=== PATIENT | female | born 1980 | race Caucasian/White ===

== ENCOUNTER 2018-05-09 20:02 | Emergency (ER) | payer SELFPAY ==
[2018-05-09 20:04] VITALS: BP 144/99; PULSE 83; RESP 12; TEMP 36.4; O2SAT 98; BMI 20.2
[2018-05-09 20:32] VITALS: BP 126/67; PULSE 73; RESP 15; O2SAT 99
[2018-05-09 20:38] VITALS: O2SAT 99
--- NOTE | 2018-05-09 20:40 | ED.RN ---
NO OLD EKG
--- NOTE | 2018-05-09 20:45 | RAD_ITS ---
STUDY: X-RAY CHEST REASON FOR EXAM: Female, 37 years old. Chest pain. TECHNIQUE: 2 frontal images of the chest were obtained. COMPARISON: April 11, 2015 FINDINGS: There is no new focal consolidation. There is no demonstrated pleural abnormality. Normal size heart. Normal mediastinum and madhu. Normal visualized pulmonary arteries. Normal visualized aortic arch and descending thoracic aorta. Normal visualized thoracic spine. Normal visualized ribs, clavicles, and shoulders. There is no demonstrated abnormality of the visualized soft tissue structures of the upper abdomen. RAD/Chest 1 View (Portable) IMPRESSION: No acute cardiopulmonary process. Electronically Signed: Alice Mcginnis MD at 21:39 EST Tel , Service support ,
[2018-05-09 21:24] LABS: Absolute Lymphocyte Count 0.44 X10^3/ul (0.83-4.51); Absolute Neutrophil Count 4.7 X10^3/uL (2.0-7.7); Basophil# 0.01 X10^3/uL; Basophil% 0.2 % (0-1); Eosinophil# 0.03 X10^3/uL; Eosinophils% 0.6 % (0-5); Hematocrit 36.5 % (37-47); Hemoglobin 12.6 g/dl (12.0-15.0); Lymphocyte # 0.44 X10^3/ul (4.0); Lymphocyte % 8.2 % (19-41); Mean Corp Hgb Conc 34.5 g/gl (32-36); Mean Corpuscular Hgb 31.3 pg (27.0-32.0); Mean Corpuscular Volume 90.6 fL (81-99); Mean Platelet Vol. 10.4 fl (6.2-12.0); Monocyte# 0.17 X10^3/uL; Monocyte% 3.2 % (0-10); Neutrophil # 4.72 X10^3/uL (2.7-7.7); Neutrophil % 87.8 % (47-70); Platelet Count 182 K/mm3 (150-450); RBC Distribution Width CV 12.1 % (11.6-14.6); RBC Distribution Width SD 39.6 fl (35.1-43.9); Red Blood Count 4.03 M/mm3 (4.2-5.4); White Blood Count 5.4 K/mm3 (4.4-11.0)
[2018-05-09 21:25] LABS: Differential Indicated SCAN CRITERIA MET; POSITIVE COUNT NO; POSITIVE DIFFERENTIAL YES; POSITIVE MORPHOLOGY NO
[2018-05-09 21:40] LABS: Pregnancy, Serum, hCG Quali. NEGATIVE Negative (0-9 Nonpreg)
[2018-05-09 21:44] LABS: Anion Gap 7 (5-15); BUN 21 mg/dL (7-18); BUN/Creat Ratio 22.9 RATIO (10-20); Calcium,Total 9.2 mg/dL (8.5-10.1); Chloride 106 mmol/L (98-107); Creatinine, Serum 0.92 mg/dL (0.55-1.02); EST Glomerular Filtration Rate 73 mL/min (>60); Est Glom Filt Rate - Afr Amer 88 mL/min (>60); Estimated Creatinine Clearance 79.83 ml/min; Glucose 104 mg/dL (74-106); Sodium Level 141 mmol/L (136-145); Thyroid Stim Hormone (TSH) 1.02 uIU/mL (0.358-3.74)
[2018-05-09 21:50] LABS: Differential Comment SCANNED
--- NOTE | 2018-05-09 22:05 | ED.DCSUM_ITS ---
- ER Visit Summary Date of Service: 05/09/18 Chief Complaint: Palpitations History of Present Illness: The patient is a 37 F. Prior PE years ago history of hypertension after being ill. Normal exam patient states that today she had heart racing. Denies any chest pain. No hemoptysis. No shortness of breath. She has some nausea without vomiting. No melena. No recent travel, surgery, immobilization. No leg pain or swelling. Physical Examination: Well-appearing young female. Vital signs are stable and afebrile. Her current pulse is 73 her pulse ox is 90% on room air no signs of hypoxia. Blood pressure 126/67. She does not look septic or toxic. She is in no distress. Her is at bedside. HEENT exam unremarkable. Pupils round reactive light. Moist weeks membranes. No facial droop. Neck nontender. No lymphadenopathy. No thyromegaly. Lungs clear to auscultation bilaterally. Heart regular rate and rhythm rate about 70s no murmur. Abdomen is soft nontender. Nondistended. Normal bowel sounds no peritoneal signs. Patient moving all 4 extremities. Neurovascular intact. Calves nontender without edema or cords. Neurologically patient is awake alert with no focal motor or sensory deficits. Back exam nontender. Skin normal. No petechiae or purpura. No rashes. Test Results: EKG sinus rhythm a rate of 74 with incomplete right bundle branch block. Otherwise no acute abnormalities. CBC normal with a white count of 5. Hemoglobin of 12. Serum test negative. Chemistries are normal. Troponin is normal. TSH is normal at 1.0. Chest x-ray shows normal cardiac silhouette mediastinum. Normal size heart. Emergency Department Course and Treatment: Repeat exam patient is doing well at 2210. Exam remains normal. I went over all test results with her and her [facility] nd. She will be discharged home. She will follow-up with [facility] who she has been evaluated by in the past. We discussed the possibility of her having a environmental monitoring specialist placed as an outpatient. Treatment Plan: Discharge and follow-up as an outpatient. Possible cardiac monitoring. Disposition: Discharge Impression: Acute palpitations uncertain etiology This note was generated with [employer] software. It may contain incorrect words, spelling, and punctuation that were not noted in review of the chart prior to signing ED Disposition - Plan for ED Patient: Chief Complaint: Palpitations Referrals: Care Physician,No Primary [Primary Care Provider] -
--- NOTE | 2018-05-09 22:20 | ED.DEP ---
ED Disposition - Plan for ED Patient: Disposition: Home or Assisted Living Chief Complaint: Palpitations Instructions: ED Palpitations Referrals: Nicolasa Vasquez DO [STAFF PHYSICIAN] - As soon as possible Additional Instructions: Follow-up with Dr. Luciana Singh. You and her can discuss possible outpatient cardiac monitoring.
[2018-05-09 22:31] VITALS: BP 116/72; PULSE 75; RESP 16; O2SAT 96
== END 2018-05-09 22:31 | disposition home or self-care (01) ==
PROVIDERS: Emergency Provider Emergency Medicine
DX: R00.2 Palpitations (principal); I10 Essential (primary) hypertension; I45.10 Unspecified right bundle-branch block; R11.0 Nausea; Z86.711 Personal history of pulmonary embolism
CPT/HCPCS: 71045; 80048; 84443; 84484; 84703; 85025; 93005; 99285; A4216

== ENCOUNTER → 2018-05-19 11:45 | Outpatient (CLI) | payer SELFPAY ==
[2018-05-09 20:04] VITALS: BMI 20.2
[2018-05-19 13:04] LABS: Absolute Lymphocyte Count 0.67 X10^3/ul (0.83-4.51); Absolute Neutrophil Count 4.4 X10^3/uL (2.0-7.7); Eosinophil# 0.01 X10^3/uL; Eosinophils% 0.2 % (0-5); Hematocrit 39.5 % (37-47); Hemoglobin 13.5 g/dl (12.0-15.0); Lymphocyte # 0.67 X10^3/ul (4.0); Lymphocyte % 12.6 % (19-41); Mean Corp Hgb Conc 34.2 g/gl (32-36); Mean Corpuscular Hgb 30.5 pg (27.0-32.0); Mean Corpuscular Volume 89.2 fL (81-99); Mean Platelet Vol. 10.2 fl (6.2-12.0); Monocyte# 0.28 X10^3/uL; Monocyte% 5.3 % (0-10); Neutrophil # 4.36 X10^3/uL (2.7-7.7); Neutrophil % 81.7 % (47-70); POSITIVE COUNT NO; POSITIVE DIFFERENTIAL NO; POSITIVE MORPHOLOGY NO; Platelet Count 203 K/mm3 (150-450); RBC Distribution Width CV 12.3 % (11.6-14.6); RBC Distribution Width SD 39.7 fl (35.1-43.9); Red Blood Count 4.43 M/mm3 (4.2-5.4); White Blood Count 5.3 K/mm3 (4.4-11.0)
== END ==
PROVIDERS: Family Provider Internal Medicine; PCP Internal Medicine; Referring Provider Nurse Practitioner; Visit Provider Nurse Practitioner
DX: D72.810 Lymphocytopenia (principal)
CPT/HCPCS: 36415; 85025

== ENCOUNTER → 2018-05-21 13:52 | Outpatient (CLI) | payer SELFPAY ==
[2018-05-09 20:04] VITALS: BMI 20.2
== END ==
PROVIDERS: Family Provider Internal Medicine; PCP Internal Medicine; Referring Provider Nurse Practitioner; Visit Provider Nurse Practitioner
DX: R00.2 Palpitations (principal); D72.810 Lymphocytopenia
CPT/HCPCS: 93225; 93226

== ENCOUNTER → 2018-05-28 06:37 | Outpatient (CLI) | payer SELFPAY ==
[2018-05-09 20:04] VITALS: BMI 20.2
--- NOTE | 2018-05-28 06:39 | CT_ITS ---
STUDY: CT BRAIN WITHOUT CONTRAST REASON FOR EXAM: Female, 37 years old. Pressure, tingling sensation for 3 weeks RADIATION DOSAGE (If Supplied By Facility): CTDIvol = ( 44.99 ) mGy, DLP = ( 762.36 ) mGycm TECHNIQUE: Transaxial CT imaging of the brain was performed without administration of intravenous contrast material. Individualized dose optimization techniques were used for this CT. COMPARISON: None. FINDINGS: Normal soft tissue structures. Normal calvarium. Normal size ventricles and extra-axial spaces for the patient's age. Normal white matter tracts of the cerebral hemispheres. Normal basal ganglia and thalami. Normal brainstem. Normal cerebellum. There is no intracranial hemorrhage. There are no findings of an acute ischemic infarction. Normal visualized paranasal sinuses. CT/Brain/Head without Contrast IMPRESSION: Normal unenhanced CT scan of the brain. Electronically Signed: Pepe Whyte MD at 17:39 EST , Service support ,
--- NOTE | 2018-05-28 06:40 | US_ITS ---
STUDY: ABDOMINAL ULTRASOUND REASON FOR EXAM: Female, 37 years old. Lymphopenia, dizziness TECHNIQUE: Transabdominal ultrasound was performed with real-time and static lira scale imaging. TECHNICAL QUALITY: Adequate. COMPARISON: Renal ultrasound of 02/09/2014 FINDINGS: Liver: The liver measures 15.5 cm. There is normal echogenicity of the liver. The bile ducts are within normal limits. There is hepatic color flow. The direction of portal flow is hepatopetal. There is no demonstrated mass lesion. Gallbladder: Normal distended gallbladder. The gallbladder wall measures 2.8 mm. There is a negative sonographic Rincon's sign. There is no pericholecystic fluid. There are no gallstones. Common Bile Duct (C.B.D.): The common bile duct measures 3.0 mm. Pancreas: Normal size of the head, body and tail of the pancreas. There is normal echogenicity of the pancreas. There is no demonstrated pancreatic mass or cyst. Spleen: Normal size of the spleen. The spleen measures 3.9 x 3.8 x 11.3 cm. No hepatic masses. Right Kidney: Normal size of the right kidney. The right kidney measures 11.8 x 5.1 x 5.5 cm. Normal renal cortex. The right cortex measures 1.6 cm. There is no demonstrated renal mass or cyst. There is no right hydronephrosis. There are small punctate calcifications of the right kidney measuring 4 mm. Left Kidney: Normal size of the left kidney. The left kidney measures 10.6 x 4.1 x 4.9 cm. Normal renal cortex. The left cortex measures 1.3 cm. There is no demonstrated renal mass or cyst. There is no left hydronephrosis. There are small punctate calcifications of the left kidney measuring up to 4 mm. Aorta: Normal caliber without evidence of aneurysm. Mild degree of atherosclerosis. I.V.C.: The IVC is patent. There is no ascites. US/Abdomen Complete IMPRESSION: 1. No hepatic or splenic masses. Normal size of the liver and spleen. 2. Nonobstructing bilateral nephrolithiasis. No hydronephrosis. 3. Mild abdominal aortic atherosclerosis. Electronically Signed: Pepe Whyte MD at 17:42 EST , Service support ,
== END ==
PROVIDERS: Family Provider Internal Medicine; PCP Internal Medicine; Referring Provider Nurse Practitioner; Visit Provider Nurse Practitioner
DX: R51 Headache (principal); D72.810 Lymphocytopenia
CPT/HCPCS: 70450; 76700

== ENCOUNTER → 2018-06-04 13:57 | Outpatient (CLI) | payer SELFPAY ==
[2018-05-09 20:04] VITALS: BMI 20.2
--- NOTE | 2018-06-04 14:06 | US_ITS ---
STUDY: ULTRASOUND TRANSVAGINAL CLINICAL: Female, 37 years old. Lymphopenia. TECHNIQUE: Transvaginal COMPARISON: None. FINDINGS: Normal uterine size measuring 8.9 cm in maximal craniocaudal dimension. There are no myometrial masses. Normal endometrial thickness measuring 7.4 mm. There are no endometrial masses, and there is no fluid in the endometrial cavity. Normal uterine cervix. The patient status post right oophorectomy. Normal left ovary, measuring 3.5 x 3.2 x 2.6 cm. There is a 2.0 x 2.2 x 1.4 cm simple cyst. There is no free fluid in the pelvis. Polycystic ovary disease: No. US/Pelvic (Non ) IMPRESSION: 2.0 x 2.2 x 1.4 cm simple left ovarian cyst. Electronically Signed: Alice Mcginnis MD at 16:07 EST Tel , Service support ,
--- NOTE | 2018-06-04 14:07 | US_ITS ---
STUDY: ULTRASOUND TRANSVAGINAL CLINICAL: Female, 37 years old. Lymphopenia. TECHNIQUE: Transvaginal COMPARISON: None. FINDINGS: Normal uterine size measuring 8.9 cm in maximal craniocaudal dimension. There are no myometrial masses. Normal endometrial thickness measuring 7.4 mm. There are no endometrial masses, and there is no fluid in the endometrial cavity. Normal uterine cervix. The patient status post right oophorectomy. Normal left ovary, measuring 3.5 x 3.2 x 2.6 cm. There is a 2.0 x 2.2 x 1.4 cm simple cyst. There is no free fluid in the pelvis. Polycystic ovary disease: No. US/Transvaginal Non- IMPRESSION: 2.0 x 2.2 x 1.4 cm simple left ovarian cyst. Electronically Signed: Alice Mcginnis MD at 16:07 EST Tel , Service support ,
--- OUTSIDE RECORDS SUMMARY | 2018-08-09 03:53 | XMS RPT_ITS | Continuity of Care Document ---
:1980 Author Organization [facility] Address [facility] [address] [address] Phone Care Team Providers Name Role Phone Nicolasa Vasquez DO Unavailable Physical Therapy, [facility] Unavailable GravElly richardson Unavailable Unavailable Unavailable Unavailable Problems Name Dates Details Abdominal aortic atherosclerosis (I70.0, 440.0) Status: Active Abnormal blood finding (R79.9, 790.99) Status: Active Abortions/Miscarriages Comments: Spontaneous , 1, 1st trimester Status: Active Anxiety (F41.9, 300.00) Status: Active Bilateral nephrolithiasis (N20.0, 592.0) Comments: asx Status: Active Body mass index (BMI) of 19.0-19.9 in adult (Z68.1, V85.1) Status: Active Current nonsmoker (Renamed from Current non-smoker) (Z78.9, V49.89) Status: Active Deliveries (Parity) Comments: Term, 5 Status: Active Dizzy spells (R42, 780.4) Comments: i think related to adrenal fatigue -- hormone imbalance -- that saliva testing is pending Status: Active Elevated liver enzymes (R74.8, 790.5) Comments: better nowr/t tylenol, had been using pretty consistently with fever, cough and pneumonia Status: Active Insomnia (G47.00, 780.52) Comments: sleeping better now on adrenal support Status: Active 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 will do hypercoag labs after off xarelto for 2 weeks.right middle lobe pulmonary arterial branches 03-31-15. she was sick and with pneumonia at time had PE. no estrogen. was nursing at time. 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 Xray to rule out fracture.Doppler US of legs(Recent PE, recently stopped xarelto, recent travel) ,no symptoms of PEPhysical therapy for enrike ceps strengthening exercises.Stretching exercisesAvoid high impact activityNaproxen BID prn for pain and before PT.Rest, Icing, Compression, Elevation.If symptoms dont improve in the next 2-3 weeks, usman gonzalez an appointment for follow up.pain in rt knee for 2 years now worse for 2 weeks.Worse with bending, driving, sitting, walking up and down stairs, running, squatting.Radiates up and down thigh and le g laterally.Doesnt hurt on standing or putting weight on knee.Denies falls injuries.Worse last nightBlod clot Mar 2015, no travel at that time, xarelto 6 months , end of august stopped xarelto. At that time had PNA, pleuritic CP, fever for 12 days.HAs protein S deficiency and seeing anjana next week.Doppler 3 weeks ago negative.[place] car ride 10 hours, 1week ago and took breaks, pain is worse after th atNo Chest pain or shortness of breath., no fever or pleuritic chest pain now.No pain medications, tried ice not helps with pain. No redness/swelling Status: Active Unspecified Diagnosis Status: Active Medications Name Dates Details af betafood Active 6 daily cataplex d Active 6 daily cataplez d Active cortisol balance Active 2 daily Emergen-C Immune Oral Packet Active 1 daily Multivitamin Women Oral Tablet Active 1 daily pineal code drops Active 2 drops daily theanine serene with relora Active 4 daily ANUSOL-HC, 25MG (Rectal Suppository) 1 1/2 (one and a half) Suppository qhs / HS for 0 days Quantity: 30 {Suppository} Refills: 2 Ordered:06-May-2010 ADRIANA Hammonds Start : 15-Mar-2008 End : 06-May-2010 Inactive AUGMENTIN, 875-125MG (Oral Tablet) 1 (one) Tablet Tablet bid for 0 days Quantity: 20 {Tablet} Refills: 0 Ordered:16-Apr-2015 ADRIANA Hammonds Start : 16-Mar-2015 End : 16-Apr-2015 Inactive LEVOFLOXACIN, 500MG (Oral Tablet) 1 (one) Tablet qd for 0 days Quantity: 14 {Tablet} Refills: 0 Ordered:16-Apr-2015 ADRIANA Hammonds Start : 21-Mar-2015 End : 16-Apr-2015 Inactive MEDROL (BRIANNA), 4MG (Oral Tablet) 1 (one) Tablet uad follow directions on box for 30 days Quantity: 1 {Package} Refills: 0 Ordered:08-Nov-2015 Chong Pal MD Start : 08-Nov-2015 End : 08-Dec-2015 Inactive NAPROXEN SODIUM, 220MG (Oral Tablet) 1 (one) Tablet two times daily, as needed for 7 days Quantity: 14 {Tablet} Refills: 0 Ordered:15-Nov-2015 Chong Pal MD Start : 07-Nov-2015 End : 14-Nov-2015 Inactive Comments:Medication taken as needed. No Known Historical Medications XARELTO, 20MG (Oral Tablet) 1 (one) Tablet qd for 0 days Quantity: 30 {Tablet} Refills: 0 Ordered:24-Sep-2015 ADRIANA Hammonds Start : 16-Apr-2015 End : 24-Sep-2015 Inactive LEONCIO 28, 3-0.03MG (Oral Tablet) 1 QD for 0 days Refills: 0 Ordered:17-Sep-2006 ADRIANA Hammonds End : 17-Sep-2006 Inactive IBUPROFEN, 100MG (Oral Tablet) 3 (three) Tablet tid/prn for 0 days Refills: 0 Ordered:14-Apr-2006 Emi Matthews Start : 14-Apr-2006 End : 15-Mar-2008 Discontinued Comments:home supply pre betsey vitamin End : 15-Mar-2008 Discontinued PRENATE ELITE, [id number]-MCG-MCG (PO Tab) 1 qd for 0 days Refills: 0 Ordered:16-Mar-2015 ADRIANA Hammonds End : 16-Mar-2015 Discontinued Comments:This order discontinued per [facility]. Allergies and Adverse Reactions Name Dates Details No Known Drug Allergies (Allergy) Status: Active Past Medical History Name Dates Details Chest pain (R07.9, 786.50) Status: Inactive as of 16-Apr-2015 Cough (R05, 786.2) Comments: maybe viral uri vs bacterial Status: Inactive as of 16-Apr-2015 Elevated d-dimer (R79.89, 790.92) Status: Inactive as of 16-Apr-2015 Fever (R50.9, 780.60) Status: Inactive as of 16-Apr-2015 Foot pain (M79.673, 729.5) Comments: Hinds's neuroma. handout given nsaids rest no high heels. pads for metatarsal heads. if not better inject. Status: Inactive as of 16-Mar-2015 Pain of hand, unspecified laterality (M79.643, 729.5) Status: Inactive as of 16-Mar-2015 Pressure in head (R51, 784.0) Status: Resolved as of 07-Jun-2018 Rectal bleeding (K62.5, 569.3) Comments: suspect internal hemorrhoid Status: Resolved as of 28-Nov-2008 Tendonitis of other site (M77.8, 727.09) Comments: de Quervain Tenosynovitis.Right- Wear brace if it helps. Continue anti-inflam. Status: Resolved as of 28-Nov-2008 Procedures Procedure Dates Details Oophorectomy; Unilateral Completed Comments: 1996 Date Value Details 04-Jun-2018 Pelvic (Non ) Result: Comments: See Note; NOTES: [facility] Imaging Services [address] [place] [address] Pelvic (Non ) MR#: [id number] Acct: [id number] Name: BEAN IGLESIAS Rep #: [id number] : 1980 F 37 From: Alice Mcginnis MD PCP: Nicolasa Vasquez DO Status: REG CLI Study: Pelvic (Non ) Date of Exam: 06/04/18 Exam# [id number] Ordering Dr: Tahira Arriaga SENIOR QUALITY ASSURANCE ANALYSTKelsy STUDY: ULTRASOUN D TRANSVAGINAL CLINICAL: Female, 37 years old. Lymphopenia. TECHNIQUE: Transvaginal COMPARISON: None. FINDINGS: Normal uterine size measuring 8.9 cm in maximal c raniocaudal dimension. There are no myometrial masses. Normal endometrial thickness measuring 7.4 mm. There are no endometrial masses, and there is no fluid in the endometrial cavity. Normal uterine c ervix. The patient status post right oophorectomy. Normal left ovary, measuring 3.5 x 3.2 x 2.6 cm. There is a 2.0 x 2.2 x 1.4 cm simple cyst. There is no free fluid in the pelvis. Polycystic ovary disease: No. US/Pelvic (Non ) IMPRESSION: 2.0 x 2.2 x 1.4 cm simple left ovarian cyst. Electronically Signed: Alice Mcginnis MD at 16:07 EST Tel , Service support , CC: Tahira Arriaga NP; Nicolasa Vasquez DO Vertical Boring Mill Operator: Signed 04-Jun-2018 Transvaginal Non- Result: Comments: See Note; NOTES: [facility] Imaging Services [address] [place] [address] Transvaginal Non- MR#: [id number] Acct: [id number] Name: CHUCKGARRY RoseANISH Ansari Rep #: [id number] : 1980 F 37 From: Alice Mcginnis MD PCP: Nicolasa Vasquez DO Status: REG CLI Study: Transvaginal Non- Date of Exam: 06/04/18 Exam# [id number] Ordering Dr: Tahira Arriaga SENIOR QUALITY ASSURANCE ANALYSTKelsy STUDY: U LTRASOUND TRANSVAGINAL CLINICAL: Female, 37 years old. Lymphopenia. TECHNIQUE: Transvaginal COMPARISON: None. FINDINGS: Normal uterine size measuring 8.9 cm in m aximal craniocaudal dimension. There are no myometrial masses. Normal endometrial thickness measuring 7.4 mm. There are no endometrial masses, and there is no fluid in the endometrial cavity. Normal u terine cervix. The patient status post right oophorectomy. Normal left ovary, measuring 3.5 x 3.2 x 2.6 cm. There is a 2.0 x 2.2 x 1.4 cm simple cyst. There is no free fluid in the pelvis. Polycysti c ovary disease: No. US/Transvaginal Non- IMPRESSION: 2.0 x 2.2 x 1.4 cm simple left ovarian cyst. Electronically Signed: Alice Mcginnis MD at 16:07 EST Tel , Service support , CC: Tahira Arriaga NP; Nicolasa Vasquez DO [employer] Boring Mill Operator: Signed 28-May-2018 Abdomen Complete Result: Comments: See Note; NOTES: [facility] Imaging Services [address] [place] [address] Abdomen Complete MR#: [id number] Acct: [id number] Name: BEAN IGLESIAS Rep #: [id number] : 1980 F 37 From: Pepe Whyte MD PCP: Nicolasa Vasquez DO Status: REG CLI Study: Abdomen Complete Date of Exam: 05/28/18 Exam# [id number] Ordering Dr: Tahira Arriaga STUDY: ABDOMINAL ULTRASOUN D REASON FOR EXAM: Female, 37 years old. Lymphopenia, dizziness TECHNIQUE: Transabdominal ultrasound was performed with real-time and static lira scale imaging. TECHNICAL QUALITY: Adequate. COMPARIS ON: Renal ultrasound of 02/09/2014 FINDINGS: Liver: The liver measures 15.5 cm. There is normal echogenicity of the liver. The bile ducts are within normal limits. T here is hepatic color flow. The direction of portal flow is hepatopetal. There is no demonstrated mass lesion. Gallbladder: Normal distended gallbladder. The gallbladder wall measures 2.8 mm. There is a negative sonographic Rincon's sign. There is no pericholecystic fluid. There are no gallstones. Common Bile Duct (C.B.D.): The common bile duct measures 3.0 mm. Pancreas: Normal size of the head, reddy dy and tail of the pancreas. There is normal echogenicity of the pancreas. There is no demonstrated pancreatic mass or cyst. Spleen: Normal size of the spleen. The spleen measures 3.9 x 3.8 x 11.3 cm. No hepatic masses. Right Kidney: Normal size of the right kidney. The right kidney measures 11.8 x 5.1 x 5.5 cm. Normal renal cortex. The right cortex measures 1.6 cm. There is no demonstrated renal ma ss or cyst. There is no right hydronephrosis. There are small punctate calcifications of the right kidney measuring 4 mm. Left Kidney: Normal size of the left kidney. The left kidney measures 10.6 x 4. 1 x 4.9 cm. Normal renal cortex. The left cortex measures 1.3 cm. There is no demonstrated renal mass or cyst. There is no left hydronephrosis. There are small punctate calcifications of the left kidney measuring up to 4 mm. Aorta: Normal caliber without evidence of aneurysm. Mild degree of atherosclerosis. I.V.C.: The IVC is patent. There is no ascites. US/Abdomen Complete IMPRESSION: 1. No hepatic or splenic masses. Normal size of the liver and spleen. 2. Nonobstructing bilateral nephrolithiasis. No hydronephrosis. 3. Mild abdominal aorti c atherosclerosis. Electronically Signed: Pepe Whyte MD at 17:42 EST , Service support , CC: Tahira Arriaga NP; Nicolasa Vasquez DO [employer] Boring Mill Operator: Signed 28-May-2018 Brain/Head without Contrast Result: Comments: See Note; NOTES: [facility] Imaging Services [address] [place] [address] Brain/Head without Contrast MR#: [id number] Acct: [id number] Name: BEAN IGLESIAS Rep #: [id number] : 1980 F 37 From: Pepe Whyte MD PCP: Nicolasa Vasquez DO Status: REG CLI Study: Brain/Head without Contrast Date of Exam: 05/28/18 Exam# [id number] Ordering Dr: Tahira Arriaga SENIOR QUALITY ASSURANCE ANALYST-Migel STUD Y: CT BRAIN WITHOUT CONTRAST REASON FOR EXAM: Female, 37 years old. Pressure, tingling sensation for 3 weeks RADIATION DOSAGE (If Supplied By Facility): CTDIvol = ( 44.99 ) mGy, DLP = ( 762.36 ) mGycm TECHNIQUE: Transaxial CT imaging of the brain was performed without administration of intravenous contrast material. Individualized dose optimization techniques were used for this CT. COMPARISON: No ne. FINDINGS: Normal soft tissue structures. Normal calvarium. Normal size ventricles and extra-axial spaces for the patient's age. Normal white matter tracts of th e cerebral hemispheres. Normal basal ganglia and thalami. Normal brainstem. Normal cerebellum. There is no intracranial hemorrhage. There are no findings of an acute ischemic infarction. Normal visual ized paranasal sinuses. CT/Brain/Head without Contrast IMPRESSION: Normal unenhanced CT scan of the brain. Electronically Signed: Pepe Whyte MD at 17:39 EST , Service support , CC: Tahira Arriaga SENIOR QUALITY ASSURANCE ANALYST; Nicolasa Vasquez DO [employer] Mill Operator: Signed 20-Feb-2016 PT D/C of Non Returning Pt (1) Result: Comments: See Note; NOTES: [facility] [address] [place], [place] [address] Fax REHABILITATION SERVICES DISCHA RGE SUMMARY MR#: [id number] Acct: [id number] Name: BEAN IGLESIAS Rep #: [id number] : 1980 35 From: Tonia Medina DPT Referring Dr.: Michelle Thacker DO Status: REG RCR Insurance: SELF PAY INSURANCE HP - Discharge Summary (1) - Patient Information BEAN IGLESIAS was seen in my office for initial evaluation on 11/20/15. The following Plan of Care was established for this patient: Initial Frequen cy: 1x/Week Initial Duration: 4 Weeks - Anticipated Interventions Patient/Client Instruction: Educate patient on: Plan of Care For the Purpose of:: To decrease pain, To improve muscle performance and m otor function, To improve gait and locomotor functions, To increase flexibility/ROM, To improve endurance Therapeutic Exercise to Include: Strength training, Endurance training, Body mechanics, Gait and locomotor training, Passive ROM, Active ROM For the Purpose of:: To decrease pain, To increase ROM, To improve muscle performance and motor function, To improve gait and locomotor functions, To increas e flexibility/ROM, To improve endurance This patient was last seen in our office . Pertinent comments regarding their Physical therapy will appear below: Patient has not attended physical therapy in ov er 4 weeks- PT feels at this time it is appropriate to d/c and pt to return to MD as needed. At this point I will be discontinuing this patient from physical therapy. I would be happy to see this kecia ent again in the future if found appropriate by the physician. Thank you! Tonia Medina <Electronically signed by Tonia Medina DPT> 02/20/16 1013 CC: Michelle Thacker DO; Chong Pal ELR Signed 20-Nov-2015 Inital Evaluation (1) - PT Result: Comments: See Note; NOTES: [facility] [address] [place] [address] Fax REHABILITATION SE [facility] INITIAL EVALUATION MR#: [id number] Acct: [id number] Name: BEAN IGLESIAS Rep #: [id number] : 1980 35 From: Yisel Sidhu Referring Dr.: Chong Pal Status: REG RCR Insurance: SELF PAY INSURANCE Patient's Visit Information BEAN IGLESIAS is a 35 year old F referred to Physical Therapy by Chong Pal with a diagnosis of Right Knee Pain. Date of Evaluation: 11/20/15 Physical Therapist: Yisel Sidhu - Visit Plan Frequency: 1x/Week Duration: 4 Weeks - Subjective Subjective: Pt denies any known injury to R knee. Pt reports R anterior and lateral knee pain with any a ctivity that requires her to bend her knee especially with knealing, bending, or jumping. R knee pain for about 2 weeks. Pt reports decreased pain with activity over the last week. - Pain R kne Pain Intensity (Out of 10): 3 Pain Intensity Range: 8 - Objective Palpation: Normal bony landmark palaption, no swelling noted. Sensation: Normal B LE sensation. Pt denies numbness or tingling. M MT: L LE 5/5 R LE 4/5 with increased anterior and lateral knee pain. - Goals Goal 1:: pt will have decreased pain to 0/10 with activity to allow her to return to PLOF. Goal Time Frame: 2-4 Weeks G oal 2:: Pt will increase R LE strength to 5/5 to return to PLOF. Goal Time Frame: 2-4 Weeks Goal 3:: Pt will be independent with HEP to help improve strength, endurance, and activity tolerance to dec rease pain. Goal Time Frame: 2-4 Weeks - Rehabilitation Potential Physical Therapy Diagnosis: Right knee weakness and pain Rehabilitation Potential: Excellent - Anticipated Interventions Patient /Client Instruction: Educate patient on: Plan of Care For the Purpose of:: To decrease pain, To improve muscle performance and motor function, To improve gait and locomotor functions, To increase flex ibility/ROM, To improve endurance Therapeutic Exercise to Include: Strength training, Endurance training, Body mechanics, Gait and locomotor training, Passive ROM, Active ROM For the Purpose of:: To decrease pain, To increase ROM, To improve muscle performance and motor function, To improve gait and locomotor functions, To increase flexibility/ROM, To improve endurance Thank you for the tamara rosado to evaluate your patient. For Medicare and Medicare HMO plans, please review the plan of care and approve it. It will need to be FAXED BACK to us at [phone] for Medicare purposes. Cynthia roldan let me know if there are questions or concerns regarding this plan of care. Physician Signature: Date: <Electronically signed by Yisel Sidhu > 11/20/15 1521 CC: Chong Pal Signed For Medicare only, by signing this I certify the plan of care. Physicians Signature Date 16-Nov-2015 Venous Duplex Lower Extremity Result: Comments: See Note; NOTES: [facility] Cardiovascular Services [address] [place] [address] Venous Duplex US, Unilateral 11/15/15 1311 MR#: [id number] Acct: [id number] Name: BEAN IGLESIAS Rep #: [id number] : 1980 35 From: Constantine Justin MD Attending Dr: Chong Pal Status: REG CLI Ordering Dr: Chong Pal Date: 11/15/15 Location: [facility] Sex: F C Admitted : Reason For Study: LEG PAIN RIGHT LEFT GSV is normal. CFV is compressible, spontaneous, phasic , CFV is compressible, spontaneous, phasic, competent, and demonstrates normal competent and d emonstrates normal augmentation. augmentation. FV is compressible, spontaneous, phasic, competent and demonstrates normal augmentation. POP V is compressible, spontaneous, phasic, competent and de monstrates normal augmentation. T/P Trunk is compressible. PTV is compressible. RT PerV is compressible. Procedure Exam performed in department. A preliminary report was called and/or faxed to Colin Pal. Interpretation Summary Deep veins of the right lower extremity are patent and compressible segmentally. There is no evidence of right lower extremity deep vein thrombosis. Valvular competen ce appears intact within the proximal deep venous system on the right . The right greater saphenous vein appears patent and compressible segmentally. Ordering Physician: Chong Pal Performed By: Lizzie Hernandez RVT [id number] Date Constantine Justin MD CC: Chong Pal Date Dictated: 11/15/15 1311 Date Transcribed: 11/16/15 0242 [employer] Operator: Signed 07-Nov-2015 Knee 4 or More Views Result: Comments: See Note; NOTES: [facility] Imaging Services [address] [place] [address] Verdana 4d Knee 4 or More Views MR#: [id number] Acct: [id number] Name: BEAN IGLESIAS Rep #: [id number] : 1980 F 35 From: David Clark MD PCP: Mary Rose MD Status: REG CLI Study: Knee 4 or More Views Date of Exam: 11/07/15 Exam# [id number] Ordering Dr: Chong Pal STUDY: X-RAY - RIGHT KNEE REASON FOR EXAM: Female, 35 years old. Knee pain after running TECHNIQUE: 4 view(s) of the knee. COMPARISON: None. FINDINGS: N ormal visualized distal femur. Normal visualized proximal tibia and fibula. Normal proximal tibiofibular articulation. Normal medial femorotibial compartment. Normal lateral femorotibial compartment . Normal patellofemoral articulation. There is a soft tissue prominence in the suprapatellar region suggesting a small volume joint effusion. The soft tissue structures are unremarkable. IMPRESSION: Small joint effusion. Otherwise normal x-ray examination of the knee. Electronically Signed: David Clark MD, FACR at 16:53 EDT Tel , Service support [phone], RAD/Knee 4 or More Views IMPRESSION: Small joint effusion. Otherwise normal x-ray examination of the knee. Electronically Signed: David Clark MD, FACR at 16:53 EDT , Service support [phone], CC: Mary Rose MD; Chong Pal [employer]oring [employer] Operator: Signed 19-Oct-2015 Venous Duplex Lower Extremity Result: Comments: See Note; NOTES: [facility] Cardiovascular Services [address] [place] [address] Venous Duplex US - Lorenzo Extrem 10/19/15 1316 MR#: [id number] Acct: [id number] Name: BEAN IGLESIAS Rep #: [id number] : 1980 35 From: Constantine Justin MD Attending Dr: Mary Rose MD Status: REG CLI Ordering Dr: Mary Rose MD Date: 10/19/15 Location: [facility] Sex: F C Admitted: Reason For Study: PULMONARY EMBOLISM RIGHT LEFT GSV is normal. GSV is normal. CFV is compressible, spontaneous, phasic, CFV is compressible, spontaneous, phasic , competent and de monstrates normal competent, and demonstrates normal augmentation. augmentation. FV is compressible, spontaneous, phasic, FV is compressible, spontaneous, phasic, competent and demonstrates normal co mpetent and demonstrates normal augmentation. augmentation. POP V is compressible, spontaneous, phasic, POP V is compressible, spontaneous, phasic, competent and demonstrates normal competent and de monstrates normal augmentation. augmentation. T/P Trunk is compressible. T/P Trunk is compressible. PTV is compressible. PTV is compressible. RT PerV is compressible. LT PerV is compressible. RT LS V has thick pruitt. Left LSV has thick pruitt. Rt LSV is compressible. Left LSV is competent. Procedure Exam performed in department. A preliminary report was called and/or faxed to DR ROSE. Int erpretation Summary Deep veins of the lower extremities are bilaterally patent and compressible segmentally. There is no evidence of deep vein thrombosis on either side. Valvular competence appears in tact within the proximal deep venous systems bilaterally. The greater saphenous veins appear bilaterally patent and compressible segmentally. Small saphenous veins are patent and compressible bilate rally, though demonstrate chronic vein wall thickening. Ordering Physician: Mary Rose Pe rformed By: Summer Judd RDCS 10/19/15 1355 Date Constantine Justin MD CC: Nael Rose MD Date Dictated: 10/19/15 1316 Date Transcribed: 10/19/15 1351 [employer] Operator: Signed 11-Apr-2015 Chest PA and Lateral Result: Comments: See Note; NOTES: [facility] Imaging Services [address] [place] [address] Verdana 4d Chest PA and Lateral MR#: [id number] Acct: [id number] Name: BEAN IGLESIAS Rep #: [id number] : 1980 F 34 From: Young Garibay PCP: Mary Rose MD Status: REG CLI Study: Chest PA and Lateral Date of Exam: 04/11/15 Exam# [id number] Ordering Dr: Hernandez Hansen MD STUDY: X-RAY CHEST REASON FOR EXAM: Female, 34 years old. Shortness of breath TECHNIQUE: Frontal and lateral views of the chest. COMPARISON: None. FINDIN GS: The lungs are clear and expanded. There is no demonstrated pleural abnormality. Normal size heart. Normal mediastinum and madhu. Normal visualized pulmonary arteries. Normal visualized aortic a rch and descending thoracic aorta. Normal visualized thoracic spine. Normal visualized ribs, clavicles, and shoulders. There is no demonstrated abnormality of the visualized soft tissue structure s of the upper abdomen. IMPRESSION: No acute cardiopulmonary disease. Electronically Signed: Young Garibay DO at 23:48 EST , Service support [phone], RAD/Chest PA and Lateral IMPRESSION: No acute cardiopulmonary disease. Electronically Signed: Young Garibay DO at 23:48 EST T el [phone], Service support [phone], CC: Mary Rose MD; Hernandez Hansen MD Vertical Boring Mill Operator: Signed 21-Mar-2015 CTA Chest W/WO Contrast Result: Comments: See Note; NOTES: [facility] Imaging Services [address] [place] [address] Verdana 4d CTA Chest W/WO Contrast MR#: [id number] Acct: [id number] Name: BEAN BOYER Rep #: [id number] : 1980 F 34 From: Mohan Bray MD PCP: Mary Rose MD Status: REG CLI Study: CTA Chest W/WO Contrast Date of Exam: 03/21/15 Exam# [id number] Ordering Dr: Mary Sepulveda MD STUDY: CTA CHEST REASON FOR EXAM: Female, 34 years old. 5 day history of right upper chest pain with fever and cough. Elevated d-dimer. RADIATION DOSAGE (If Supplied By Facility): CTDIvol = ( 14.15 ) mGy, DLP = ( 615.86 ) mGycm TECHNIQUE: The examination was performed with the intravenous administration of 75ml ml of Isovue 370 contrast material. Post-processing of the asha ographic images was performed, with multiplanar reformation and 3D reconstruction. COMPARISON: None. FINDINGS: Inhomogeneous appearance of the right the thyroi d. There is evidence of intraluminal filling defects in the right middle lobe pulmonary arterial branches in keeping with acute pulmonary emboli. Normal thoracic aorta and visualized great vessels. There is no demonstrated aortic dissection. Normal heart and pericardium. Normal mediastinum. Normal hilar regions. Normal visualized trachea and bronchi. The lungs are well expanded. Small r ight old fusion with consolidation in the right middle lobe. This is in keeping with a pneumonic infiltration. Normal chest wall structures. Normal osseous structures. Normal visualized upper abd omen. IMPRESSION: Dense consolidation in the right middle lobe with small right pleural effusion Pulmonary emboli seen in the right middle lobe pulmonary arteri al branches. 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 Status: Active Smoking Status Name Dates Details Never smoker Vital Signs Date Test Result Details [id number]-Dcl-[id number]:36 Temperature 97.8 f Comments: Method: Temporal Pulse 81 /min Comments: Pattern: Regular Respiration Rate 18 /min Comments: Pattern: Unlabored O2 SAT 99 % Comments: Room air BP Systolic 120 mm[Hg] Comments: Patient Position: Sitting; Cuff Location: Left Arm; Cuff Size: Standard BP Diastolic 78 mm[Hg] Comments: Patient Position: Sitting; Cuff Location: Left Arm; Cuff Size: Standard Weight 128.2 lb Height 68 in Body Mass Index Calculated 19.49 kg/m2 Body Surface Area Calculated 1.69 m2 24-May-20188:46 Temperature 98.1 f Comments: Method: Temporal Pulse 85 /min Comments: Pattern: Regular Respiration Rate 17 /min Comments: Pattern: Unlabored O2 SAT 99 % Comments: Room air BP Systolic 120 mm[Hg] Comments: Patient Position: Sitting; Cuff Location: Left Arm; Cuff Size: Standard BP Diastolic 76 mm[Hg] Comments: Patient Position: Sitting; Cuff Location: Left Arm; Cuff Size: Standard Weight 126.2 lb Height 68 in Body Mass Index Calculated 19.19 kg/m2 Body Surface Area Calculated 1.68 m2 33-Jpj-938397:03 Comments: orthos:sitting- bp 112/70 pulse 98standing- bp 104/70 pulse 94 Temperature 98 f Comments: Method: Temporal Pulse 95 /min Comments: Pattern: Regular O2 SAT 98 % Comments: Room air BP Systolic 110 mm[Hg] Comments: Patient Position: Sitting; Cuff Location: Left Arm; Cuff Size: Standard BP Diastolic 72 mm[Hg] Comments: Patient Position: Sitting; Cuff Location: Left Arm; Cuff Size: Standard Weight 126.2 lb Height 68 in Body Mass Index Calculated 19.19 kg/m2 Body Surface Area Calculated 1.68 m2 :26 Temperature 98.1 f Comments: Method: Temporal Pulse 86 /min Comments: Pattern: Regular Respiration Rate 16 /min Comments: Pattern: Unlabored O2 SAT 99 % Comments: Room air BP Systolic 122 mm[Hg] Comments: Patient Position: Sitting; Cuff Location: Left Arm; Cuff Size: Standard BP Diastolic 74 mm[Hg] Comments: Patient Position: Sitting; Cuff Location: Left Arm; Cuff Size: Standard Weight 133 lb Height 68 in Body Mass Index Calculated 20.22 kg/m2 Body Surface Area Calculated 1.72 m2 :12 Temperature 97.6 f Comments: Method: Temporal Pulse 60 /min Comments: Pattern: Regular Respiration Rate 20 /min Comments: Pattern: Unlabored O2 SAT 99 % Comments: Room air BP Systolic 90 mm[Hg] Comments: Patient Position: Sitting; Cuff Location: Left Arm; Cuff Size: Standard BP Diastolic 60 mm[Hg] Comments: Patient Position: Sitting; Cuff Location: Left Arm; Cuff Size: Standard Weight 133 lb Height 68 in Body Mass Index Calculated 20.22 kg/m2 Body Surface Area Calculated 1.72 m2 :32 Temperature 97.6 f Comments: Method: Temporal Pulse 74 /min Comments: Pattern: Regular Respiration Rate 18 /min Comments: Pattern: Unlabored O2 SAT 99 % Comments: Room air BP Systolic 110 mm[Hg] Comments: Patient Position: Sitting; Cuff Location: Left Arm; Cuff Size: Standard BP Diastolic 70 mm[Hg] Comments: Patient Position: Sitting; Cuff Location: Left Arm; Cuff Size: Standard Weight 124 lb Height 68 in Body Mass Index Calculated 18.85 kg/m2 Body Surface Area Calculated 1.67 m2 :29 Temperature 97.2 f Comments: Method: Temporal Pulse 78 /min Comments: Pattern: Regular Respiration Rate 18 /min Comments: Pattern: Unlabored O2 SAT 98 % Comments: Room air BP Systolic 110 mm[Hg] Comments: Patient Position: Sitting; Cuff Location: Left Arm; Cuff Size: Standard BP Diastolic 74 mm[Hg] Comments: Patient Position: Sitting; Cuff Location: Left Arm; Cuff Size: Standard Weight 124 lb Height 68 in Body Mass Index Calculated 18.85 kg/m2 Body Surface Area Calculated 1.67 m2 :13 Comments: last motrin 1:30am Temperature 99.9 f Comments: Method: Oral Pulse 90 /min Comments: Pattern: Regular Respiration Rate 18 /min Comments: Pattern: Unlabored O2 SAT 98 % Comments: Room air BP Systolic 114 mm[Hg] Comments: Patient Position: Sitting; Cuff Location: Left Arm; Cuff Size: Standard BP Diastolic 74 mm[Hg] Comments: Patient Position: Sitting; Cuff Location: Left Arm; Cuff Size: Standard Weight 124 lb Height 68 in Body Mass Index Calculated 18.85 kg/m2 Body Surface Area Calculated 1.67 m2 :37 Temperature 98.8 f Comments: Method: Temporal Pulse 86 /min Comments: Pattern: Regular Respiration Rate 16 /min Comments: Pattern: Unlabored O2 SAT 98 % Comments: Room air BP Systolic 116 mm[Hg] Comments: Patient Position: Sitting; Cuff Location: Left Arm; Cuff Size: Standard BP Diastolic 78 mm[Hg] Comments: Patient Position: Sitting; Cuff Location: Left Arm; Cuff Size: Standard Weight 124 lb Height 68 in Body Mass Index Calculated 18.85 kg/m2 Body Surface Area Calculated 1.67 m2 :58 Temperature 98.1 f Comments: Method: Oral Pulse 68 /min Comments: Pattern: Regular Respiration Rate 18 /min Comments: Pattern: Unlabored BP Systolic 102 mm[Hg] Comments: Patient Position: Sitting; Cuff Location: Left Arm; Cuff Size: Standard BP Diastolic 70 mm[Hg] Comments: Patient Position: Sitting; Cuff Location: Left Arm; Cuff Size: Standard Weight 120 lb Height 68 in Body Mass Index Calculated 18.25 kg/m2 Body Surface Area Calculated 1.65 m2 :46 Temperature 97.6 f Comments: Method: Oral Pulse 70 /min Comments: Pattern: Regular Respiration Rate 18 /min Comments: Pattern: Unlabored BP Systolic 100 mm[Hg] Comments: Patient Position: Sitting; Cuff Location: Left Arm; Cuff Size: Standard BP Diastolic 64 mm[Hg] Comments: Patient Position: Sitting; Cuff Location: Left Arm; Cuff Size: Standard Weight 120 lb :59 Temperature 98 f Comments: Method: Oral Pulse 68 /min Comments: Pattern: Regular Respiration Rate 18 /min Comments: Pattern: Unlabored BP Systolic 110 mm[Hg] Comments: Patient Position: Sitting; Cuff Location: Left Arm; Cuff Size: Standard BP Diastolic 64 mm[Hg] Comments: Patient Position: Sitting; Cuff Location: Left Arm; Cuff Size: Standard Weight 128 lb Height 0 in Head Circumference 0.00 cm :09 Temperature 97.7 f Comments: Method: Oral Pulse 78 /min Comments: Pattern: Regular Respiration Rate 20 /min Comments: Pattern: Unlabored BP Systolic 90 mm[Hg] Comments: Patient Position: Sitting; Cuff Location: Left Arm; Cuff Size: Standard BP Diastolic 60 mm[Hg] Comments: Patient Position: Sitting; Cuff Location: Left Arm; Cuff Size: Standard Weight 123 lb Height 0 in Head Circumference 0.00 cm :54 Temperature 98.5 f Comments: Method: Undefined Pulse 64 /min Comments: Pattern: Regular Respiration Rate 16 /min Comments: Pattern: Undefined BP Systolic 86 mm[Hg] Comments: Patient Position: Sitting; Cuff Location: Left Arm; Cuff Size: Standard BP Diastolic 58 mm[Hg] Comments: Patient Position: Sitting; Cuff Location: Left Arm; Cuff Size: Standard Weight 124 lb Height 0 in Head Circumference 0.00 cm :13 Temperature 99.1 f Comments: Method: Oral Pulse 58 /min Comments: Pattern: Regular Respiration Rate 14 /min Comments: Pattern: Unlabored BP Systolic 110 mm[Hg] Comments: Patient Position: Sitting; Cuff Location: Left Arm; Cuff Size: Standard BP Diastolic 60 mm[Hg] Comments: Patient Position: Sitting; Cuff Location: Left Arm; Cuff Size: Standard Weight 0 lb Height 0 in Head Circumference 0.00 cm Results Date Description Value Details 0-Syy-296972:21 Thyroid Peroxidase 13 {IU/mL} Comments: PATIENT NOT FASTINGPERFORMED BY: [employer] Esjabp8869 [facility] [id number] (TPO) Ab (Normal) Range: 0-34 0-Akp-331792:21 D-Dimer ([id number]) Comments: PATIENT NOT FASTINGPERFORMED BY: [employer] Qtlwvj1342 [facility] [id number] D-Dimer 0.34 {mg/L_FEU} (Normal) Range: 0.00-0.49 Comments: According to the assay combination technician's published package insert, anormal (<0.50 mg/L FEU) D-dimer result in conjunction with a non-highclinical probability assessment, excludes deep vein thrombosis (D VT)and pulmonary embolism (PE) with high sensitivity. .D-dimer values increase with age and this can make VTE exclusion ofan older pop ulation difficult. To address this, the [employer], based on best available evidence and recent guidelines,recommends that clinicians use age-adjusted D-dimer thresholds inpatients gr eater than 50 years of age with: a) a low probability ofPE who do not meet all Pulmonary Embolism Rule Out Criteria, orb) in those with intermediate probability of PE. The formula for anage-adjusted D-d yessenia cut-off is age/100. For example, a 60 year oldpatient would have an age-adjusted cut-off of 0.60 mg/L FEU and an80 year old 0.80 mg/L FEU. 0-Bez-274569:21 LDH (LD) (LACTATE DEHYDROGENASE) Comments: PATIENT NOT FASTINGPERFORMED BY: CashBetSt. Mary's HospitalFlkkgk6883 [facility] [id number] ([id number]) LDH 134 [iU]/L (Normal) Range: 119-226 8-Ycx-506637:21 CBC, Platelets & Auto Diff Comments: PATIENT NOT FASTINGPERFORMED BY: 1010dataCoSt. Mary's HospitalNrzwcr6092 [facility] [id number] ([id number]) Immature Grans (Abs) 0.0 {x10E3/uL} (Normal) Range: 0.0-0.1 Immature Granulocytes 0 % (Normal) Baso (Absolute) 0.0 {x10E3/uL} (Normal) Range: 0.0-0.2 Eos (Absolute) 0.0 {x10E3/uL} (Normal) Range: 0.0-0.4 Monocytes(Absolute) 0.3 {x10E3/uL} (Normal) Range: 0.1-0.9 Lymphs (Absolute) 0.6 {x10E3/uL} (Abnormal) Range: 0.7-3.1 Neutrophils (Absolute) 4.0 {x10E3/uL} (Normal) Range: 1.4-7.0 Basos 0 % (Normal) Eos 0 % (Normal) Monocytes 7 % (Normal) Lymphs 12 % (Normal) Neutrophils 81 % (Normal) Platelets 223 {x10E3/uL} (Normal) Range: 150-379 RDW 13.5 % (Normal) Range: 12.3-15.4 MCHC 34.4 g/dL (Normal) Range: 31.5-35.7 MCH 30.8 pg (Normal) Range: 26.6-33.0 MCV 90 fL (Normal) Range: 79-97 Hematocrit 38.7 % (Normal) Range: 34.0-46.6 Hemoglobin 13.3 g/dL (Normal) Range: 11.1-15.9 RBC 4.32 {x10E6/uL} (Normal) Range: 3.77-5.28 WBC 4.9 {x10E3/uL} (Normal) Range: 3.4-10.8 2-Hjb-432450:21 GONADOTROPIN-LH ([id number]) Comments: PATIENT NOT FASTINGPERFORMED BY: LabChristine Ville [id number] [facility] [id number] LH 2.9 m[iU]/mL (Normal) Comments: Adult Female: Follicular phase 2.4 - 12.6 Ovulation phase 14.0 - 95.6 Luteal phase 1.0 - 11.4 Postmenopausal 7.7 - 58.5 2-Utb-328229:21 GONADOTROPIN-FSH (22734) Comments: PATIENT NOT FASTINGPERFORMED BY: LabCoSt. Mary's HospitalDkrvzm8725 [facility] [id number] FSH 3.7 m[iU]/mL (Normal) Comments: Adult Female: Follicular phase 3.5 - 12.5 Ovulation phase 4.7 - 21.5 Luteal phase 1.7 - 7.7 Postmenopausal 25.8 - 134.8 5-Mst-062937:19 CBC W/Diff, Automated Comments: [facility] [address] [place], [address] Absolute Lymph 0.67 {X10_3/ul} (Abnormal) Range: 0.83-4.51 Absolute Neut 4.4 {X10_3/uL} (Normal) Range: 2.0-7.7 IM GRAN % 0.200 % (Normal) Range: 0.0-0.9 Comments: IG% - Immature Granulocytes (promyelocytes, myelocytes andmetamyelocytes) > 1% indicates that a LEFT SHIFT is Present. BASO% 0.0 % (Normal) Range: 0-1 EO% 0.2 % (Normal) Range: 0-5 MONO% 5.3 % (Normal) Range: 0-10 LY% 12.6 % (Abnormal) Range: 19-41 NEUT% 81.7 % (Abnormal) Range: 47-70 MPV 10.2 fL (Normal) Range: 6.2-12.0 PLT 203 K/mm3 (Normal) Range: 150-450 RDW SD 39.7 fL (Normal) Range: 35.1-43.9 RDW CV 12.3 % (Normal) Range: 11.6-14.6 MCHC 34.2 {g/gl} (Normal) Range: 32-36 MCH 30.5 pg (Normal) Range: 27.0-32.0 MCV 89.2 fL (Normal) Range: 81-99 HCT 39.5 % (Normal) Range: 37-47 HGB 13.5 g/dL (Normal) Range: 12.0-15.0 RBC 4.43 {M/mm3} (Normal) Range: 4.2-5.4 WBC 5.3 K/mm3 (Normal) Range: 4.4-11.0 77-Qyl-019273:58 CALCIFEDIOL (51838) Comments: PERFORMED BY: LabF[facility]6370 [facility] [id number] Vitamin D, 25-Hydroxy 27.5 ng/mL (Abnormal) Range: 30.0-100.0 Comments: Vitamin D deficiency has been defined by the [place] [employer] and an Endocrine Society practice guideline as alevel of serum 25-OH vitamin D less than 20 ng/mL (1,2).The Endocrine Society went on to further define vitamin Dinsufficiency as a level between 21 and 29 ng/mL (2).1. IOM ([place] of [employer]). 2010. Dietary reference intakes for calcium and D. [place]: The National Academies Press.2. Nitza BARBOSA, Shena RICHARDSON, Miguelito PATHAK, et al. Evaluation, treatment, and prevention of vitamin D deficiency: an Endocrine Society clinical practice guideline. JCEM. 2010; 96(7):1911-30. 86-Cwn-889862:58 VITAMIN B12 AND FOLATES Comments: PERFORMED BY: [facility]6370 [facility] [id number] (03332) Folate (Folic Acid), Serum 19.1 ng/mL (Normal) Comments: A serum folate concentration of less than 3.1 ng/mL isconsidered to represent clinical deficiency. Vitamin B12 680 pg/mL (Normal) Range: 232-1245 :58 T4, FREE (THYROXINE) (88970) Comments: PERFORMED BY: [facility]6370 [facility] [id number] T4,Free(Direct) 1.64 ng/dL (Normal) Range: 0.82-1.77 :58 T3, FREE (TRIDOTHYRONINE) (76802) Comments: PERFORMED BY: [facility]6370 [facility] [id number] Triiodothyronine (T3), Free 2.9 pg/mL (Normal) Range: 2.0-4.4 :58 TSH (THYROID STIMULATING Comments: PERFORMED BY: 1010dataFresenius [facility]6370 [facility] [id number] HORMONE) (30981) TSH 0.861 {uIU/mL} (Normal) Range: 0.450-4.500 77-Sqv-122440:46 Blood Glucose , Office (12073) Blood Glucose , Office 93 (Normal) 24-Ocw-371529:16 CBC W/Diff, Auto - EPLAB Comments: At [facility] Outpatient [facility], [place] [facility] Oncologypatients receive CBC w/auto Differential ONLY. Physicianwill place an order for a manual differential or Pathologistreview at his discretion. [facility] OUTPATIENT [facility]. [address] [place] [address] INSTRUCTOR CREELER: KARLA HENRY DO PH:[phone] Hospital [facility] [address] [place], [place], [id number] ; managed by Dr. Tito Pal Absolute Lymph 0.84 {X10_3/uL} (Normal) Range: 0.83-4.51 Absolute Neut 2.8 {X10_3/uL} (Normal) Range: 2.0-7.7 BASO% 0.5 % (Normal) Range: 0-1 EO% 1.0 % (Normal) Range: 0-5 MONO% 5.7 % (Normal) Range: 0-10 LY% 21.7 % (Normal) Range: 19-41 NEUT% 71.1 % (Abnormal) Range: 47-70 MPV 7.2 fL (Normal) Range: 6.2-12.0 PLT 165 K/mm3 (Normal) Range: 150-450 RDW 13.3 % (Normal) Range: 11.6-14.6 MCHC 32.7 g/dL (Normal) Range: 32-36 MCH 28.5 pg (Normal) Range: 27.0-32.0 MCV 87.2 fL (Normal) Range: 81-99 HCT 36.0 % (Abnormal) Range: 37-47 HGB 11.8 g/dL (Abnormal) Range: 12.0-15.0 RBC 4.13 {M/mm3} (Abnormal) Range: 4.2-5.4 WBC 3.9 K/mm3 (Abnormal) Range: 4.4-11.0 :53 D-Dimer (13687) Comments: copy to Dr. Pal; PATIENT NOT FASTINGPERFORMED BY: LabUberMediarp [address] [id number] BY: [facility] [address] [id number] D-Dimer 0.43 {mg/L_FEU} (Normal) Range: 0.00-0.49 Comments: According to the assay combination technician's published package insert, anormal (<0.50 mg/L FEU) D-dimer result in conjunction with a non-highclinical probability assessment, excludes deep vein thrombosis (D VT)and pulmonary embolism (PE) with high sensitivity. .D-dimer values increase with age and this can make VTE exclusion ofan older pop ulation difficult. To address this, the [employer], based on best available evidence and recent guidelines,recommends that clinicians use age-adjusted D-dimer thresholds inpatients gr eater than 50 years of age with: a) a low probability ofPE who do not meet all Pulmonary Embolism Rule Out Criteria, orb) in those with intermediate probability of PE. The formula for anage-adjusted D-d yessenia cut-off is age/100. For example, a 60 year oldpatient would have an age-adjusted cut-off of 0.60 mg/L FEU and an80 year old 0.80 mg/L FEU. :53 Protein S Profile Comments: copy to Dr. Pal; PATIENT NOT FASTINGPERFORMED BY: [employer] [id number] BY: sMedioAtrium Health [facility] City [id number] (60096) al Information: [id number], DRAW FEE [id number] Protein S-Functional 63 % (Normal) Range: 60-145 Protein S, Free 59 % (Normal) Range: 56-124 Protein S, Total 91 % (Normal) Range: 58-150 :53 LDH (LD) (LACTATE Comments: copy to Dr. Pal; PATIENT NOT FASTINGPERFORMED BY: [employer] [id number] BY: [employer] Gudftr5256 [address] [facility] [id number] DEHYDROGENASE) (40199) LDH 132 [iU]/L (Normal) Range: 119-226 :56 URIC ACID BLOOD (81122) Comments: copy to Dr. Pal; PATIENT NOT FASTINGPERFORMED BY: [employer]70 [facility] [id number] Uric Acid, Serum 4.0 mg/dL (Normal) Range: 2.5-7.1 Comments: Therapeutic target for gout patients: <6.0 :56 CBC WITH MANUAL DIFF Comments: copy to Dr. Pal; PATIENT NOT FASTINGPERFORMED BY: [employer] Fvjrit5594 [facility] [id number] Information: [id number] (01454) Immature Grans (Abs) 0.0 {x10E3/uL} (Normal) Range: 0.0-0.1 Immature Granulocytes 0 % (Normal) Baso (Absolute) 0.0 {x10E3/uL} (Normal) Range: 0.0-0.2 Eos (Absolute) 0.1 {x10E3/uL} (Normal) Range: 0.0-0.4 Monocytes(Absolute) 0.2 {x10E3/uL} (Normal) Range: 0.1-0.9 Lymphs (Absolute) 1.1 {x10E3/uL} (Normal) Range: 0.7-3.1 Neutrophils (Absolute) 2.9 {x10E3/uL} (Normal) Range: 1.4-7.0 Basos 0 % (Normal) Eos 1 % (Normal) Monocytes 6 % (Normal) Lymphs 26 % (Normal) Neutrophils 67 % (Normal) Platelets 214 {x10E3/uL} (Normal) Range: 150-379 RDW 15.7 % (Abnormal) Range: 12.3-15.4 MCHC 33.0 g/dL (Normal) Range: 31.5-35.7 MCH 27.8 pg (Normal) Range: 26.6-33.0 MCV 84 fL (Normal) Range: 79-97 Hematocrit 34.9 % (Normal) Range: 34.0-46.6 Hemoglobin 11.5 g/dL (Normal) Range: 11.1-15.9 RBC 4.14 {x10E6/uL} (Normal) Range: 3.77-5.28 WBC 4.3 {x10E3/uL} (Normal) Range: 3.4-10.8 68-Fxg-319258:56 Metabolic Panel, Comprehensive Comments: copy to Dr. Pal; PATIENT NOT FASTINGPERFORMED BY: [facility] [id number] ([id number]) ALT (SGPT) 24 [iU]/L (Normal) Range: 0-32 AST (SGOT) 21 [iU]/L (Normal) Range: 0-40 Alkaline Phosphatase, S 63 [iU]/L (Normal) Range: 39-117 Bilirubin, Total 1.3 mg/dL (Abnormal) Range: 0.0-1.2 A/G Ratio 1.9 (Normal) Range: 1.1-2.5 Globulin, Total 2.3 g/dL (Normal) Range: 1.5-4.5 Albumin, Serum 4.3 g/dL (Normal) Range: 3.5-5.5 Protein, Total, Serum 6.6 g/dL (Normal) Range: 6.0-8.5 Calcium, Serum 9.3 mg/dL (Normal) Range: 8.7-10.2 Carbon Dioxide, Total 26 mmol/L (Normal) Range: 18-29 Chloride, Serum 98 mmol/L (Normal) Range: 97-108 Potassium, Serum 4.2 mmol/L (Normal) Range: 3.5-5.2 Sodium, Serum 138 mmol/L (Normal) Range: 134-144 BUN/Creatinine Ratio 25 (Abnormal) Range: 8-20 eGFR If Africn Am 106 mL/min/1.73 (Normal) eGFR If NonAfricn Am 92 mL/min/1.73 (Normal) Creatinine, Serum 0.83 mg/dL (Normal) Range: 0.57-1.00 BUN 21 mg/dL (Abnormal) Range: 6-20 Glucose, Serum 96 mg/dL (Normal) Range: 65-99 96-Has-238345:21 Protein S Profile Comments: PATIENT NOT FASTINGPERFORMED BY: LabCo[address] [id number] Information: [id number] (27962) Protein S-Functional 54 % (Abnormal) Range: 60-145 Comments: A deficiency of protein S (PS), either congenital or acquired,increases the risk of thromboembolism. Congenital deficiencies of PSare very rare; acquired PS deficiency is much more common. Acquireddefic iency can occur as the result of decreased PS synthesis orincreased consumption. PS synthesis can be diminished in a number ofconditions including anti-vitamin K (warfarin) therapy, vitamin Kdeficiency, severe liver disease, and malnutrition. PS levelsdecrease with normal . Levels may be spuriouslydecreased in individuals with Factor V Leiden. Levels may bedecreased in nephrotic syndrome, wom en on oral contraceptive/hormonereplacement therapy and in patients receiving chemotherapy orL-asparaginse therapy. PS consumption can occur duringdisseminated intravascular coagulation (DIC) and acute thrombosis.It has been suggested that repeat blood sampling and testing afterruling out acquired causes of deficiency should be performed beforethe patient is diagnosed with congenital Protein S deficiency. Protein S, Free 54 % (Abnormal) Range: 56-124 Comments: A deficiency of protein S (PS), either congenital or acquired,increases the risk of thromboembolism. Congenital deficiencies of PSare very rare; acquired PS deficiency is much more common. Acquireddefic iency can occur as the result of decreased PS synthesis orincreased consumption. PS synthesis can be diminished in a number ofconditions including anti-vitamin K (warfarin) therapy, vitamin Kdeficiency, severe liver disease, and malnutrition. PS levelsdecrease with normal . Levels may be spuriouslydecreased in individuals with Factor V Leiden. Levels may bedecreased in nephrotic syndrome, wom en on oral contraceptive/hormonereplacement therapy and in patients receiving chemotherapy orL-asparaginse therapy. PS consumption can occur duringdisseminated intravascular coagulation (DIC) and acute thrombosis.It has been suggested that repeat blood sampling and testing afterruling out acquired causes of deficiency should be performed beforethe patient is diagnosed with congenital Protein S deficiency. Protein S, Total 91 % (Normal) Range: 58-150 6-Knt-808243:02 Anticardiolip Ab, IgA/G/M, Comments: PATIENT NOT FASTINGPERFORMED BY: BN [facility] [address] [id number] BY: CB [facility] Rdzsaf5688 [facility] [id number] BY: TG [facility] QKG7344 [facility] [id number] Anticardiolipin Ab,IgA,Qn <9 {APL_U/mL} (Normal) Range: 0-11 Comments: Negative: <12 Indeterminate: 12 - 20 Low-Med Positive: >20 - 80 High Positive: >80 Anticardiolipin Ab,IgM,Qn 10 {MPL_U/mL} (Normal) Range: 0-12 Comments: Negative: <13 Indeterminate: 13 - 20 Low-Med Positive: >20 - 80 High Positive: >80 Anticardiolipin Ab,IgG,Qn <9 {GPL_U/mL} (Normal) Range: 0-14 Comments: Negative: <15 Indeterminate: 15 - 20 Low-Med Positive: >20 - 80 High Positive: >80 :02 Antithrombin III, Comments: PATIENT NOT FASTINGPERFORMED BY: [facility] [address] [id number] BY: [facility] Aipjbg89[address] [place] [id number] BY: TG [facility] Func/Immunol [id number] [facility] [id number] Antithrombin Antigen 98 % (Normal) Range: 75-130 Antithrombin Activity 104 % (Normal) Range: 75-135 AST (SGOT) 27 [iU]/L (Normal) Comments: PATIENT NOT FASTINGPERFORMED BY: [facility] [address] [id number] BY: [facility] Hzvznr4815 [facility] [id number] BY: TG [facility] :02 [id number] [facility] [id number] Range: 0-40 Factor II, DNA Analysis FIING2 (Normal) Comments: PATIENT NOT FASTINGPERFORMED BY: [facility] [address] [id number] BY: [facility] Oweldl6245 [facility] [id number] BY: [facility] : [id number] Malachi [facility] [id number] Comments: NEGATIVENo mutation identified. .Comment:A point mutation ([id number]) in the factor II (prothrombin) gene is thesecond most common cause of inherited thrombophilia. The incidence ofthis mutation in the [place] population is about 2% and in theAfrican [place]mese population it is approximately 0.5%. This mutation israre in the and population. Being heterozygousfor a prothrombin mutation increases the risk for developing venousthrombosis about 2 to 3 times above the general population risk. Beinghomozygous for the prothrombin gene mutation increases the relativerisk for venous thrombosis further, although it is not yet known howmuch further the risk is increased. In women heterozygous for theprothrombin gene mutation, the use of estrogen containing oralcontraceptives increases the relative risk of venous thrombosis about16 times and the risk of developing cerebral thrombosis is alsosignificantly increased. In the prothrombin gene mutationincreases risk for venous thrombosis and may increase risk forstillbirth, placental abruption, pre-eclampsia and growthrestriction. If the patient possess es two or more congenital oracquired thrombophilic risk factors, the risk for thrombosis may riseto more than the sum of the risk ratios for the individual mutations.This assay detects only the prothrom bin V99785I mutation and doesnot measure genetic abnormalities elsewhere in the genome. Otherthrombotic risk factors may be pursued through systematic clinicallaboratory analysis. These factors include the R506Q (Leiden)mutation in the Factor V gene, plasma homocysteine levels, as wellas testing for deficiencies of antithrombin III, protein C andprotein S.Genetic Counselors are available for health [facility] providersto discuss results at [phone] ([phone]). .Methodology:DNA analysis of the Factor II gene was performed by PCRamplification follow ed by restriction analysis. Thediagnostic sensitivity is >99% for both. All the tests mustbe combined with clinical information for the most accurateinterpretation. Molecular-based testing is highly accurate,but as in any laboratory test, diagnostic errors may occur. .Poort SR, et al. Blood. 1996; 88:5869-4207.Luciana EA. Circulation. 2004; 110 :e15-e18.Cesar I, et al. Arterioscler Thromb Vasc Biol. 1999;19:700-703. .Tiara Blake, Zeferino Kamara, PhDLuzmaria Rogel, Gibson Leyva, PhDZayda Figueroa, PhD . 0-Chs-353154:02 Factor V Leiden Mutation Comments: PATIENT NOT FASTINGPERFORMED BY: BN [facility] Jonorxplay5976 [facility] [id number] BY: CB [facility] Zhdjmm8537 [facility] [id number] BY: TG [facility] VPU7400 [facility] [id number] Factor V Leiden FVNEG3 (Normal) Comments: Result: Negative (no mutation found) .Factor V Leiden is a specific mutation (R506Q) in the factorV gene that is associated with an increased r isk of venousthrombosis. Factor V Leiden is more resistant toinactivation by activated protein C. As a result, factor Vpersists in the circulation leading to a mild hyper-coagulable state. The Leiden mutation accounts for 90% -95% of APC resistance. Factor V Leiden has been reported inpatients with deep vein thrombosis, pulmonary embolus,central retinal vein occlusion, cerebral sinus thrombosisand hepatic vein thrombosis. Other risk factors to beconsidered in the workup for venous thrombosis include [id number] mutation in the factor II (prothrombin) gene,protein S and C deficiency, and antithromb in deficiencies.Anticardiolipin antibody and lupus anticoagulant analysismay be appropriate for certain patients, as well ashomocysteine levels. .Contact your local [facility] for information on how to orderadditional testing if desired. .Genetic counselors are available for health care p kimberly to discuss results at [phone] ([phone]). .Methodology:DNA analysis of the Factor V gene was performed by allele-specific PCR. The diagnostic sensitivity and specificity is >99% for both.Molecular- based testing is highly accurate, but as in any laboratorytest, diagnostic errors may occur. All test results must be combin edwith clinical information for the most accurate interpretation. .References:Gurjit Amaya (1996). Clin Lab Med 16:169-186. .Tiara Blake, PhDLatosha Kamara, PhDFelipe Ospina, Gibson Thomas, PhDZayda Figueroa, PhD . Homocyst(e)ine, 8.5 umol/L Comments: PATIENT NOT FASTINGPERFORMED BY: BN [facility] Oreosfxdqs8189 [facility] [id number] BY: CB [facility] Gzoywh1225 [facility] [id number] BY: TG [facility] 4:02 Plasma (Normal) SWC2058 [facility] [id number] Range: 0.0-15.0 3-Ypd-718280:02 MTHFR Comments: PATIENT NOT FASTINGPERFORMED BY: BN [facility] Qywdhorejz3138 [address] [place] [id number] BY: CB [facility] Uweyxc4839 [address] [place] [id number] BY: TG [facility] MIF73[address] [place] [id number] MTHFR, DNA Analysis KUB277 (Normal) Comments: Result: [id number]/[id number] Two copies of the same mutation (O7765F/M4324P) identified .Interpretation: .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 The MTHFR C677T variant was not identified. This MTHFR resultis not associated with an inc reased risk of hyperhomocysteinemia,venous thrombosis, coronary artery disease, or recurrent pregnancyloss. However, hyperhomocysteinemia may also occur due to mutations inenzymes other than MTHFR that are involved in homocysteine metabolism,or arise due to acquired factors. In the evaluation of vascular andobstetric risk, consider measuring fasting homocysteine. Other riskfactors may be detected thro [facility] systematic clinical laboratoryanalysis.Genetic counselors are available to discuss these results with healthcare providers at [phone]. .Methylenetetrahydrofolate reductase (MTHFR) is a blanc enzyme in thefolate pathway and is responsible for the metabolism of homocysteine.There are two common variants in the MTHFR gene, c.655 C>T(p.Xcg649Erq), referred to as C677T, and c.1286A>C (p.Itd730Xvu),referred to as I1431S. Individuals homozygous for C677T (two copiesof the variant), have decreased activity of the MTHFR enzyme and apredisposition to hyperhomocysteinemia, particularly when deficient infolate. Hyperhomocysteinemia is a risk factor for venous thrombosisand coronary artery disease and is associated with an increa sed riskof open neural tube defects. The C677T variant does notindependently increase risk of these conditions in the absence ofhyperhomocysteinemia. The C4909C variant is not associated witheleva magui homocysteine levels unless a C677T variant is also present;however, the clinical significance of heterozygosity for both F942Ugbr D2574X is controversial. Population data suggest that these twovaria nts are not present on the same chromosome, but rare exceptionshave been reported of triple variant MTHFR genotypes (ie. homozygousfor one variant and heterozygous for the other). Homozygosity truV094Y has an estimated frequency of 10% to 15% in Caucasians and 25%in Hispanics. .Additional information: .Dietary folic acid, B6 and B12 supplementation has been suggested tolower homocysteine levels in some people. Folic acid supplementationhas been shown to reduce the o ccurrence of neural tube defects.Methodology:DNA analysis of the MTHFR gene was performed by PCRamplification followed by restriction analysis. Thediagnostic sensitivity is >99% for both. Molecular- basedtesting is highly accurate, but as in any laboratory test,rare diagnostic errors may occur. All test results must becombined with clinical information for the most accurateinterpretation. .Leander LD, David Q. Am J Epidemiol 2000; 151(9):862-877.Sandra MM, Kati JA. Arch Pathol Lab Med 2007; 131(6):872-884.Frosst P et al. Nilsa Christine 1995; 10(1):111-113.Hickey SE et al. Christine Med 2013; 15(2):153-156.Laura C et al. Obstet Gynecol 2011; 118(3):730-740.Yo B et al. Eur J Epidemiol 2013; 28(8):621-647. .Tiara Blake, PhDLatosha Kamara, PhDFelipe Ospina MS, PhDJennie Woodruff, PhD 0-Uiq-419497:02 Protein C Deficiency Comments: PATIENT NOT FASTINGPERFORMED BY: BN [facility] Nsnawjzxue5158 [facility] [id number] BY: CB [facility] Yktwvj5142 [facility] [id number] BY: TG [facility] Profile [id number] [facility] [id number] Protein C-Functional 111 % (Normal) Range: 74-151 Protein C Antigen 82 % (Normal) Range: 70-140 5-Esl-987404:02 Protein S Panel Comments: PATIENT NOT FASTINGPERFORMED BY: PANKAJ 1010dataSaint [facility] Gcxapiyret[address] [place] [id number] BY: [place] NewslabsSt. Mary's HospitalMdbpxk2703 [facility] [id number] BY: KILEY Lab[facility] YAG[address] [place] [id number] Protein S-Functional 55 % (Abnormal) Range: 60-145 Comments: A deficiency of protein S (PS), either congenital or acquired,increases the risk of thromboembolism. Congenital deficiencies of PSare very rare; acquired PS deficiency is much more common. Acquireddefic iency can occur as the result of decreased PS synthesis orincreased consumption. PS synthesis can be diminished in a number ofconditions including anti-vitamin K (warfarin) therapy, vitamin Kdeficiency, severe liver disease, and malnutrition. PS levelsdecrease with normal . Levels may be spuriouslydecreased in individuals with Factor V Leiden. Levels may bedecreased in nephrotic syndrome, wom en on oral contraceptive/hormonereplacement therapy and in patients receiving chemotherapy orL-asparaginse therapy. PS consumption can occur duringdisseminated intravascular coagulation (DIC) and acute thrombosis.It has been suggested that repeat blood sampling and testing afterruling out acquired causes of deficiency should be performed beforethe patient is diagnosed with congenital Protein S deficiency. Protein S, Free 72 % (Normal) Range: 56-124 Protein S, Total 90 % (Normal) Range: 58-150 7-Hao-357289:29 PTT (Activated Partial Comments: PERFORMED BY: [place] NewslabsSt. Mary's HospitalIbgzkr6939 [facility] [id number] Thromboplastin Time) (58096) aPTT 34 {sec} (Abnormal) Range: 24-33 Comments: This test has not been validated for monitoring unfractionated heparintherapy. aPTT-based therapeutic ranges for unfractionated heparintherapy have not been established. For general guidelines onHeparin monitoring, refer to the 1010dataSaint [facility] Directory of Services. 1-Aqs-902519:29 PT (Prothrobim Time) (04009) Comments: PERFORMED BY: [place] NewslabsSt[facility] Mary's HospitalTrtdar6005 [facility] [id number] Prothrombin Time 11.2 {sec} (Normal) Range: 9.1-12.0 INR 1.1 (Normal) Range: 0.8-1.2 Comments: Reference interval is for non-anticoagulated patients. . Suggested INR therapeutic range for Vitamin K anta gonist therapy: Standard Dose (moderate intensity therapeutic range): 2.0 - 3.0 Higher intensity therapeutic range 2.5 - 3.5 5-Vyi-440314:29 METABOLIC PANEL, COMPREHENSIVE Comments: PERFORMED BY: [facility]ideAs[facility] [id number] (13475) ALT (SGPT) 36 [iU]/L (Abnormal) Range: 0-32 AST (SGOT) 28 [iU]/L (Normal) Range: 0-40 Alkaline Phosphatase, S 115 [iU]/L (Normal) Range: 39-117 Bilirubin, Total 0.8 mg/dL (Normal) Range: 0.0-1.2 A/G Ratio 1.5 (Normal) Range: 1.1-2.5 Globulin, Total 2.8 g/dL (Normal) Range: 1.5-4.5 Albumin, Serum 4.2 g/dL (Normal) Range: 3.5-5.5 Protein, Total, Serum 7.0 g/dL (Normal) Range: 6.0-8.5 Calcium, Serum 9.5 mg/dL (Normal) Range: 8.7-10.2 Carbon Dioxide, Total 25 mmol/L (Normal) Range: 18-29 Chloride, Serum 99 mmol/L (Normal) Range: 97-108 Potassium, Serum 4.9 mmol/L (Normal) Range: 3.5-5.2 Sodium, Serum 139 mmol/L (Normal) Range: 134-144 BUN/Creatinine Ratio 32 (Abnormal) Range: 8-20 eGFR If Africn Am 131 mL/min/1.73 (Normal) eGFR If NonAfricn Am 114 mL/min/1.73 (Normal) Creatinine, Serum 0.69 mg/dL (Normal) Range: 0.57-1.00 BUN 22 mg/dL (Abnormal) Range: 6-20 Glucose, Serum 97 mg/dL (Normal) Range: 65-99 1-Iuc-194330:29 CBC W/AUTO DIFF WBC (18970) Comments: PERFORMED BY: webtideblin [place] [id number] Immature Grans (Abs) 0.0 {x10E3/uL} (Normal) Range: 0.0-0.1 Immature Granulocytes 0 % (Normal) Baso (Absolute) 0.0 {x10E3/uL} (Normal) Range: 0.0-0.2 Eos (Absolute) 0.1 {x10E3/uL} (Normal) Range: 0.0-0.4 Monocytes(Absolute) 0.3 {x10E3/uL} (Normal) Range: 0.1-0.9 Lymphs (Absolute) 1.5 {x10E3/uL} (Normal) Range: 0.7-3.1 Neutrophils (Absolute) 5.3 {x10E3/uL} (Normal) Range: 1.4-7.0 Basos 0 % (Normal) Eos 1 % (Normal) Monocytes 4 % (Normal) Lymphs 21 % (Normal) Neutrophils 74 % (Normal) Platelets 397 {x10E3/uL} (Abnormal) Range: 150-379 RDW 13.0 % (Normal) Range: 12.3-15.4 MCHC 33.7 g/dL (Normal) Range: 31.5-35.7 MCH 30.3 pg (Normal) Range: 26.6-33.0 MCV 90 fL (Normal) Range: 79-97 Hematocrit 36.5 % (Normal) Range: 34.0-46.6 Hemoglobin 12.3 g/dL (Normal) Range: 11.1-15.9 RBC 4.06 {x10E6/uL} (Normal) Range: 3.77-5.28 WBC 7.2 {x10E3/uL} (Normal) Range: 3.4-10.8 :35 D-Dimer Quantitative (DVT/PE) Comments: CRITICAL VALUE REPEATED AND VERIFIED. CALLED TO QSHUELYI91/04/15 0947 Alicja Root.RESULTS READ BACK BY MILAGROS .[facility] Qpwhmaeyue[address] [place], [place], [id number] D-DIMER QUANT 0.88 {FEU/ug/m} (Abnormal) Range: 0.27-0.49 Comments: D-Dimer ELEVATED (>0.49): Additional studies and clinicalassessments are indicated to conclude diagnosis of:Deep Vein Thrombosis (DVT) or Pulmonary Embolism (PE) :50 CBC W/Diff, Automated Comments: [facility] Tcebzuwgip[address] [place], [place], [id number] Absolute Lymph 0.85 {X10_3/ul} (Normal) Range: 0.83-4.51 Absolute Neut 2.1 {X10_3/uL} (Normal) Range: 2.0-7.7 IM GRAN % 0.300 % (Normal) Range: 0.0-0.9 Comments: IG% - Immature Granulocytes (promyelocytes, myelocytes andmetamyelocytes) > 1% indicates that a LEFT SHIFT is Present. BASO% 0.3 % (Normal) Range: 0-1 EO% 1.0 % (Normal) Range: 0-5 MONO% 6.1 % (Normal) Range: 0-10 LY% 27.1 % (Normal) Range: 19-41 NEUT% 65.2 % (Normal) Range: 47-70 MPV 10.3 fL (Normal) Range: 6.2-12.0 PLT 168 K/mm3 (Normal) Range: 150-450 RDW SD 37.7 fL (Normal) Range: 35.1-43.9 RDW CV 11.8 % (Normal) Range: 11.6-14.6 MCHC 34.2 {g/gl} (Normal) Range: 32-36 MCH 30.7 pg (Normal) Range: 27.0-32.0 MCV 89.9 fL (Normal) Range: 81-99 HCT 34.8 % (Abnormal) Range: 37-47 HGB 11.9 g/dL (Abnormal) Range: 12.0-15.0 RBC 3.87 {M/mm3} (Abnormal) Range: 4.2-5.4 WBC 3.1 K/mm3 (Abnormal) Range: 4.4-11.0 :50 EBV Acute Prof IgG / IgM Comments: [facility] (refer to report for specific site)refer to report for address and phone number INTERPRETATION Comment (Normal) Comments: EBV Interpretation ChartInterpretation EBV-IgM EA(D)-IgG VCA-IgG EBNA-IgGEBV Seronegative - - - -Early Phase + - - -Acute Primary + +or- + -InfectionConvalescence/Past - +or- + +InfectionReactivated +or- + + +Infection + Antibody Present - Antibody Ab sentPerformed at: [address] [id number] Director: Desmond Cardoza PhD, Phone: [phone] EB-NAg [id number] < 18.0 U/mL (Normal) Range: 0.0-17.9 Comments: Negative <18.0 Equivocal 18.0 - 21.9 Positive >21.9 EB-VCA [id number] < 18.0 U/mL (Normal) Range: 0.0-17.9 Comments: Negative <18.0 Equivocal 18.0 - 21.9 Positive >21.9 EB-EA IgG 97467 <9.0 U/mL (Normal) Range: 0.0-8.9 Comments: Negative < 9.0 Equivocal 9.0 - 10.9 Positive >10.9 EB-VCA [id number] < 36.0 U/mL (Normal) Range: 0.0-35.9 Comments: Negative <36.0 Equivocal 36.0 - 43.9 Positive >43.9 Plan of Care Name Dates Details Instructions Lymphopenia : Reviewed Lab Indication: Lymphopenia Lymphopenia : Reviewed Diagnostic Tests Indication: Lymphopenia Pressure in head : Reviewed Diagnostic Tests Indication: Pressure in head Body mass index (BMI) of 19.0-19.9 in adult : Eprescribed prescriptions (G8553) Indication: Body mass index (BMI) of 19.0-19.9 in adult Body mass index (BMI) of 19.0-19.9 in adult : Follow up in 2 weeks Indication: Body mass index (BMI) of 19.0-19.9 in adult Current nonsmoker (Renamed from Current non-smoker) : Eprescribed prescriptions (G8553) Indication: Current nonsmoker (Renamed from Current non-smoker) Body mass index (BMI) of 19.0-19.9 in adult : Follow up in 2 weeks Indication: Body mass index (BMI) of 19.0-19.9 in adult Current nonsmoker (Renamed from Current non-smoker) : Eprescribed prescriptions (G8553) Indication: Current nonsmoker (Renamed from Current non-smoker) Right knee pain : Eprescribed prescriptions (G8553) Indication: Right knee pain Fever : Fever: fever Indication: Fever Fever : Eprescribed prescriptions (G8553) Indication: Fever Tendonitis of other site : dequervain tenosynovitis Indication: Tendonitis of other site Tendonitis of other site : Follow up Indication: Tendonitis of other site Tendonitis of other site : FOLLOW UP NEEDED Indication: Tendonitis of other site Tendonitis of other site : Musculoskeletal Injuries Indication: Tendonitis of other site Planned Observations LIPID PANEL (99906)Indication: Abdominal aortic atherosclerosis On: 24-Qgr-16296:16 Request Anti-TPO Antibody (76981)Indication: Panic On: :40 Request CBC, PLATELETS & AUT DIFF (21987)Indication: Lymphopenia On: 1-Zzi-936938:54 Request CBC, Platelets & Auto Diff (36064)Indication: Lymphopenia On: 56-Vhm-254156:31 Request Comments: PlEASE DO Peripheral smear send to pathology PT has had lymphopenia Factor 2 (Prothrombin) Gene Mutation (51884)Indication: Pulmonary embolism on right On: 38-Osr-784658:09 Request AST (SGOT) (ASPART AMINO TRANSFERASE) (25254)Indication: Elevated liver enzymes On: 23-Xad-471372:06 Request Protein S Profile (15662)Indication: Pulmonary embolism on right On: 29-Rzf-111651:04 Request Protein C Profile (85395)Indication: Pulmonary embolism on right On: 26-Eep-308064:04 Request Homocysteine, Plasma (88434)Indication: Pulmonary embolism on right On: 92-Zvn-997465:04 Request Antiphospholipid atb (38864)Indication: Pulmonary embolism on right On: 21-Epz-497802:04 Request ANTICOAG ANTTHROMB III & ASSAY (27321)Indication: Pulmonary embolism on right On: 29-Afo-993724:04 Request ANTITHROMBIN III ACTIVTY (66254)Indication: Pulmonary embolism on right On: 30-Sqc-581396:04 Request Factor V Leiden (58826)Indication: Pulmonary embolism on right On: 41-Jej-735736:04 Request MTHFR (18274)Indication: Pulmonary embolism on right On: 74-Jqs-233082:04 Request D-Dimer (09193)Indication: Chest pain On: 4-Nov-70546:34 Request CBC WITH MANUAL DIFF (84165)Indication: Fever On: 82-Wps-21065:49 Request Comments: stat EBV Panel (89544)Indication: Fever On: :49 Request Planned Procedures Ultrasound - Abdomen Complete & On: 24-May-2018 Intent PelvisBy: Tahira Arriaga CNP CT - Brain/Head (Without On: 24-May-2018 Intent Contrast)By: Tahira Arriaga CNP Holter Monitor 24 hrsBy: Bart HARRIS, On: 17-May-2018 Intent Tahira Gonzalez Venous Doppler - RightBy: Kae ESTRADA, On: 07-Nov-2015 Intent Chong Comments: history of pulmonary embolism 04/01, off xarelto since 08/31. Travel 1 week ago, now knee and leg and thigh pain.R/O DVT Radiology - Knee - RightBy: Kae On: 07-Nov-2015 Intent Chong ESTRADA VENOUS DOPPLER LOWER EXTREMITY On: 04-Oct-2015 Intent (41962)By: Mary Rose MD Comments: please do BILATERAL LOWER EXTREMITIES Doppler Ultrasound OtherBy: Fast On: 21-Mar-2015 Intent Michelle PORTILLO Comments: stat call results- legs COMPUTED TOMOGRAPHY ANGIOGRAPHY OF On: 21-Mar-2015 Intent CHEST WITH AND WITHOUT CONTRAST (42000)By: Mary Rose MD Radiology - Wrist - RightBy: On: 17-Sep-2006 Intent Mary Rose MD Instructions Name Dates Details Body mass index (BMI) of 19.0-19.9 in adult : How to access health information online Indication: Body mass index (BMI) of 19.0-19.9 in adult Body mass index (BMI) of 19.0-19.9 in adult : How to access health information online - Detail Indication: Body mass index (BMI) of 19.0-19.9 in adult Body mass index (BMI) of 19.0-19.9 in adult : Patient Instructions Indication: Body mass index (BMI) of 19.0-19.9 in adult Current nonsmoker (Renamed from Current non-smoker) : How to access health information online Indication: Current nonsmoker (Renamed from Current non-smoker) Current nonsmoker (Renamed from Current non-smoker) : How to access health information online - Detail Indication: Current nonsmoker (Renamed from Current non-smoker) Current nonsmoker (Renamed from Current non-smoker) : Patient Instructions Indication: Current nonsmoker (Renamed from Current non-smoker) Mitral valve prolapse : How to access health information online Indication: Mitral valve prolapse Current nonsmoker (Renamed from Current non-smoker) : How to access health information online - Detail Indication: Current nonsmoker (Renamed from Current non-smoker) Current nonsmoker (Renamed from Current non-smoker) : Patient Instructions Indication: Current nonsmoker (Renamed from Current non-smoker) Right knee pain : How to access health information online Indication: Right knee pain Right knee pain : How to access health information online - Detail Indication: Right knee pain Right knee pain : Patient Instructions Indication: Right knee pain Pulmonary embolism on right : How to access health information online Indication: Pulmonary embolism on right Pulmonary embolism on right : How to access health information online - Detail Indication: Pulmonary embolism on right Pulmonary embolism on right : Patient Instructions Indication: Pulmonary embolism on right Pulmonary embolism on right : How to access health information online Indication: Pulmonary embolism on right Pulmonary embolism on right : How to access health information online - Detail Indication: Pulmonary embolism on right Pulmonary embolism on right : Patient Instructions Indication: Pulmonary embolism on right Fever : How to access health information online Indication: Fever Fever : How to access health information online - Detail Indication: Fever Fever : Patient Instructions Indication: Fever Fever : How to access health information online Indication: Fever Fever : How to access health information online - Detail Indication: Fever Fever : Patient Instructions Indication: Fever Encounters Office Visit On: 07-Jun-2018 13:23 Encounter Reason: Follow up tests - Diagnostic tests include CT scan (brain 05/28/18), other (labs 05/24 & 05/31) and ultrasound (abdomen). Current symptoms include anxiety and other (i keep feeling a weird sensation in End: 07-Jun-2018 14:19 my breats its almost like theyre filling with milk its a tingling feeling or something and i get itchy in armpits).Encounter Diagnosis: Current nonsmoker (Renamed from Current non-smoker), Body mass index (BMI) of 19.0-19.9 in adult, Panic, Pressure in head, Insomnia, Lymphopenia, Anxiety, Bilateral nephrolithiasis, Dizzy spells [facility] Order On: 31-May-2018 9:15 Encounter Diagnosis: Abdominal aortic atherosclerosis End: 31-May-2018 9:20 [facility] Visit On: 24-May-2018 8:44 Encounter Reason: Follow up acute care visit - The patient feels the same. Note for Follow up acute care visit: Feeling of becker on top of head or tingling on top of head or pressure then feel an adrenaline becker like be End: 24-May-2018 9:42 ing nervous, then fatigued and foggy, cant concentrate. If lays down cant relax. No blurred vision but cant focus brain.No slurred speech, no change in gait, family notices she is not herself. This occu rs unpredicatable and happens in more last couple of weeks. No cough, no vomiting, no diarrhea. Is eating but loss of appetite. No pain only pressure on top of head.Encounter Diagnosis: Current nonsmoker (Renamed from Current non-smoker), Body mass index (BMI) of 19.0-19.9 in adult, Lymphopenia, Pressure in head, Anxiety, Panic [facility] Order On: 21-May-2018 10:50 Encounter Diagnosis: Lymphopenia End: 21-May-2018 10:54 [facility] Annotation/Addendum On: 17-May-2018 13:18 Encounter Diagnosis: Lymphopenia End: 17-May-2018 14:32 [facility] Office Visit On: 17-May-2018 10:01 Encounter Reason: Follow up ER - Reason for hospitalization note: (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 Note for Follow up ER: 2 weeks ago felt like going to faint and felt dizzi. Went to ER at [facility] had EKG and chest, nor End: 17-May-2018 11:18 mal labs, but went home and felt like adrenal becker and dizzi and nausea. Several week ago had bilateral low back pain, went to chiropracter, took xrays and lower disc inflammation, has been getting reha b and trying to realign spine. Feeling like bundle of nerves, foggy and anxiouss in head and adrenalin becker like cold sweat and worry. Unable to sleep cant shut mind off. Has lost weight not eating. Las t period 2 weeks ago. Takes Emergenc C, took tylenol pm to sleep.Was tested for UTI at urgent care but negative.Sometimes from sitting to standing gets fuzzy feeling in headEncounter Diagnosis: Current nonsmoker (Renamed from Current non-smoker), Body mass index (BMI) of 19.0-19.9 in adult, Mitral valve prolapse, Panic, Palpitations, Insomnia [facility] Order On: 15-Nov-2015 13:39 Encounter Diagnosis: Protein S deficiency End: 15-Nov-2015 13:47 [facility] Order On: 15-Nov-2015 13:25 Encounter Diagnosis: Protein S deficiency, Pulmonary embolism on right End: 15-Nov-2015 13:27 [facility] Phone Encounter On: 08-Nov-2015 15:56 Encounter Diagnosis: Unspecified Diagnosis End: 08-Nov-2015 16:03 [facility] Office Visit On: 07-Nov-2015 9:25 Encounter Reason: Knee Pain - The injury involved the right knee. This occurred 3 week(s) ago (off and on for a couple o years but worse over last 2/3 weeks). Symptoms include knee pain and stiffness (standing is better. End: 07-Nov-2015 16:28 ??Hurts more with sitting/bending. ??I have been running more. ??The location of the knee pain depends on my psoition but worse with sitting and like driving. ??It actually feels fine when I run, but t hen it hurts after. ??When sitting/driving, pain is front and abck and feels like it is stretching. ??More of an ache. ??Been treating at home with ice. ??No NSAIDS. ??No stretching. ??No heat. ??No wra ps/brace. ??Has used essential oils. ?? Has not seen any ortho specialists in the past.), while symptoms do not include swelling, warmth, redness, instability, difficulty bearing weight or audible pop a t the time of injury. The patient describes symptoms as severe.Encounter Diagnosis: Right knee pain [facility] Phone Encounter On: 12-Oct-2015 7:56 Encounter Diagnosis: Protein S deficiency End: 12-Oct-2015 8:14 [facility] Phone Encounter On: 04-Oct-2015 15:49 Encounter Diagnosis: Pulmonary embolism on right End: 04-Oct-2015 15:51 [facility] Phone Encounter On: 04-Oct-2015 10:08 Encounter Diagnosis: Abnormal blood finding End: 04-Oct-2015 10:12 [facility] Office Visit On: 24-Sep-2015 14:11 Encounter Reason: Follow up for chronic medical issues - The patient feels well with no complaints. Patient has been compliant with instructions. Patient sleeps 7 hours per night. Impact of disease: emotional impact-mild End: 24-Sep-2015 14:57 . Nutrition: balanced diet and supplemental vitamins. The medical issues the patient is following up for include other (PE).Encounter Diagnosis: Pulmonary embolism on right, Elevated liver enzymes [facility] Office Visit On: 16-Apr-2015 14:32 Encounter Reason: Follow up acute care visit - The patient feeling better since last seen and improving. Patient has been compliant with instructions. Current medication use: no side effects, compliant with dosing regime End: 16-Apr-2015 15:11 n and considered effective by patient. Patient sleeps 7 hours per night. Impact of disease: emotional impact-mild. Nutrition: balanced diet and supplemental vitamins. The medical issues the patient is following up for include other (pneumonia, PE ). Encounter Diagnosis: Pulmonary embolism on right, Current nonsmoker (Renamed from Current non-smoker), Elevated liver enzymes [facility] Visit On: 21-Mar-2015 12:28 Encounter Reason: Follow up acute care visit - The patient worsening. Patient has been compliant with instructions. Current medication use: no side effects and compliant with dosing regimen. Patient sleeps 7 hours per ni End: 25-Mar-2015 20:31 ght. Impact of disease: emotional impact-mild. Nutrition: balanced diet and supplemental vitamins. The medical issues the patient is following up for include other (cough and chest tightness, patient st arted with fever 14 days ago, and fever lasted 9 days, remained with ??dry hacky cough, chest tightness, sharp pain with inhalation and exhalation, started on Augmentin last Thursday and fever went away, but cough and chest pain continued. Had Ddimer and was positive, and ct chest showed PE right middle lobe pulmonary arterial branches, dense consolidation in the right middle lobe with small right pluer al effusion. ??). Note for Follow up acute care visit: - two days after I saw still had fever - saw Bonezzi started on augmentin and the next day fever gone- - saw bonezzi on thursday - then thursday deve loped pleuritic ??chest pain- delivered in may and has been - - called [facility] thursday with the chest sx - they ordered ddimer positive and now had ct of chest - with pulmonary ??embolism- ??she not having the daytime fever or chills but having drenching night sweats - not taking temp them- never had blood clot before -- did get sob this am ??with the chest pains if takes ibuprofen takes pain away then all goes away- dad had blood clot in lung after colosnocopy Encounter Diagnosis: Pulmonary embolism on right, Current nonsmoker (Renamed from Current non-smoker), Fever [facility] Phone Encounter On: 21-Mar-2015 9:54 Encounter Diagnosis: Elevated d-dimer End: 21-Mar-2015 9:59 [facility] Order On: 21-Mar-2015 7:34 Encounter Diagnosis: Chest pain End: 21-Mar-2015 7:37 [facility] Office Visit On: 16-Mar-2015 7:11 Encounter Reason: Follow up acute care visit - The patient has decreased energy level and worsening. Patient has been compliant with instructions. Patient sleeps 7 hours per night. Impact of disease: emotional impact-mil End: 16-Mar-2015 7:40 d. Nutrition: balanced diet and supplemental vitamins. The medical issues the patient is following up for include other (cough/fever ).Encounter Diagnosis: Fever [facility] Office Visit On: 14-Mar-2015 8:32 Encounter Reason: Cold Symptoms - Symptoms include dry cough, while symptoms do not include nasal congestion, runny nose, sore throat, facial pressure, facial pain or headache. Onset was sudden 1 week(s) ago. The symptom End: 14-Mar-2015 9:04 s occur constantly. The patient describes this as improving. Associated symptoms include fever and chills, while associated symptoms do not include ear pain, wheezing, shortness of breath, nausea, vomit ing or diarrhea. The patient is not currently being treated for this problem. Note for Cold symptoms: The fever has been persistant and highest of 102.3- cough and headaches alot of fatigue - headache s come and go and only 2 days of the week- no ear ear sx - couple days before had sore throat- no abd pain vomit diarrhea - no uti sx - yesterday 100 pretty consistently- without anything- sop trending down - getting sweats- works at [employer] Encounter Diagnosis: Fever, Cough [facility] Office Visit On: 26-Sep-2010 6:58 Encounter Diagnosis: Foot pain (729.5) End: 26-Sep-2010 7:14 [facility] Office Visit On: 06-May-2010 7:46 Encounter Diagnosis: Hand Pain (719.44) End: 06-May-2010 21:33 [facility] Office Visit On: 15-Mar-2008 11:55 Encounter Reason: Rectal bleeding - The onset of the rectal bleeding has been acute and has been occurring in an intermittent pattern for 2 weeks. The course has been recurrent. The rectal bleeding is characterized as bl End: 15-Mar-2008 13:26 oody toilet bowl water. The symptoms have been associated with family history of colon cancer (maternal uncle, colon cancer) and painful bowel movements (tissue around rectum is sore), while the symptom s have not been associated with abdominal pain ,change in bowel habits ,hard stools ,heartburn ,hematemesis or nausea. Encounter Diagnosis: Rectal Bleeding(569.3) [facility] Office Visit On: 17-Sep-2006 14:09 Encounter Reason: Wrist Pain - The onset of the wrist pain has been variable and has been occurring in a persistent pattern for 6 months. The course has been constant. The wrist pain is mild to moderate. The wrist pain i End: 17-Sep-2006 14:48 s characterized as a burning sensation. The wrist pain is described as being located in the radial aspect of wrist. Aggravating factors include any movement and work duties. Relieving factors include re st. Associated features include: painful ROM ,difficulty opening doors ,difficulty turning keys in the ignition and difficulty with fine motor skills. Encounter Diagnosis: Tendonitis, Unspecified Site (726.90) [facility] Historical Summary On: 17-Jul-2006 8:57 [facility] End: 17-Jul-2006 9:02 Office Visit On: 13-Jul-2006 15:54 Encounter Reason: Wrist Pain - The onset of the wrist pain has been gradual following no specific incident and has been occurring in a persistent pattern for 5 months. The course has been gradually worsening (Since being End: 13-Jul-2006 21:02 back to work). The wrist pain is mild to moderate. The wrist pain is characterized as a sharp stabbing (Right wrist radiating to thumb). The wrist pain is described as being located in the radial aspec t of wrist. Aggravating factors include physical activity. Relieving factors include rest and medication (ibuprofen). Associated features include: muscle stiffness (In am). Encounter Diagnosis: Tendonitis, Unspecified Site (726.90) [facility] Office Visit On: 14-Apr-2006 15:13 Encounter Reason: Wrist Pain - The onset of the wrist pain has been gradual and has been occurring in an intermittent pattern for 3 weeks. The course has been gradually worsening. The wrist pain is mild to moderate. The End: 14-Apr-2006 15:58 wrist pain is characterized as a dull aching (worse when wakes up). The wrist pain is described as being located in the radial aspect of wrist. Aggravating factors include any movement. There are no rel ieving factors. Associated features include: painful ROM and difficulty with lifting. Encounter Diagnosis: Tendonitis, Unspecified Site (726.90) [facility]
--- OUTSIDE RECORDS SUMMARY | 2018-08-09 03:53 | XMS RPT_ITS | Continuity of Care Document ---
:1980 Author Organization [facility] Address [facility] [address] Phone Care Team Providers Name Role Phone Nicolasa Vasquez DO Unavailable Physical Therapy, [facility] Unavailable Tasha Javed Unavailable Unavailable Tahira Arriaga CNP Unavailable Loki Hinojosa Unavailable Unavailable Unavailable Unavailable Problems Name Dates Details Abnormal blood finding (R79.9, 790.99) Status: Active Abortions/Miscarriages Comments: Spontaneous , 1, 1st trimester Status: Active Body mass index (BMI) of 19.0-19.9 in adult (Z68.1, V85.1) Status: Active Current nonsmoker (Renamed from Current non-smoker) (Z78.9, V49.89) Status: Active Deliveries (Parity) Comments: Term, 5 Status: Active Elevated liver enzymes (R74.8, 790.5) Comments: better nowr/t tylenol, had been using pretty consistently with fever, cough and pneumonia Status: Active Insomnia (G47.00, 780.52) Status: Active 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 will do hypercoag labs after off xarelto for 2 weeks.right middle lobe pulmonary arterial branches 15. she was sick and with pneumonia at [...] 12 days.HAs protein S deficiency and seeing [facility] next week.Doppler 3 weeks ago negative.[place] car ride 10 hours, 1week ago and took breaks, pain is worse after th atNo Chest pain or shortness of breath., no fever or pleuritic chest pain now.No pain medications, tried ice not helps with pain. No redness/swelling Status: Active Unspecified Diagnosis Status: Active Medications Name Dates Details ANUSOL-HC, 25MG (Rectal Suppository) 1 1/2 (one [...] End : 15-Mar-2008 Discontinued Comments:home supply pre vitamin End : 15-Mar-2008 Discontinued PRENATE ELITE, 36-594-386JJ-MCG-MCG (PO Tab) 1 qd for 0 days [...] (M79.643, 729.5) Status: Inactive as of 16-Mar-2015 Rectal bleeding (K62.5, 569.3) Comments: suspect internal hemorrhoid Status: Resolved as of 28-Nov-2008 Tendonitis of other site (M77.8, 727.09) Comments: de Quervain Tenosynovitis.Right- Wear brace if it helps. Continue anti-inflam. Status: Resolved as of 28-Nov-2008 Procedures Procedure Dates Details Oophorectomy; Unilateral Completed Comments: 1996 Date Value Details 20-Feb-2016 PT D/C of Non Returning Pt (1) Result: Comments: See Note; NOTES: [facility] Physical Therapy [facility] [address] [place] [address]. [address] [place] [address] Fax REHABILITATION SERVICES DISCHA RGE SUMMARY MR#: [id number] Acct: [id number] Name: ESPERANZA IGLESIAS Rep #: [id number] : 1980 35 From: Tonia Medina DPT Referring DrGricelda: Michelle Thacker DO Status: REG RCR Insurance: SELF PAY INSURANCE HP - Discharge Summary (1) - Patient Information ESPERANZA IGLESIAS was seen in my office for [...] - PT Result: Comments: See Note; NOTES: [facility] Physical Therapy [facility] [address] [place] [address] Rd. [address] [place] [address] Fax REHABILITATION SE RVICES INITIAL EVALUATION MR#: [id number] Acct: [id number] Name: ESPERANZA IGLESIAS Rep #: [id number] : 1980 35 From: Yisel Sidhu Referring Dr.: Chong Pal Status: REG RCR Insurance: SELF PAY INSURANCE Patient's Visit Information ESPERANZA IGLESIAS is a 35 year old F [...] to be FAXED BACK to us at [phone] for Medicare purposes. Plea se let me know if there are questions or concerns regarding this plan of care. Physician Signature: Date: <Electronically signed by Yisel Sidhu > 11/20/15 1521 CC: Chong Pal Signed For Medicare only, by signing this I certify the plan of care. Physicians Signature Date 16-Nov-2015 Venous Duplex Lower Extremity Result: Comments: See Note; NOTES: [facility] Cardiovascular Services [address] [place] [address] Venous Duplex US, Unilateral 11/15/15 1311 MR#: [id number] Acct: [id number] Name: ESPERANZA IGLESIAS Rep #: [id number] : 1980 35 From: Constantine Justin MD [...] Dictated: 11/15/15 1311 Date Transcribed: 11/16/15 0242 Toolmaker Helper: Signed 07-Nov-2015 Knee 4 or More Views Result: Comments: See Note; NOTES: [facility] Imaging Services [address] [place] [address] Verdana 4d Knee 4 or More Views MR#: [id number] Acct: [id number] Name: ESPERANZA IGLESIAS Rep #: [id number] : 1980 F 35 From: David Clark MD PCP: Mary Rose MD Status: REG CLI Study: Knee 4 or More Views Date of Exam: 11/07/15 Exam# [id number] Ordering Dr: Chong Pal STUDY: X-RAY - [...] examination of the knee. Electronically Signed: David Clakr MD, FACR at 16:53 EDT Tel , Service support [phone], RAD/Knee 4 or More Views IMPRESSION: Small joint effusion. Otherwise normal x-ray examination of the knee. Electronically Signed: David Clark MD, FACR at 16:53 EDT , Service support [phone], CC: Mary Rose MD; Chong Pal Toolmaker Helper: Signed 19-Oct-2015 Venous Duplex Lower Extremity Result: Comments: See Note; NOTES: [facility] Cardiovascular Services [address] [place] [address] Venous Duplex US - Lorenzo Extrem 10/19/15 1316 MR#: [id number] Acct: [id number] Name: ESPERANZA IGLESIAS Rep #: [id number] : 1980 35 From: Constantine Justin MD [...] Date Dictated: 10/19/15 1316 Date Transcribed: 10/19/15 1355 Toolmaker Helper: Signed 11-Apr-2015 Chest PA and Lateral Result: Comments: See Note; NOTES: [facility] Imaging Services [address] [place] [address] Verdana 4d Chest PA and Lateral MR#: [id number] Acct: [id number] Name: ESPERANZA IGLESIAS Rep #: [id number] : 1980 F 34 From: Young Garibay PCP: Mary Rose MD Status: REG CLI Study: Chest PA and Lateral Date of Exam: 04/11/15 Exam# [id number] Ordering Dr: Hernandez Hansen MD STUDY: X-RAY [...] DO at 23:48 EST , Service support [phone], RAD/Chest PA and Lateral IMPRESSION: No acute cardiopulmonary disease. Electronically Signed: Yuong Garibay DO at 23:48 EST T el [phone], Service support [phone], CC: Mary Rose MD; Hernandez Hansen MD Toolmaker Helper: Signed 21-Mar-2015 CTA Chest W/WO Contrast Result: Comments: See Note; NOTES: [facility] Imaging Services [address] [place] [address] Verdana 4d CTA Chest W/WO Contrast MR#: [id number] Acct: [id number] Name: ESPERANZA BOYER Rep #: [id number] : 1980 F 34 From: Mohan Bray MD PCP: Mary Rose MD Status: REG CLI Study: CTA Chest W/WO Contrast Date of Exam: 03/21/15 Exam# [id number] Ordering Dr: Mary Sepulveda MD STUDY: CTA [...] Mohan Bray MD at 11:52 EST Tel [phone], Service support [phone], CC: Mary Rose MD Toolmaker Helper: Signed Family History Unknown Family Member Name Dates Details Father Comments: blood clot in lung after leg surgery Status: Active First Degree Relatives Comments: Colon & liver cancer - Uncle Status: Active Social History Name Dates Details Current Work/Study Status Comments: 2 days a week @ [employer] Status: Active Exercise History Comments: [place] 1/2 hr QOD Status: Active Living Situation Comments: , Lives with spouse Status: Active 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 Status: Active Smoking Status Name Dates Details Never smoker Vital Signs Date Test Result Details 11-Ofr-978907:03 Comments: orthos:sitting- bp 112/70 pulse 98standing- bp [...] 0.00 cm Results Date Description Value Details 5-Dei-578025:19 CBC W/Diff, Automated Comments: [facility] [address] [place], [address] Absolute Lymph 0.67 {X10_3/ul} (Abnormal) [...] 4.2-5.4 WBC 5.3 K/mm3 (Normal) Range: 4.4-11.0 95-Akt-262949:58 CALCIFEDIOL (94971) Comments: PERFORMED BY: Exhibialin6370 [facility] [id number] Vitamin D, 25-Hydroxy 27.5 ng/mL (Abnormal) Range: 30.0-100.0 Comments: Vitamin D deficiency has been defined by the [place] ofMedicine and an Endocrine Society practice guideline as alevel of serum 25-OH vitamin D less than 20 ng/mL (1,2).The Endocrine Society went on to further define vitamin Dinsufficiency as a level between 21 and 29 ng/mL (2).1. IOM ([place] of Medicine). 2010. Dietary reference intakes for calcium and D. [place]: The National Academies Press.2. Nitza MF, Shena NC, Miguelito PATHAK, et al. Evaluation, treatment, and prevention of vitamin D deficiency: an Endocrine Society clinical practice guideline. JCEM. 2010; 96(7):1911-30. 35-Qrq-639943:58 VITAMIN B12 AND FOLATES Comments: PERFORMED BY: SweetSlapMeadowview Psychiatric HospitalXuucax6656 [facility] [id number] (78980) Folate (Folic Acid), Serum 19.1 ng/mL (Normal) Comments: A serum folate concentration of less than 3.1 ng/mL isconsidered to represent clinical deficiency. Vitamin B12 680 pg/mL (Normal) Range: 232-1245 22-Csd-469732:58 T4, FREE (THYROXINE) (66371) Comments: PERFORMED BY: [employer] Mmhfga9854 [facility] [id number] T4,Free(Direct) 1.64 ng/dL (Normal) Range: 0.82-1.77 25-Osj-232444:58 T3, FREE (TRIDOTHYRONINE) (92427) Comments: PERFORMED BY: [employer] Hkmqxl0510 [facility] [id number] Triiodothyronine (T3), Free 2.9 pg/mL (Normal) Range: 2.0-4.4 19-Spa-548914:58 TSH (THYROID STIMULATING Comments: PERFORMED BY: [facility] Wyxqws4438 [facility] [id number] HORMONE) (24173) TSH 0.861 {uIU/mL} (Normal) Range: 0.450-4.500 27-Soy-655533:46 Blood Glucose , Office (07999) Blood Glucose , Office 93 (Normal) 55-Gqx-870317:16 CBC W/Diff, Auto - EPLAB Comments: At [facility] Outpatient [facility] Kristen Medical Oncologypatients receive CBC w/auto Differential ONLY. Physicianwill place an order for a manual differential or Pathologistreview at his discretion. [facility] OUTPATIENT [facility]. [address] [place] [address] AMBULATORY CARE COORDINATOR: KARLA HENRY DO PH:[phone] [address] [place], [address] ; managed by Dr[address] Tito Pal Absolute [...] 4.2-5.4 WBC 3.9 K/mm3 (Abnormal) Range: 4.4-11.0 74-Rxm-109623:53 D-Dimer (09871) Comments: copy to Dr. Pal; PATIENT NOT FASTINGPERFORMED BY: [facility] [address] [id number] BY: [facility] [address] [id number] D-Dimer 0.43 {mg/L_FEU} (Normal) Range: 0.00-0.49 Comments: According to the assay improvement coordinator's published package insert, anormal (<0.50 mg/L FEU) D-dimer result in conjunction with a non-highclinical probability assessment, excludes deep vein thrombosis (D VT)and pulmonary embolism (PE) with high sensitivity. .D-dimer values increase with age and this can make VTE exclusion ofan older pop ulation difficult. To address this, the [place] [employer], based on best available evidence [...] to Dr. Pal; PATIENT NOT FASTINGPERFORMED BY: [employer] [id number] BY: [facility] Zvbltz2773 [facility] [id number] (39634) al Information: [id number], DRAW FEE 139270 Protein S-Functional 63 % (Normal) Range: 60-145 Protein S, Free 59 % (Normal) Range: 56-124 Protein S, Total 91 % (Normal) Range: 58-150 :53 LDH (LD) (LACTATE Comments: copy to Dr. Pal; PATIENT NOT FASTINGPERFORMED BY: [employer] [id number] BY: [employer] Dnldgv4388 [facility] [id number] DEHYDROGENASE) (55139) LDH 132 [iU]/L (Normal) Range: 119-226 :56 URIC ACID BLOOD (10324) Comments: copy to Dr. Pal; PATIENT NOT FASTINGPERFORMED BY: [employer] Vferxd5533 [facility] [id number] Uric Acid, Serum 4.0 mg/dL (Normal) Range: 2.5-7.1 Comments: Therapeutic target for gout patients: <6.0 :56 CBC WITH MANUAL DIFF Comments: copy to Dr. Pal; PATIENT NOT FASTINGPERFORMED BY: [employer] Lclwiv7176 [facility] [id number] Information: [id number] (10347) Immature Grans (Abs) 0.0 {x10E3/uL} (Normal) Range: [...] 3.77-5.28 WBC 4.3 {x10E3/uL} (Normal) Range: 3.4-10.8 :56 Metabolic Panel, Comprehensive Comments: copy to Dr. Pal; PATIENT NOT FASTINGPERFORMED BY: LabCoMeadowview Psychiatric HospitalRljinw5089 [facility] [id number] (76329) ALT (SGPT) 24 [iU]/L (Normal) Range: 0-32 [...] Glucose, Serum 96 mg/dL (Normal) Range: 65-99 54-Qyn-399114:21 Protein S Profile Comments: PATIENT NOT FASTINGPERFORMED BY: LabCo[address] [id number] Information: [id number],Z43722 (46546) Protein S-Functional 54 % (Abnormal) Range: 60-145 [...] S, Total 91 % (Normal) Range: 58-150 5-Lbd-685946:02 Anticardiolip Ab, IgA/G/M, Comments: PATIENT NOT FASTINGPERFORMED BY: Hara[address] [id number] BY: CB LabCatch.comMeadowview Psychiatric HospitalEcwzye3163 [facility] [id number] BY: [facility] n HBG3269 [facility] [id number] Anticardiolipin Ab,IgA,Qn <9 {APL_U/mL} (Normal) Range: 0-11 [...] Positive: >20 - 80 High Positive: >80 4-Wbc-469134:02 Antithrombin III, Comments: PATIENT NOT FASTINGPERFORMED BY: PetroFeed[address] [id number] BY: [facility] Dukirl[address]én[address] Roadbl[address] [place] [id number] BY: TG [facility] Func/Immunol MYT0917 Malachi AbrahamFAIRMOUNT BEHAV[facility] [id number] Antithrombin Antigen 98 % (Normal) Range: 75-130 Antithrombin Activity 104 % (Normal) Range: 75-135 AST (SGOT) 27 [iU]/L (Normal) Comments: PATIENT NOT FASTINGPERFORMED BY: [facility] [address]zpouko[address] [id number] BY: CB [facility] Jiantd7621 [facility] [id number] BY: TG [facility] : VDH5772 Malachi AbrahamFAIRMOUNT BEHAVIOR[facility] [id number] Range: 0-40 Factor II, DNA Analysis FIING2 (Normal) Comments: PATIENT NOT FASTINGPERFORMED BY: [facility] [address] [id number] BY: [facility] Lsulvl9946 [facility] [id number] BY: TG [facility] : HTU1430 Malachi AbrahamFAIRMOUNT BEHAVIOR[facility] [id number] Comments: NEGATIVENo mutation identified. .Comment:A point mutation (S91779R) in the factor II (prothrombin) gene is thesecond most common cause of inherited thrombophilia. The incidence ofthis mutation in the [place] population is about 2% and in theLexington Va Medical Centeran [place] population it is approximately 0.5%. This mutation [...] mutations.This assay detects only the prothrom bin L59008A mutation and doesnot measure genetic abnormalities elsewhere in the genome. Otherthrombotic risk factors may be pursued through systematic clinicallaboratory analysis. These factors include the R506Q (Leiden)mutation in the Factor V gene, plasma homocysteine levels, as wellas testing for deficiencies of antithrombin III, protein C andprotein S.Genetic Counselors are available for health [facility] care providersto discuss results at [phone]). .Methodology:DNA analysis of the Factor II gene was performed by PCRamplification follow ed by restriction analysis. Thediagnostic sensitivity is >99% for both. All the tests mustbe combined with clinical information for the most accurateinterpretation. Molecular-based testing is highly accurate,but as in any laboratory test, diagnostic errors may occur. .Poort SR, et al. Blood. 1996; 88:7506-6389.Luciana EA. Circulation. 2004; 110 :e15-e18.Cesar I, et al. Arterioscler Thromb Vasc Biol. 1999;19:700-703. .Tiara Blake, Nurys Meza, Gibson Leyva, PhDZayda Figueroa, PhD . 1-Xzu-739840:02 Factor V Leiden Mutation Comments: PATIENT NOT FASTINGPERFORMED BY: BN [facility] Qbgidlsmtx7718 [facility] [id number] BY: CB [facility] Pbclnd9711 [facility] [id number] BY: TG [facility] AWD2168 [facility] [id number] Factor V Leiden FVNEG3 (Normal) Comments: Result: [...] in the workup for venous thrombosis include qeyQ47363T mutation in the factor II (prothrombin) gene,protein S and C deficiency, and antithromb in deficiencies.Anticardiolipin antibody and lupus anticoagulant analysismay be appropriate for certain patients, as well ashomocysteine levels. .Contact your local [facility] for information on how to orderadditional testing if desired. .Genetic counselors are available for health care kimberly to discuss results at [phone] ([phone]). .Methodology:DNA analysis of the Factor V gene was performed by allele-specific PCR. The diagnostic sensitivity and specificity is >99% for both.Molecular- based testing is highly accurate, but as in any laboratorytest, diagnostic errors may occur. All test results must be combin edwith clinical information for the most accurate interpretation. .References:Gurjit Amaya (1996). Clin Lab Med 16:169-186. .Tiara Blake, PhDLatosha Kamara, PhDLuzmaria Rogel, PhDBritney Cordova, PhDMily Thomas, PhDZayda Figueroa, PhD . Homocyst(e)ine, 8.5 umol/L Comments: PATIENT NOT FASTINGPERFORMED BY: [facility] [address] [id number] BY: [employer] Fvtkgx5720 [facility] [id number] BY: [facility] 4:02 Plasma (Normal) WKI3697 TW [facility] [id number] Range: 0.0-15.0 7-Ayf-211625:02 MTHFR Comments: PATIENT NOT FASTINGPERFORMED BY: [employer] [address]iggpljazg[address] [id number] BY: [facility] Chance Medhat Estr[address] [place] [id number] BY: KILEY [facility] GMW8[address] DriveRTP [place] [id number] MTHFR, DNA Analysis WSD682 (Normal) Comments: Result: T1548B/N2933H Two copies of the same mutation (X2301U/F0957Q) identified .Interpretation: .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 The MTHFR C677T variant was [...] homocysteine. Other riskfactors may be detected thro [facility] systematic clinical laboratoryanalysis.Genetic counselors are available to discuss these results with healthcare providers at [phone]. .Methylenetetrahydrofolate reductase (MTHFR) is a blanc enzyme in thefolate pathway and is responsible for the metabolism of homocysteine.There are two common variants in the MTHFR gene, c.655 C>T(p.Oeq209Ocs), referred to as C677T, and c.1286A>C (p.Zfy137Tpb),referred to as P0367N. Individuals homozygous for C677T (two copiesof the variant), have decreased activity of the MTHFR enzyme and apredisposition to hyperhomocysteinemia, particularly when deficient infolate. Hyperhomocysteinemia is a risk factor for venous thrombosisand coronary artery disease and is associated with an increa sed riskof open neural tube defects. The C677T variant does notindependently increase risk of these conditions in the absence ofhyperhomocysteinemia. The I1585V variant is not associated witheleva magui homocysteine levels unless a C677T variant is also present;however, the clinical significance of heterozygosity for both Q028Nszy U9842F is controversial. Population data suggest that these twovaria nts are not present on the same chromosome, but rare exceptionshave been reported of triple variant MTHFR genotypes (ie. homozygousfor one variant and heterozygous for the other). Homozygosity qzuC404I has an estimated frequency of 10% to [...] Kati JA. Arch Pathol Lab Med 2007; 131(6):872-884.Ashwinsst P et al. Nilsa Christine 1995; 10(1):111-113.Hickey SE et al. Christine Med 2013; 15(2):153-156.Guille C et al. Obstet Gynecol 2011; 118(3):730-740.Yo B et al. Eur J Epidemiol 2013; 28(8):621-647. .Tiara Blake, PhDLatosha Kamara, PhDLuzmaria Rogel, PhDBritney Cordova, MS, PhDMily Thomas, PhDZayda Figueroa, PhD 9-Ecb-825706:02 Protein C Deficiency Comments: PATIENT NOT FASTINGPERFORMED BY: PetroFeedton1447 [facility] [id number] BY: [employer] Qtogfw0073 [place] F[facility]iumHarris [facility] Hospital [id number] BY: epicurio Profile CYL9932 [facility] [id number] Protein C-Functional 111 % (Normal) Range: 74-151 Protein C Antigen 82 % (Normal) Range: 70-140 2-Smn-586485:02 Protein S Panel Comments: PATIENT NOT FASTINGPERFORMED BY: [employer] Porscgkmpa1188 [facility] [id number] BY: [employer] Hriruj8745 [address] FandiumHarris Regional Hospital [id number] BY: KILEY [employer] [address]EL[address] AbrahamTP [place] [id number] Protein S-Functional 55 % (Abnormal) Range: 60-145 [...] S, Total 90 % (Normal) Range: 58-150 6-Dqq-828453:29 PTT (Activated Partial Comments: PERFORMED BY: [place] [facility] CorporationT[facility] City Regional [facility] Care CorporationAqtonm2269 [address] [facility] [id number] Thromboplastin Time) (54659) aPTT 34 {sec} (Abnormal) Range: 24-33 Comments: This test has not been validated for monitoring unfractionated heparintherapy. aPTT-based therapeutic ranges for unfractionated heparintherapy have not been established. For general guidelines onHeparin monitoring, refer to the [employer] Directory of Services. 0-Aad-892171:29 PT (Prothrobim Time) (36145) Comments: PERFORMED BY: [place] Geekatoo6370 Wan Shidao managementHarris Regional Hospital [id number] Prothrombin Time 11.2 {sec} (Normal) Range: 9.1-12.0 INR 1.1 (Normal) Range: 0.8-1.2 Comments: Reference interval is for non-anticoagulated patients. . Suggested INR therapeutic range for Vitamin K anta gonist therapy: Standard Dose (moderate intensity therapeutic range): 2.0 - 3.0 Higher intensity therapeutic range 2.5 - 3.5 2-Ywc-138809:29 METABOLIC PANEL, COMPREHENSIVE Comments: PERFORMED BY: [employer] [facility] [id number] (20393) ALT (SGPT) 36 [iU]/L (Abnormal) Range: 0-32 [...] Glucose, Serum 97 mg/dL (Normal) Range: 65-99 1-Zjd-908327:29 CBC W/AUTO DIFF WBC (86157) Comments: PERFORMED BY: Geekatoo6370 [facility] [id number] Immature Grans (Abs) 0.0 {x10E3/uL} (Normal) Range: [...] CRITICAL VALUE REPEATED AND VERIFIED. CALLED TO PTZVLTBJ32/04/15 09 Alicja Root.RESULTS READ BACK BY MILAGROS .[facility] [address] [place], [place], [id number] D-DIMER QUANT 0.88 {FEU/ug/m} (Abnormal) Range: 0.27-0.49 Comments: D-Dimer ELEVATED (>0.49): Additional studies and clinicalassessments are indicated to conclude diagnosis of:Deep Vein Thrombosis (DVT) or Pulmonary Embolism (PE) :50 CBC W/Diff, Automated Comments: [facility] [address] [place], [address] Absolute Lymph 0.85 {X10_3/ul} (Normal) Range: 0.83-4.51 [...] 4.2-5.4 WBC 3.1 K/mm3 (Abnormal) Range: 4.4-11.0 46-Ans-85664:50 EBV Acute Prof IgG / IgM Comments: [facility] (refer to report for specific site)refer to report for address and phone number INTERPRETATION Comment (Normal) Comments: EBV Interpretation ChartInterpretation EBV-IgM EA(D)-IgG VCA-IgG EBNA-IgGEBV Seronegative - - - -Early Phase + - - -Acute Primary + +or- + -InfectionConvalescence/Past - +or- + +InfectionReactivated +or- + + +Infection + Antibody Present - Antibody Ab sentPerformed at: - [facility] [address] [place], [place] [id number] Director: Demsond Cardoza PhD, Phone: [phone] EB-NAg [id number] < 18.0 U/mL (Normal) Range: 0.0-17.9 Comments: Negative <18.0 Equivocal 18.0 - 21.9 Positive >21.9 EB-VCA [id number] < 18.0 U/mL (Normal) Range: 0.0-17.9 Comments: Negative <18.0 Equivocal 18.0 - 21.9 Positive >21.9 EB-EA IgG [id number] <9.0 U/mL (Normal) Range: 0.0-8.9 Comments: Negative < 9.0 Equivocal 9.0 - 10.9 Positive >10.9 EB-VCA [id number] < 36.0 U/mL (Normal) Range: 0.0-35.9 Comments: Negative <36.0 Equivocal 36.0 - 43.9 Positive >43.9 Plan of Care Name Dates Details Instructions Body mass index (BMI) of 19.0-19.9 in [...] Indication: Tendonitis of other site Planned Observations CBC, PLATELETS & AUT DIFF ([id number])Indication: Lymphopenia On: 4-Yrw-115690:54 Request CBC, Platelets & Auto Diff ([id number])Indication: Lymphopenia On: 21-Cyw-536524:31 Request Comments: PlEASE DO Peripheral smear send to pathology PT has had lymphopenia Factor 2 (Prothrombin) Gene Mutation ([id number])Indication: Pulmonary embolism on right On: 96-Wdj-745501:09 Request AST (SGOT) (ASPART AMINO TRANSFERASE) ([id number])Indication: Elevated liver enzymes On: 20-Oyt-867223:06 Request Protein S Profile ([id number])Indication: Pulmonary embolism on right On: 33-Udd-863800:04 Request Protein C Profile ([id number])Indication: Pulmonary embolism on right On: 23-Uro-261241:04 Request Homocysteine, Plasma (29914)Indication: Pulmonary embolism on right On: :04 Request Antiphospholipid atb (97182)Indication: Pulmonary embolism on right On: 75-Bwg-024969:04 Request ANTICOAG ANTTHROMB III & ASSAY ([id number])Indication: Pulmonary embolism on right On: :04 Request ANTITHROMBIN III ACTIVTY ([id number])Indication: Pulmonary embolism on right On: 23-Huw-113521:04 Request Factor V Leiden (49496)Indication: Pulmonary embolism on right On: :04 Request MTHFR (76222)Indication: Pulmonary embolism on right On: 79-Ffv-783357:04 Request D-Dimer (84707)Indication: Chest pain On: 21-Mar-20157:34 Request CBC WITH MANUAL DIFF ([id number])Indication: Fever On: 80-Shh-92448:49 Request Comments: stat EBV Panel ([id number])Indication: Fever On: 86-Fnz-59660:49 Request Planned Encounters Medical; 2 Week FU - On: 31-May-2018 13:00 [facility] Tahira Arriaga CNP Planned Procedures Holter Monitor 24 hrsBy: Bart HARRIS, On: 17-May-2018 Intent Tahira Gonzalez Venous Doppler - RightBy: Kae ESTRADA, On: 07-Nov-2015 Intent Chong Comments: history of pulmonary embolism 04/01, off xarelto since 08/31. Travel 1 week ago, now knee and leg and thigh pain.R/O DVT Radiology - Knee - RightBy: Kae On: 07-Nov-2015 Intent Chong ESTRADA VENOUS DOPPLER LOWER EXTREMITY On: 04-Oct-2015 Intent ([id number])By: Mary Rose MD Comments: please do BILATERAL LOWER EXTREMITIES Doppler Ultrasound OtherBy: Fast On: 21-Mar-2015 Intent Michelle PORTILLO Comments: stat call results- legs COMPUTED TOMOGRAPHY ANGIOGRAPHY OF On: 21-Mar-2015 Intent CHEST WITH AND WITHOUT CONTRAST ([id number])By: Mary Rose MD Radiology - Wrist - RightBy: On: 17-Sep-2006 Intent Mayr Rose MD Instructions Name Dates Details Mitral valve prolapse : How to access [...] Fever : Patient Instructions Indication: Fever Encounters Lab Order On: 21-May-2018 10:50 Encounter Diagnosis: [...] and felt dizzi. Went to ER at [facility] had EKG and chest, nor End: [...] may and has been - - called [facility] thursday with the chest sx - they [...] trending down - getting sweats- works at [employer] Encounter Diagnosis: Fever, Cough [facility] [...]
--- OUTSIDE RECORDS SUMMARY | 2018-08-09 03:53 | XMS RPT_ITS | Continuity of Care Document ---
:1980 Author Organization [facility] Address [address] [place] [address] Phone Care Team Providers Name Role Phone Nicolasa Vasquez DO Unavailable Physical Therapy, [facility] Unavailable Tasha Javed Unavailable Unavailable Ciesa KIMBERLY Yanna Unavailable Unavailable Unavailable Problems Name Dates Details Abnormal blood finding (R79.9, 790.99) Status: Active Abortions/Miscarriages Comments: Spontaneous , 1, 1st trimester Status: Active Anxiety (F41.9, 300.00) Comments: like adrenalin becker Status: Active Body mass index (BMI) of 19.0-19.9 in adult (Z68.1, V85.1) Status: Active Current nonsmoker (Renamed from Current non-smoker) (Z78.9, V49.89) Status: Active Deliveries (Parity) Comments: Term, 5 Status: Active Elevated liver enzymes (R74.8, 790.5) Comments: better nowr/t tylenol, had been using pretty consistently with fever, cough and pneumonia Status: Active Insomnia (G47.00, 780.52) Status: Active 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 Status: Active Lymphopenia (D72.810, 288.51) Status: Active Mitral valve prolapse (I34.1, 424.0) Status: Active Palpitations (R00.2, 785.1) Comments: incomplet rt bundle branch block Status: Active Panic (F41.0, 300.01) Comments: feeling of panic and fatigue and general anxiety reviewed ER note old record, does not want antianxiety or manager intermediate anxiety med Status: Active Pregnancies () Comments: 6 Status: Active Pressure in head (R51, 784.0) Comments: with foggy thinking, neg neuro exam except photophobia Status: Active Protein S deficiency (D68.59, 289.81) Status: Active Pulmonary embolism on right (I26.99, 415.19) Comments: saw antione burch 09-19-15. will do hypercoag labs after off [...] 12 days.HAs protein S deficiency and seeing [facility] next week.Doppler 3 weeks ago negative.NC car [...] vitamin End : 15-Mar-2008 Discontinued PRENATE ELITE, 60-300-169MA-MCG-MCG (PO Tab) 1 qd for 0 days [...] Pt (1) Result: Comments: See Note; NOTES: [facility] [address] [place] [address]. [address] [place] [address] Fax REHABILITATION SERVICES DISCHA RGE SUMMARY MR#: [id number] Acct: [id number] Name: BEAN IGLESIAS Rep #: [id number] : 1980 35 From: Tonia PATTENT Referring DrGricelda: Michelle Thacker DO Status: REG [...] - PT Result: Comments: See Note; NOTES: [facility] [address] [place] [address]. [address] [place] [address] Fax REHABILITATION SE RVICES INITIAL EVALUATION MR#: [id number] Acct: [id number] Name: BEAN IGLESIAS Rep #: [id number] : 1980 35 From: Yisel Sidhu Referring [...] to be FAXED BACK to us at [phone] for Medicare purposes. Cynthia roldan let me know if there are questions or concerns regarding this plan of care. Physician Signature: Date: <Electronically signed by Yisel Sidhu > 11/20/15 1521 CC: Chong Pal Signed For Medicare only, by signing this I certify the plan of care. Physicians Signature Date 16-Nov-2015 Venous Duplex Lower Extremity Result: Comments: See Note; NOTES: [facility] Cardiovascular Services [address] [place] [address] Venous Duplex US, Unilateral 11/15/15 1311 MR#: [id number] Acct: [id number] Name: BEAN IGLESIAS Rep #: [id number] : 1980 35 From: Constantine Justin MD [...] Chong Pal Performed By: Lizzie Hernandez RVT 241 Date Constantine Justin MD CC: Chong Pal Date Dictated: 11/15/15 1311 Date Transcribed: 11/16/15241 Assistant Portfolio Manager: Signed 07-Nov-2015 Knee 4 or More Views Result: Comments: See Note; NOTES: [facility] Imaging Services [address] [place] [address] Verdana 4d Knee 4 or More Views MR#: [id number] Acct: [id number] Name: BEAN IGLESIAS Rep #: [id number] : 1980 F 35 From: David Clark MD PCP: Mary Rose MD Status: REG CLI Study: Knee 4 or More Views Date of Exam: 11/07/15 Exam# [id number] Ordering Dr: Chong Pal STUDY: X-RAY - [...] at 16:53 EDT Tel , Service support [phone], RAD/Knee 4 or More Views IMPRESSION: Small joint effusion. Otherwise normal x-ray examination of the knee. Electronically Signed: David Clark MD, FACR at 16:53 EDT , Service support [phone], CC: Mary Rose MD; Chong Pal Assistant Portfolio Manager: Signed 19-Oct-2015 Venous Duplex Lower Extremity Result: Comments: See Note; NOTES: [facility] Cardiovascular Services [address] [place] [address] Venous Duplex US - Lorenzo Extrem 10/19/15 1316 MR#: [id number] Acct: [id number] Name: BEAN IGLESIAS Rep #: [id number] : 1980 35 From: Constantine Justin MD [...] Dictated: 10/19/15 1316 Date Transcribed: 10/19/15 1355 Assistant Portfolio Manager: Signed 11-Apr-2015 Chest PA and Lateral Result: Comments: See Note; NOTES: [facility] Imaging Services [address] [place] [address] Verdana 4d Chest PA and Lateral MR#: [id number] Acct: [id number] Name: BEAN IGLESIAS Rep #: [id number] : 1980 F 34 From: Young Garibay PCP: Mary Rose MD Status: REG CLI Study: Chest PA and Lateral Date of Exam: 04/11/15 Exam# [id number] Ordering Dr: Hernandez Hansen MD STUDY: X-RAY [...] DO at 23:48 EST , Service support [phone], RAD/Chest PA and Lateral IMPRESSION: No acute cardiopulmonary disease. Electronically Signed: Young Garibay DO at 23:48 EST T el [phone], Service support [phone], CC: Mary Rose MD; Hernandez Hansen MD Assistant Portfolio Manager: Signed 21-Mar-2015 CTA Chest W/WO Contrast Result: Comments: See Note; NOTES: [facility] Imaging Services [address] [place] [address] Verda 4d CTA Chest W/WO Contrast MR#: [id number] Acct: [id number] Name: BEAN BOYER Rep #: [id number] : 1980 F 34 From: Mohan Bray MD PCP: Mary Rose MD Status: REG CLI Study: CTA Chest W/WO Contrast Date of Exam: 03/21/15 Exam# [id number] Ordering Dr: Mary Sepulveda MD STUDY: CTA [...] Mohan Bray MD at 11:52 EST Tel [phone], Service support [phone], CC: Mary Rose MD Assistant Portfolio Manager: Signed Family History Unknown Family Member Name Dates Details Father Comments: blood clot in lung after leg surgery Status: Active First Degree Relatives Comments: Colon & liver cancer - Uncle Status: Active Social History Name Dates Details Current Work/Study Status Comments: 2 days a week @ [employer] Status: Active Exercise History Comments: [place] 1/2 hr QOD Status: Active Living Situation Comments: , Lives with spouse Status: Active 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 Status: Active Smoking Status Name Dates Details Never smoker Vital Signs Date Test Result Details 24-May-20188:46 Temperature 98.1 f Comments: Method: Temporal [...] kg/m2 Body Surface Area Calculated 1.68 m2 :03 Comments: orthos:sitting- bp 112/70 pulse 98standing- bp [...] 0.00 cm Results Date Description Value Details 5-Uds-366310:19 CBC W/Diff, Automated Comments: [facility] [address] [place], [place], [id number] Absolute Lymph 0.67 {X10_3/ul} (Abnormal) Range: 0.83-4.51 [...] 4.2-5.4 WBC 5.3 K/mm3 (Normal) Range: 4.4-11.0 02-Vdm-783021:58 CALCIFEDIOL (33930) Comments: PERFORMED BY: [facility] CenterNrzbzv6062 [facility] [id number] Vitamin D, 25-Hydroxy 27.5 ng/mL (Abnormal) Range: 30.0-100.0 Comments: Vitamin D deficiency has been defined by the [place] ofMedicine and an Endocrine Society practice guideline as alevel of serum 25-OH vitamin D less than 20 ng/mL (1,2).The Endocrine Society went on to further define vitamin Dinsufficiency as a level between 21 and 29 ng/mL (2).1. IOM ([place] of Medicine). 2010. Dietary reference intakes for calcium and D. [place]: The National Academies Press.2. Nitza MF, Shena NC, Miguelito PATHAK, et al. Evaluation, treatment, and prevention of vitamin D deficiency: an Endocrine Society clinical practice guideline. JCEM. 2010; 96(7):1911-30. 97-Boi-895268:58 VITAMIN B12 AND FOLATES Comments: PERFORMED BY: [place] [id number] (13730) Folate (Folic Acid), Serum 19.1 ng/mL (Normal) Comments: A serum folate concentration of less than 3.1 ng/mL isconsidered to represent clinical deficiency. Vitamin B12 680 pg/mL (Normal) Range: 232-1245 07-Xsc-440350:58 T4, FREE (THYROXINE) (69526) Comments: PERFORMED BY: [address] [place] [id number] T4,Free(Direct) 1.64 ng/dL (Normal) Range: 0.82-1.77 :58 T3, FREE (TRIDOTHYRONINE) (88933) Comments: PERFORMED BY: [place] [id number] Triiodothyronine (T3), Free 2.9 pg/mL (Normal) Range: 2.0-4.4 83-Ucb-806936:58 TSH (THYROID STIMULATING Comments: PERFORMED BY: [place] [id number] HORMONE) (71001) TSH 0.861 {uIU/mL} (Normal) Range: 0.450-4.500 26-Qoc-071232:46 Blood Glucose , Office (39479) Blood Glucose , Office 93 (Normal) 52-Oyv-262195:16 CBC W/Diff, Auto - EPLAB Comments: At [facility] Medical Oncologypatients receive CBC w/auto Differential ONLY. Physicianwill place an order for a manual differential or Pathologistreview at his discretion. [facility]. [address] [place] [address] [address] FASHION PATTERNMAKER: KARLA HENRY DO PH:[phone] [address] [place], [place], [id number] ; managed by Dr. Tito Pal Absolute [...] 3.9 K/mm3 (Abnormal) Range: 4.4-11.0 :53 D-Dimer (93579) Comments: copy to Dr. Pal; PATIENT NOT FASTINGPERFORMED BY: [facility] [address] [id number] BY: CB [facility] Fnavqt3584 [facility] [id number] D-Dimer 0.43 {mg/L_FEU} (Normal) Range: 0.00-0.49 Comments: According to the assay bad credit collector's published package insert, anormal (<0.50 mg/L FEU) D-dimer result in conjunction with a non-highclinical probability assessment, excludes deep vein thrombosis (D VT)and pulmonary embolism (PE) with high sensitivity. .D-dimer values increase with age and this can make VTE exclusion ofan older pop ulation difficult. To address this, the [place] [employer], based on best available evidence [...] to Dr. Pal; PATIENT NOT FASTINGPERFORMED BY: [employer] [id number] BY: [facility] [id number] (43583) al Information: [id number], DRAW FEE 869690 Protein S-Functional 63 % (Normal) Range: 60-145 Protein S, Free 59 % (Normal) Range: 56-124 Protein S, Total 91 % (Normal) Range: 58-150 :53 LDH (LD) (LACTATE Comments: copy to Dr. Pal; PATIENT NOT FASTINGPERFORMED BY: [employer] [id number] BY: [employer]70 LockrNov[facility] Health [id number] DEHYDROGENASE) (29390) LDH 132 [iU]/L (Normal) Range: 119-226 :56 URIC ACID BLOOD (85458) Comments: copy to Dr. Pal; PATIENT NOT FASTINGPERFORMED BY: [facility] [id number] Uric Acid, Serum 4.0 mg/dL (Normal) Range: 2.5-7.1 Comments: Therapeutic target for gout patients: <6.0 :56 CBC WITH MANUAL DIFF Comments: copy to Dr. Pal; PATIENT NOT FASTINGPERFORMED BY: [address] [facility] [id number] Information: [id number] (52986) Immature Grans (Abs) 0.0 {x10E3/uL} (Normal) Range: [...] to Dr. Pal; PATIENT NOT FASTINGPERFORMED BY: [employer]70 [facility] [id number] (40974) ALT (SGPT) 24 [iU]/L (Normal) Range: 0-32 [...] Glucose, Serum 96 mg/dL (Normal) Range: 65-99 34-Xns-362121:21 Protein S Profile Comments: PATIENT NOT FASTINGPERFORMED BY: [facility] Jgfagxwsyt1911 [facility] [id number] Information: 137789,S27500 (67627) Protein S-Functional 54 % (Abnormal) Range: 60-145 [...] S, Total 91 % (Normal) Range: 58-150 0-Bcy-099745:02 Anticardiolip Ab, IgA/G/M, Comments: PATIENT NOT FASTINGPERFORMED BY: BN [facility] Fdawjfymrz7499 [facility] [id number] BY: CB [facility] Thyguf0645 [facility]dezS[facility] [id number] BY: TG [facility] Qn JTH0126 [facility] [id number] Anticardiolipin Ab,IgA,Qn <9 {APL_U/mL} (Normal) Range: 0-11 [...] Antithrombin III, Comments: PATIENT NOT FASTINGPERFORMED BY: [facility] [id number] BY: [employer] [facility] Dulfjo7911 Mel[address] [employer] Technologiesin [place] [id number] BY: [facility] Func/Immunol XZD8600 [facility] [id number] Antithrombin Antigen 98 % (Normal) Range: 75-130 Antithrombin Activity 104 % (Normal) Range: 75-135 AST (SGOT) 27 [iU]/L (Normal) Comments: PATIENT NOT FASTINGPERFORMED BY: [facility] [address] [id number] BY: [facility] Fvogmt6073 [facility] HospitalPhys[facility] Practice Revenue SolutionsNovant Health [id number] BY: [facility] : KSH7638 [facility] [id number] Range: 0-40 Factor II, DNA Analysis FIING2 (Normal) Comments: PATIENT NOT FASTINGPERFORMED BY: [facility] [id number] BY: [facility]CoHam[facility] CenterZjxlsb5974 Mel[address] [facility]usHarris [facility] [id number] BY: [facility] : CNW5639 [facility] [id number] Comments: NEGATIVENo mutation identified. .Comment:A point mutation (L96525I) in the factor II (prothrombin) gene is thesecond most common cause of inherited thrombophilia. The incidence ofthis mutation in the [place] population is about 2% and in theAfrican [place] population it is approximately 0.5%. This mutation [...] mutations.This assay detects only the prothrom bin M37393M mutation and doesnot measure genetic abnormalities elsewhere in the genome. Otherthrombotic risk factors may be pursued through systematic clinicallaboratory analysis. These factors include the R506Q (Leiden)mutation in the Factor V gene, plasma homocysteine levels, as wellas testing for deficiencies of antithrombin III, protein C andprotein S.Genetic Counselors are available for health [facility] providersto discuss results at [phone] ([phone]). .Methodology:DNA analysis of the Factor II gene was performed by PCRamplification follow ed by restriction analysis. Thediagnostic sensitivity is >99% for both. All the tests mustbe combined with clinical information for the most accurateinterpretation. Molecular-based testing is highly accurate,but as in any laboratory test, diagnostic errors may occur. .Poort SR, et al. Blood. 1996; 88:5713-5672.Luciana SHELBY. Circulation. 2004; 110 :e15-e18.Cesar I, et al. Arterioscler Thromb Vasc Biol. 1999;19:700-703. .Tiara Blake, Nurys Meza PhDAn wilfredo Tasha, Gibson Thomas, PhDZayda Figueroa, PhD . 5-Rbo-710574:02 Factor V Leiden Mutation Comments: PATIENT NOT FASTINGPERFORMED BY: BN [facility] Wspzswwfqc0024 [facility] [id number] BY: CB [facility] Vbaigg6071 [address] Estr[place] [place] [id number] BY: TG [facility] RNW1017 [facility] [id number] Factor V Leiden FVNEG3 (Normal) Comments: Result: [...] in the workup for venous thrombosis include wqmK71064I mutation in the factor II (prothrombin) gene,protein S and C deficiency, and antithromb in deficiencies.Anticardiolipin antibody and lupus anticoagulant analysismay be appropriate for certain patients, as well ashomocysteine levels. .Contact your local [facility] for information on how to orderadditional testing if desired. .Genetic counselors are available for health care p kimberly to discuss results at [phone] (6513). .Methodology:DNA analysis of the Factor V gene was performed by allele-specific PCR. The diagnostic sensitivity and specificity is >99% for both.Molecular- based testing is highly accurate, but as in any laboratorytest, diagnostic errors may occur. All test results must be combin edwith clinical information for the most accurate interpretation. .References:Gurjit Amaya (1996). Clin Lab Med 16:169-186. .Tiara Blake, Zeferino Kamara, PhDLuzmaria Rogel, Felipe Cordova, Gibson Thomas, Jennie Figueroa, PhD . Homocyst(e)ine, 8.5 umol/L Comments: PATIENT NOT FASTINGPERFORMED BY: BN [facility] Ewvxcygyaq3206 [facility] [id number] BY: CB [facility] Iialeb1479 [facility] [id number] BY: TG [facility] 4:02 Plasma (Normal) MYX0226 Malachi AbrahamDEPART[facility] OF [facility] [id number] Range: 0.0-15.0 6-Xuc-007757:02 MTHFR Comments: PATIENT NOT FASTINGPERFORMED BY: BN [facility] Fubcnlpydd7049 [facility] [id number] BY: CB [facility] Vvqpxk6460 [facility] [id number] BY: TG [facility] JCD6958 Malachi AbrahamDEPARTMENT OF [facility] [id number] MTHFR, DNA Analysis LYM340 (Normal) Comments: Result: N2746D/J1764O Two copies of the same mutation (M3385W/F2786D) identified .Interpretation: .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 The MTHFR C677T variant was [...] homocysteine. Other riskfactors may be detected thro [facility] systematic clinical laboratoryanalysis.Genetic counselors are available to discuss these results with healthcare providers at [phone]. .Methylenetetrahydrofolate reductase (MTHFR) is a blanc enzyme in thefolate pathway and is responsible for the metabolism of homocysteine.There are two common variants in the MTHFR gene, c.655 C>T(p.Lwx454Tls), referred to as C677T, and c.1286A>C (p.Fcg213Rit),referred to as Z5870M. Individuals homozygous for C677T (two copiesof the variant), have decreased activity of the MTHFR enzyme and apredisposition to hyperhomocysteinemia, particularly when deficient infolate. Hyperhomocysteinemia is a risk factor for venous thrombosisand coronary artery disease and is associated with an increa sed riskof open neural tube defects. The C677T variant does notindependently increase risk of these conditions in the absence ofhyperhomocysteinemia. The D1421Z variant is not associated witheleva magui homocysteine levels unless a C677T variant is also present;however, the clinical significance of heterozygosity for both U081Yeru V5469X is controversial. Population data suggest that these twovaria nts are not present on the same chromosome, but rare exceptionshave been reported of triple variant MTHFR genotypes (ie. homozygousfor one variant and heterozygous for the other). Homozygosity iqpA997Z has an estimated frequency of 10% to [...] 131(6):872-884.Frosst P et al. Nilsa Christine 1995; 10(1):111-113.Marisel SE et al. Christine Med 2013; 15(2):153-156.Guille C et al. Obstet Gynecol 2011; 118(3):730-740.Yo B et al. Eur J Epidemiol 2013; 28(8):621-647. .Tiara Blake, PhDLatosha Kamara, PhDLuzmaria Rogel, PhDBritney Cordova MS, PhDMily Thomas, PhDZayda Figueroa, PhD 6-Nel-238619:02 Protein C Deficiency Comments: PATIENT NOT FASTINGPERFORMED BY: BN [facility] Qeivegjife4634 [facility] [id number] BY: CB [facility] Fednst6400 [address] Ascent [employer] Technologiesblin [place] [id number] BY: [facility] CLT2257 ANETTE AbrahamDEPARTMENT OF V[facility] [id number] Protein C-Functional 111 % (Normal) Range: 74-151 Protein C Antigen 82 % (Normal) Range: 70-140 9-Jax-507007:02 Protein S Panel Comments: PATIENT NOT FASTINGPERFORMED BY: BN [facility] Cbqawjbemj0788 [facility] [id number] BY: CB [facility] Uabanr8886 Mel[address] [facility] Solar TechnologiesNovant Health [id number] BY: TG [facility] CEF5331 [address] [place] [id number] Protein S-Functional 55 % (Abnormal) Range: 60-145 [...] S, Total 90 % (Normal) Range: 58-150 6-Hbd-279149:29 PTT (Activated Partial Comments: PERFORMED BY: CB [facility] Frqkfo7888 [address] [employer] Technologiesbl[place] [id number] Thromboplastin Time) (73201) aPTT 34 {sec} (Abnormal) Range: 24-33 Comments: This test has not been validated for monitoring unfractionated heparintherapy. aPTT-based therapeutic ranges for unfractionated heparintherapy have not been established. For general guidelines onHeparin monitoring, refer to the [facility] Directory of Services. 5-Hvk-122496:29 PT (Prothrobim Time) (99603) Comments: PERFORMED BY: [facility]6370 [facility] [id number] Prothrombin Time 11.2 {sec} (Normal) Range: 9.1-12.0 INR 1.1 (Normal) Range: 0.8-1.2 Comments: Reference interval is for non-anticoagulated patients. . Suggested INR therapeutic range for Vitamin K anta gonist therapy: Standard Dose (moderate intensity therapeutic range): 2.0 - 3.0 Higher intensity therapeutic range 2.5 - 3.5 1-Phm-975942:29 METABOLIC PANEL, COMPREHENSIVE Comments: PERFORMED BY: [facility]6370 [facility] [id number] (82084) ALT (SGPT) 36 [iU]/L (Abnormal) Range: 0-32 [...] Glucose, Serum 97 mg/dL (Normal) Range: 65-99 3-Dcr-777740:29 CBC W/AUTO DIFF WBC (51307) Comments: PERFORMED BY: [facility] CenterHlwzqh0126 [facility] [id number] Immature Grans (Abs) 0.0 {x10E3/uL} (Normal) Range: [...] CRITICAL VALUE REPEATED AND VERIFIED. CALLED TO QQFNBPOF03/04/15 0947 Alicja Root.RESULTS READ BACK BY MILAGROS .[facility] [address] [place], [place], [id number] D-DIMER QUANT 0.88 {FEU/ug/m} (Abnormal) Range: 0.27-0.49 Comments: D-Dimer ELEVATED (>0.49): Additional studies and clinicalassessments are indicated to conclude diagnosis of:Deep Vein Thrombosis (DVT) or Pulmonary Embolism (PE) :50 CBC W/Diff, Automated Comments: [facility] [address] [place], [place], [address] Absolute Lymph 0.85 {X10_3/ul} (Normal) Range: 0.83-4.51 [...] 4.2-5.4 WBC 3.1 K/mm3 (Abnormal) Range: 4.4-11.0 44-Kph-24112:50 EBV Acute Prof IgG / IgM Comments: [facility] (refer to report for specific site)refer to report for address and phone number INTERPRETATION Comment (Normal) Comments: EBV Interpretation ChartInterpretation EBV-IgM EA(D)-IgG VCA-IgG EBNA-IgGEBV Seronegative - - - -Early Phase + - - -Acute Primary + +or- + -InfectionConvalescence/Past - +or- + +InfectionReactivated +or- + + +Infection + Antibody Present - Antibody Ab sentPerformed at: [address] [id number] Director: Desmond Cardoza PhD, Phone: [phone] EB-NAg [id number] < 18.0 U/mL (Normal) Range: 0.0-17.9 Comments: Negative <18.0 Equivocal 18.0 - 21.9 Positive >21.9 EB-VCA EyZ51064 < 18.0 U/mL (Normal) Range: 0.0-17.9 Comments: Negative <18.0 Equivocal 18.0 - 21.9 Positive >21.9 EB-EA IgG 02786 <9.0 U/mL (Normal) Range: 0.0-8.9 Comments: Negative < 9.0 Equivocal 9.0 - 10.9 Positive >10.9 EB-VCA BnP30453 < 36.0 U/mL (Normal) Range: 0.0-35.9 Comments: [...] Indication: Tendonitis of other site Planned Observations Anti-TPO Antibody (59714)Indication: Panic On: :40 Request D-Dimer (78154)Indication: Anxiety On: :40 Request LDH (LD) (LACTATE DEHYDROGENASE) (66357)Indication: Anxiety On: :39 Request CBC, Platelets & Auto Diff (39275)Indication: Lymphopenia On: :32 Request GONADOTROPIN-LH (67429)Indication: Anxiety On: :29 Request GONADOTROPIN-FSH (82258)Indication: Anxiety On: :29 Request CBC, PLATELETS & AUT DIFF (43507)Indication: Lymphopenia On: 5-Bof-953394:54 Request CBC, Platelets & Auto Diff (15513)Indication: Lymphopenia On: 83-Crn-416595:31 Request Comments: PlEASE DO Peripheral smear send to pathology PT has had lymphopenia Factor 2 (Prothrombin) Gene Mutation (07823)Indication: Pulmonary embolism on right On: :09 Request AST (SGOT) (ASPART AMINO TRANSFERASE) (18514)Indication: Elevated liver enzymes On: :06 Request Protein S Profile (86874)Indication: Pulmonary embolism on right On: :04 Request Protein C Profile ([id number])Indication: Pulmonary embolism on right On: :04 Request Homocysteine, Plasma (46086)Indication: Pulmonary embolism on right On: :04 Request Antiphospholipid atb (89919)Indication: Pulmonary embolism on right On: 90-Ata-310977:04 Request ANTICOAG ANTTHROMB III & ASSAY ([id number])Indication: Pulmonary embolism on right On: 12-Ubt-140486:04 Request ANTITHROMBIN III ACTIVTY ([id number])Indication: Pulmonary embolism on right On: 48-Jvq-484071:04 Request Factor V Leiden (00180)Indication: Pulmonary embolism on right On: :04 Request MTHFR ([id number])Indication: Pulmonary embolism on right On: 11-Ueu-644591:04 Request D-Dimer ([id number])Indication: Chest pain On: :34 Request CBC WITH MANUAL DIFF ([id number])Indication: Fever On: :49 Request Comments: stat EBV Panel ([id number])Indication: Fever On: :49 Request Planned Encounters Medical; 2 Week FU - On: 07-Jun-2018 10:15 [facility] Tahira Arriaga CNP Planned Procedures Ultrasound - Abdomen Complete & [...] VENOUS DOPPLER LOWER EXTREMITY On: 04-Oct-2015 Intent ([id number])By: Mary Rose MD Comments: please do BILATERAL LOWER EXTREMITIES Doppler Ultrasound OtherBy: Fast On: 21-Mar-2015 Intent Michelle PORTILLO Comments: stat call results- legs COMPUTED TOMOGRAPHY ANGIOGRAPHY OF On: 21-Mar-2015 Intent CHEST WITH AND WITHOUT CONTRAST ([id number])By: Mary Rose MD Radiology - Wrist - RightBy: On: 17-Sep-2006 Intent Mary Rose MD Instructions Name Dates Details Current nonsmoker (Renamed from Current non-smoker) : [...] Instructions Indication: Fever Encounters Office Visit On: 24-May-2018 8:44 Encounter Reason: [...] and felt dizzi. Went to ER at [facility] had EKG and chest, nor End: 17-May-2018 [...] 08-Nov-2015 15:56 Encounter Diagnosis: Unspecified Diagnosis End: 23-Cooper-2016 16:03 [facility] Office Visit On: [...] may and has been - - called [facility] thursday with the chest sx - [...] trending down - getting sweats- works at [employer] Encounter Diagnosis: Fever, Cough [facility] [...] with lifting. Encounter Diagnosis: Tendonitis, Unspecified Site (726.54) [facility]
--- OUTSIDE RECORDS SUMMARY | 2018-08-09 03:54 | XMS RPT_ITS | Continuity of Care Document ---
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 [address] [place] [address] Fax REHABILITATION SERVICES [facility] SUMMARY MR#: [id number] Acct: [id number] Name: BEAN IGLESIAS Rep #: [id number] : 1980 35 From: Tonia Medina DPJohnathan Referring DrGricelda: Michelle Thacker DO Status: REG [...] - PT Result: Comments: See Note; NOTES: [facility]. [address] [place], [place] [address] Fax REHABILITATION SE RVICES INITIAL EVALUATION MR#: [id number] Acct: [id number] Name: BEAN IGLESIAS Rep #: [id number] : 1980 35 From: Yisel Sidhu Referring [...] to be FAXED BACK to us at [phone] for Medicare purposes. Cynthia roldan let me know if there are questions or concerns regarding this plan of care. Physician Signature: Date: <Electronically signed by Yisel Sidhu > 11/20/15 1521 CC: Chong Pal Signed For Medicare only, by signing this I certify the plan of care. Physicians Signature Date 16-Nov-2015 Venous Duplex Lower Extremity Result: Comments: See Note; NOTES: [facility] Cardiovascular Services [address] [place] [address] Venous Duplex US, Unilateral 11/15/15 1311 MR#: [id number] Acct: [id number] Name: BEAN IGLESIAS Rep #: [id number] : 1980 35 From: Constantine Justin MD [...] Dictated: 11/15/15 1311 Date Transcribed: 11/16/15 0242 Dustless Operator: Signed 07-Nov-2015 Knee 4 or More Views Result: Comments: See Note; NOTES: [facility] Imaging Services [address] [place] [address] Verdana 4d Knee 4 or More Views MR#: [id number] Acct: [id number] Name: BEAN IGLESIAS Rep #: [id number] : 1980 F 35 From: David Clark MD PCP: Mary Rose MD Status: REG CLI Study: Knee 4 or More Views Date of Exam: 11/07/15 Exam# [id number] Ordering Dr: Chong Pal STUDY: X-RAY - [...] at 16:53 EDT Tel , Service support [phone], RAD/Knee 4 or More Views IMPRESSION: Small joint effusion. Otherwise normal x-ray examination of the knee. Electronically Signed: David Clark MD, FACR at 16:53 EDT , Service support [phone], CC: Mary Rose MD; Chong Pal Dustless Operator: Signed 19-Oct-2015 Venous Duplex Lower Extremity Result: Comments: See Note; NOTES: [facility] Cardiovascular Services [address] [place] [place] [address] Venous Duplex US - Lorenzo Extrem 10/19/15 1316 MR#: [id number] Acct: [id number] Name: BEAN IGLESIAS Rep #: [id number] : 1980 35 From: Constantine Justin MD [...] Dictated: 10/19/15 1316 Date Transcribed: 10/19/15 1355 Dustless Operator: Signed 11-Apr-2015 Chest PA and Lateral Result: Comments: See Note; NOTES: [facility] Imaging Services [address] [place] [id number] [place] [address] 4d Chest PA and Lateral MR#: [id number] Acct: [id number] Name: BEAN IGLESIAS Rep #: [id number] : 1980 F 34 From: Young Garibay PCP: Mary Rose MD Status: REG CLI Study: Chest PA and Lateral Date of Exam: 04/11/15 Exam# [id number] Ordering Dr: Hernandez Hansen MD STUDY: X-RAY [...] DO at 23:48 EST , Service support [phone], RAD/Chest PA and Lateral IMPRESSION: No acute cardiopulmonary disease. Electronically Signed: Young Garibay DO at 23:48 EST T el [phone], Service support [phone], CC: Mary Rose MD; Hernandez Hansen MD Dustless Operator: Signed 21-Mar-2015 CTA Chest W/WO Contrast Result: Comments: See Note; NOTES: [facility] Imaging Services [address] [place] [address] Verdana 4d CTA Chest W/WO Contrast MR#: [id number] Acct: [id number] Name: EVELIA BEAN ANDREW Rep #: [id number] : 1980 F 34 From: Mohan Bray MD PCP: Mary Rose MD Status: REG CLI Study: CTA Chest W/WO Contrast Date of Exam: 03/21/15 Exam# [id number] Ordering Dr: Mary Sepulveda MD STUDY: CTA [...] Mohan Bray MD at 11:52 EST Tel [phone], Service support [phone], CC: Mary Rose MD Dustless Operator: Signed Family History Unknown Family Member Name Dates Details Father Comments: blood clot in lung after leg surgery Status: Active First Degree Relatives Comments: Colon & liver cancer - Uncle Status: Active Social History Name Dates Details Current Work/Study Status Comments: 2 days a week @ [employer] Status: Active Exercise History Comments: [place] 1/2 hr QOD Status: Active Living Situation Comments: , Lives with spouse Status: Active 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 Status: Active Smoking Status Name Dates Details Never smoker Vital Signs Date Test Result Details 08-Dcv-691218:03 Comments: orthos:sitting- bp 112/70 pulse 98standing- bp [...] Height 0 in Head Circumference 0.00 cm 2-Crb-676136:09 Temperature 97.7 f Comments: Method: Oral Pulse [...] 0.00 cm Results Date Description Value Details 35-Scy-955886:46 Blood Glucose , Office (00189) Blood Glucose , Office 93 (Normal) 98-Pig-623284:16 CBC W/Diff, Auto - EPLAB Comments: At [facility] Medical Oncologypatients receive CBC w/auto Differential ONLY. Physicianwill place an order for a manual differential or Pathologistreview at his discretion. [facility] OUTPATIENT [facility]. [address] [place] [address] [place] [address] EIGHT ARM OPERATOR: KARLA HENRY DO PH:[phone] [address] [place], [place], [id number] ; managed by Dr. Tito Pal Absolute [...] 4.2-5.4 WBC 3.9 K/mm3 (Abnormal) Range: 4.4-11.0 44-Arr-645909:53 D-Dimer (80029) Comments: copy to Dr. Pal; PATIENT NOT FASTINGPERFORMED BY: [facility] [address] [id number] BY: [facility] Jhehoq5735 [facility] [id number] D-Dimer 0.43 {mg/L_FEU} (Normal) Range: 0.00-0.49 Comments: According to the assay brush holder inspector's published package insert, anormal (<0.50 mg/L FEU) D-dimer result in conjunction with a non-highclinical probability assessment, excludes deep vein thrombosis (D VT)and pulmonary embolism (PE) with high sensitivity. .D-dimer values increase with age and this can make VTE exclusion ofan older pop ulation difficult. To address this, the [employer], based on best available evidence [...] to Dr. Pal; PATIENT NOT FASTINGPERFORMED BY: [facility] [id number] BY: [employer] Tscscn2210 [facility] [id number] (31919) al Information: [id number], DRAW FEE 012062 Protein S-Functional 63 % (Normal) Range: 60-145 Protein S, Free 59 % (Normal) Range: 56-124 Protein S, Total 91 % (Normal) Range: 58-150 :53 LDH (LD) (LACTATE Comments: copy to Dr. Pal; PATIENT NOT FASTINGPERFORMED BY: [facility] [id number] BY: [employer] Obrqry8240 [facility] [id number] DEHYDROGENASE) (42219) LDH 132 [iU]/L (Normal) Range: 119-226 :56 URIC ACID BLOOD (88734) Comments: copy to Dr. Pal; PATIENT NOT FASTINGPERFORMED BY: [employer] Qzgrzh0062 [facility] [id number] Uric Acid, Serum 4.0 mg/dL (Normal) Range: 2.5-7.1 Comments: Therapeutic target for gout patients: <6.0 :56 CBC WITH MANUAL DIFF Comments: copy to Dr. Pal; PATIENT NOT FASTINGPERFORMED BY: [employer] Iryqbb7028 [facility] [id number] Information: [id number] (15624) Immature Grans (Abs) 0.0 {x10E3/uL} (Normal) Range: [...] to Dr. Pal; PATIENT NOT FASTINGPERFORMED BY: [facility]6370 [facility] [id number] (09989) ALT (SGPT) 24 [iU]/L (Normal) Range: 0-32 [...] Glucose, Serum 96 mg/dL (Normal) Range: 65-99 98-Bic-814129:21 Protein S Profile Comments: PATIENT NOT FASTINGPERFORMED BY: [facility] [id number] Information: [id number] (88040) Protein S-Functional 54 % (Abnormal) Range: 60-145 [...] S, Total 91 % (Normal) Range: 58-150 4-Sbw-322784:02 Anticardiolip Ab, IgA/G/M, Comments: PATIENT NOT FASTINGPERFORMED BY: BN [facility] Dqyvcssrlz5444 [facility] [id number] BY: CB [facility] Qrtnun4888 [facility] [id number] BY: TG [facility] Qn KDI2241 [facility] [id number] Anticardiolipin Ab,IgA,Qn <9 {APL_U/mL} (Normal) Range: 0-11 [...] Positive: >20 - 80 High Positive: >80 3-Bwz-519621:02 Antithrombin III, Comments: PATIENT NOT FASTINGPERFORMED BY: BN [facility] Cejqotoimi8994 [facility] [id number] BY: CB [facility] Appgak7477 Melén[address] RoadDublin [place] [id number] BY: TG [facility] Func/Immunol JFF1904 [facility]SELECT [facility] [id number] Antithrombin Antigen 98 % (Normal) Range: 75-130 Antithrombin Activity 104 % (Normal) Range: 75-135 AST (SGOT) 27 [iU]/L (Normal) Comments: PATIENT NOT FASTINGPERFORMED BY: BN [facility] E[address]fs[address] [id number] BY: CB [facility] Xmpmhk9863 [address] [facility] HospitalDublJackson [facility] [id number] BY: TG [facility] : UGJ8899 Malachi AbrahamSELECT [facility] [id number] Range: 0-40 Factor II, DNA Analysis FIING2 (Normal) Comments: PATIENT NOT FASTINGPERFORMED BY: BN [facility] Ykuktthxsf[address] [id number] BY: CB [facility] Yejeuv5697 [address] [facility] HospitalDublin [place] [id number] BY: TG [facility] :02 VHD1074 Malachi AbrahamSELECT [facility] [id number] Comments: NEGATIVENo mutation identified. .Comment:A point mutation ([id number]) in the factor II (prothrombin) gene is thesecond most common cause of inherited thrombophilia. The incidence ofthis mutation in the [place] population is about 2% and in theAfrican [place] population it is approximately 0.5%. This mutation [...] mutations.This assay detects only the prothrom bin A06357I mutation and doesnot measure genetic abnormalities elsewhere in the genome. Otherthrombotic risk factors may be pursued through systematic clinicallaboratory analysis. These factors include the R506Q (Leiden)mutation in the Factor V gene, plasma homocysteine levels, as wellas testing for deficiencies of antithrombin III, protein C andprotein S.Genetic Counselors are available for health pr re providersto discuss results at [phone] ([phone]). .Methodology:DNA analysis of the Factor II gene was performed by PCRamplification follow ed by restriction analysis. Thediagnostic sensitivity is >99% for both. All the tests mustbe combined with clinical information for the most accurateinterpretation. Molecular-based testing is highly accurate,but as in any laboratory test, diagnostic errors may occur. .Poort SR, et al. Blood. 1996; 88:1097-8932.Lucaina EA. Circulation. 2004; 110 :e15-e18.Cesar I, et al. Arterioscler Thromb Vasc Biol. 1999;19:700-703. .Tiara Blake, Nurys Meza PhDAn nette Taylor, PhDAlecia Willis, PhDZayda Figueroa, PhD . 5-Ucm-821484:02 Factor V Leiden Mutation Comments: PATIENT NOT FASTINGPERFORMED BY: BN [facility] Xfmjzwmnqh6585 [facility] [id number] BY: CB [facility] Hzopte5568 [facility]dez[facility] [id number] BY: TG [facility] RYV9124 [facility] [id number] Factor V Leiden FVNEG3 (Normal) Comments: Result: [...] in the workup for venous thrombosis include [id number] mutation in the factor II (prothrombin) gene,protein S and C deficiency, and antithromb in deficiencies.Anticardiolipin antibody and lupus anticoagulant analysismay be appropriate for certain patients, as well ashomocysteine levels. .Contact your local [facility] for information on how to orderadditional testing if desired. .Genetic counselors are available for health care p kimberly to discuss results at [phone] ([phone]). .Methodology:DNA analysis of the Factor V gene was performed by allele-specific PCR. The diagnostic sensitivity and specificity is >99% for both.Molecular- based testing is highly accurate, but as in any laboratorytest, diagnostic errors may occur. All test results must be combin edwith clinical information for the most accurate interpretation. .References:Gurjit Amaya (1996). Clin Lab Med 16:169-186. .Tiara Blake, PhDLatosha Kamara, PhDFelipe Ospina PhDMily Thomas, PhDZayda Figueroa, PhD . Homocyst(e)ine, 8.5 umol/L Comments: PATIENT NOT FASTINGPERFORMED BY: BN [facility] Exycjylcts9519 [facility] [id number] BY: CB [facility] Enmdhb7559 [facility]dez[facility] [id number] BY: TG [facility] 4:02 Plasma (Normal) IGQ1481 [facility] [id number] Range: 0.0-15.0 8-Tyn-161794:02 MTHFR Comments: PATIENT NOT FASTINGPERFORMED BY: BN [facility] H[address]vi[address]dmqi[address] [place] [id number] BY: CB [facility] Bdyugc2994 [place] [place] [id number] BY: TG [facility] YVU[address] [place] [id number] MTHFR, DNA Analysis DUS297 (Normal) Comments: Result: V8085P/O1902O Two copies of the same mutation (H5999B/K2817E) identified .Interpretation: .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 The MTHFR C677T variant was [...] homocysteine. Other riskfactors may be detected thro [facility] systematic clinical laboratoryanalysis.Genetic counselors are available to discuss these results with healthcare providers at [phone]. .Methylenetetrahydrofolate reductase (MTHFR) is a blanc enzyme in thefolate pathway and is responsible for the metabolism of homocysteine.There are two common variants in the MTHFR gene, c.655 C>T(p.Iac611Gjq), referred to as C677T, and c.1286A>C (p.Zwt551Qhz),referred to as T7794F. Individuals homozygous for C677T (two copiesof the variant), have decreased activity of the MTHFR enzyme and apredisposition to hyperhomocysteinemia, particularly when deficient infolate. Hyperhomocysteinemia is a risk factor for venous thrombosisand coronary artery disease and is associated with an increa sed riskof open neural tube defects. The C677T variant does notindependently increase risk of these conditions in the absence ofhyperhomocysteinemia. The E1440U variant is not associated witheleva magui homocysteine levels unless a C677T variant is also present;however, the clinical significance of heterozygosity for both O292Fzfj R7686U is controversial. Population data suggest that these twovaria nts are not present on the same chromosome, but rare exceptionshave been reported of triple variant MTHFR genotypes (ie. homozygousfor one variant and heterozygous for the other). Homozygosity mafL326L has an estimated frequency of 10% to [...] Am J Epidemiol 2000; 151(9):862-877.Sandra MM, Kati SANDY. Arch Pathol Lab Med 2007; 131(6):872-884.Frosst P et al. Nilsa Christine 1995; 10(1):111-113.Hickey SE et al. Christine Med 2013; 15(2):153-156.[place] C et al. Obstet Gynecol 2011; 118(3):730-740.Yo B et al. Eur J Epidemiol 2013; 28(8):621-647. .Tiara Blake, PhDLatosha Kamara, PhDLuzmaria Rogel PhDBritney Cordova, MS, PhDMily Thomas, PhDZayda Figueroa, PhD 0-Thk-370848:02 Protein C Deficiency Comments: PATIENT NOT FASTINGPERFORMED BY: [facility] Fsjzabsafl3653 [facility] [id number] BY: CB [facility] Gqzfso9462 [facility] [id number] BY: TG [facility] Profile ITA0081 [facility] [id number] Protein C-Functional 111 % (Normal) Range: 74-151 Protein C Antigen 82 % (Normal) Range: 70-140 5-Day-179319:02 Protein S Panel Comments: PATIENT NOT FASTINGPERFORMED BY: [employer] [address] [id number] BY: [place] [employer] Wwfzjd3903 [facility] [id number] BY: [employer] JCR2209 ANETTE AbrahamSELECT [facility]TY H[facility] [id number] Protein S-Functional 55 % (Abnormal) Range: 60-145 [...] S, Total 90 % (Normal) Range: 58-150 3-Tnc-950242:29 PTT (Activated Partial Comments: PERFORMED BY: [place] [employer]6370 [facility] [id number] Thromboplastin Time) (61676) aPTT 34 {sec} (Abnormal) Range: 24-33 Comments: This test has not been validated for monitoring unfractionated heparintherapy. aPTT-based therapeutic ranges for unfractionated heparintherapy have not been established. For general guidelines onHeparin monitoring, refer to the [employer] Directory of Services. 2-Qdk-972464:29 PT (Prothrobim Time) (24205) Comments: PERFORMED BY: [place] [employer]6370 [facility] [id number] Prothrombin Time 11.2 {sec} (Normal) Range: 9.1-12.0 INR 1.1 (Normal) Range: 0.8-1.2 Comments: Reference interval is for non-anticoagulated patients. . Suggested INR therapeutic range for Vitamin K anta gonist therapy: Standard Dose (moderate intensity therapeutic range): 2.0 - 3.0 Higher intensity therapeutic range 2.5 - 3.5 6-Ouz-076130:29 METABOLIC PANEL, COMPREHENSIVE Comments: PERFORMED BY: [employer] [place] [id number] (26248) ALT (SGPT) 36 [iU]/L (Abnormal) Range: 0-32 [...] Glucose, Serum 97 mg/dL (Normal) Range: 65-99 6-Lpq-636383:29 CBC W/AUTO DIFF WBC (55967) Comments: PERFORMED BY: [employer] Solutions[employer]ending sale to [facility] [id number] Immature Grans (Abs) 0.0 {x10E3/uL} (Normal) Range: [...] CRITICAL VALUE REPEATED AND VERIFIED. CALLED TO OAEJVNFN45/04/15 0947 Alicja Root.RESULTS READ BACK BY CTJIMENEZ .[facility] [address] [place], [address] D-DIMER QUANT 0.88 {FEU/ug/m} (Abnormal) Range: 0.27-0.49 Comments: D-Dimer ELEVATED (>0.49): Additional studies and clinicalassessments are indicated to conclude diagnosis of:Deep Vein Thrombosis (DVT) or Pulmonary Embolism (PE) 85-Tlv-84992:50 CBC W/Diff, Automated Comments: [facility] [address] [place], [place], [id number] Absolute Lymph 0.85 {X10_3/ul} (Normal) Range: 0.83-4.51 [...] 4.2-5.4 WBC 3.1 K/mm3 (Abnormal) Range: 4.4-11.0 48-Iug-72980:50 EBV Acute Prof IgG / IgM Comments: [facility] (refer to report for specific site)refer to report for address and phone number INTERPRETATION Comment (Normal) Comments: EBV Interpretation ChartInterpretation EBV-IgM EA(D)-IgG VCA-IgG EBNA-IgGEBV Seronegative - - - -Early Phase + - - -Acute Primary + +or- + -InfectionConvalescence/Past - +or- + +InfectionReactivated +or- + + +Infection + Antibody Present - Antibody Ab sentPerformed at: [address] [id number] Director: Desmond Cardoza PhD, Phone: [phone] EB-NAg AyW08569 < 18.0 U/mL (Normal) Range: 0.0-17.9 Comments: Negative <18.0 Equivocal 18.0 - 21.9 Positive >21.9 EB-VCA AgX97708 < 18.0 U/mL (Normal) Range: 0.0-17.9 Comments: Negative <18.0 Equivocal 18.0 - 21.9 Positive >21.9 EB-EA IgG 13479 <9.0 U/mL (Normal) Range: 0.0-8.9 Comments: Negative < 9.0 Equivocal 9.0 - 10.9 Positive >10.9 EB-VCA PdB14501 < 36.0 U/mL (Normal) Range: 0.0-35.9 Comments: [...] Indication: Tendonitis of other site Planned Observations CALCIFEDIOL (02108)Indication: Panic On: 85-Eqj-783579:11 Request VITAMIN B12 AND FOLATES (36139)Indication: Panic On: 70-Crx-399214:11 Request T4, FREE (THYROXINE) (39649)Indication: Panic On: 94-Rca-954550:06 Request T3, FREE (TRIDOTHYRONINE) (02983)Indication: Panic On: 30-Qca-381555: Request TSH (THYROID STIMULATING HORMONE) (68607)Indication: Panic On: 47-Lar-684751:06 Request Factor 2 (Prothrombin) Gene Mutation (06488)Indication: Pulmonary embolism on right On: :09 Request AST (SGOT) (ASPART AMINO TRANSFERASE) (52030)Indication: Elevated liver enzymes On: : Request Protein S Profile (81660)Indication: Pulmonary embolism on right On: : Request Protein C Profile (44095)Indication: Pulmonary embolism on right On: : Request Homocysteine, Plasma (26167)Indication: Pulmonary embolism on right On: : Request Antiphospholipid atb (02063)Indication: Pulmonary embolism on right On: : Request ANTICOAG ANTTHROMB III & ASSAY (33503)Indication: Pulmonary embolism on right On: : Request ANTITHROMBIN III ACTIVTY (65268)Indication: Pulmonary embolism on right On: 20-Twt-244503:04 Request Factor V Leiden (04392)Indication: Pulmonary embolism on right On: :04 Request MTHFR (16339)Indication: Pulmonary embolism on right On: 01-Gdq-983611:04 Request D-Dimer (18100)Indication: Chest pain On: :34 Request CBC WITH MANUAL DIFF (54795)Indication: Fever On: 90-Ytv-25711:49 Request Comments: stat EBV Panel (22448)Indication: Fever On: :49 Request Planned Encounters Medical; Well Woman Exam with PAP - On: 27-May-2018 9:00 [facility] Nicolasa Vasquez DO, DO, Kathleen Planned Procedures Holter Monitor 24 hrsBy: Bart HARRIS, On: 17-May-2018 Intent Tahira Gonzalez Venous Doppler - RightBy: Kae ESTRADA, On: 07-Nov-2015 Intent Chong Comments: history of pulmonary embolism 04/01, off xarelto since 08/31. Travel 1 week ago, now knee and leg and thigh pain.R/O DVT Radiology - Knee - RightBy: Alam On: 07-Nov-2015 Intent Chong ESTRADA VENOUS DOPPLER LOWER EXTREMITY On: 04-Oct-2015 Intent (10059)By: Mary Rose MD Comments: please do BILATERAL LOWER EXTREMITIES Doppler Ultrasound OtherBy: Fast On: 21-Mar-2015 Intent Michelle PORTILLO A Comments: stat call results- legs COMPUTED TOMOGRAPHY ANGIOGRAPHY OF On: 21-Mar-2015 Intent CHEST WITH AND WITHOUT CONTRAST (03248)By: Mary Rose MD Radiology - Wrist - RightBy: On: 17-Sep-2006 Intent Mary Rose MD Instructions Name Dates Details Mitral [...] Instructions Indication: Fever Encounters Office Visit On: 17-May-2018 10:01 Encounter Reason: Follow up ER - Reason for hospitalization note: (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 Note for Follow up ER: 2 weeks ago felt like going to faint and felt dizzi. Went to ER at [facility] had EKG and chest, nor End: [...] I saw still had fever - saw Carlitos started on augmentin and the next day fever gone- - saw maei on thursday - then thursday deve loped pleuritic ??chest pain- delivered in may and has been - - called [facility] thursday with the chest sx [...] trending down - getting sweats- works at [employer] Encounter Diagnosis: Fever, Cough [facility] [...]
--- OUTSIDE RECORDS SUMMARY | 2018-08-09 03:54 | XMS RPT_ITS | Continuity of Care Document ---
:1980 Author Organization [facility] Address [facility] [address] Phone Care Team Providers Name Role Phone [...] old record, does not want antianxiety or jail anxiety med Status: Active Pregnancies () Comments: [...] 12 days.HAs protein S deficiency and [facility].Doppler 3 weeks ago negative.NC [...] vitamin End : 15-Mar-2008 Discontinued PRENATE ELITE, [id number]-MCG-MCG (PO Tab) 1 qd for 0 days [...] Unilateral Completed Comments: 1996 Date Value Details 28-May-2018 Abdomen Complete Result: Comments: See Note; NOTES: [facility] Imaging Services [address] [place] [address] Abdomen Complete MR#: [id number] Acct: [id number] Name: BEAN IGLESIAS Rep #: [id number] : 1980 F 37 From: Pepe Whyte MD PCP: Nicolasa Vasquez DO Status: REG CLI Study: Abdomen Complete Date of Exam: 05/28/18 Exam# [id number] Ordering Dr: Tahira Arriaga INSIDE SALES COORDINATOR-C STUDY: ABDOMINAL ULTRASOUN D REASON FOR EXAM: [...] Service support , CC: Tahira Arriaga NP; Nicolsaa Vasquez DO Fern Cutter: Signed 28-May-2018 Brain/Head without Contrast Result: Comments: See Note; NOTES: [facility] Imaging Services [address] [place] [address] Brain/Head without Contrast MR#: [id number] Acct: [id number] Name: BEAN IGLESIAS Rep #: [id number] : 1980 F 37 From: Pepe Whyte MD PCP: Nicolasa Vasquez DO Status: REG CLI Study: Brain/Head without Contrast Date of Exam: 05/28/18 Exam# [id number] Ordering Dr: Tahira Arriaga INSIDE SALES COORDINATOR-Migel STUD Y: CT BRAIN WITHOUT CONTRAST REASON [...] , Service support , CC: Tahira Arriaga INSIDE SALES COORDINATOR; Nicolasa Vasquez DO Fern Cutter: Signed 20-Feb-2016 PT D/C of Non Returning Pt (1) Result: Comments: See Note; NOTES: [facility] [address] [place], [place] [address] Fax REHABILITATION SERVICES DISCHA RGE SUMMARY MR#: [id number] Acct: [id number] Name: BEAN IGLESIAS Rep #: [id number] [...] - PT Result: Comments: See Note; NOTES: [facility] [address] [place] [address] Fax REHABILITATION SE APARNA INITIAL EVALUATION MR#: [id number] Acct: [id number] Name: BEAN IGLESIAS Rep #: [id number] : 1980 35 From: Yisel Sidhu Referring [...] to be FAXED BACK to us at [phone] for Medicare purposes. Cynthia roldan let me know if there are questions or concerns regarding this plan of care. Physician Signature: Date: <Electronically signed by Yisel Sidhu > 11/20/15 1521 CC: Chong Pal Signed For Medicare only, by signing this I certify the plan of care. Physicians Signature Date 16-Nov-2015 Venous Duplex Lower Extremity Result: Comments: See Note; NOTES: [facility] Cardiovascular Services [address] [place] [address] Venous Duplex US, Unilateral 11/15/15 1311 MR#: [id number] Acct: [id number] Name: BEAN IGLESIAS Rep #: [id number] : 1980 35 From: Constantine Justin MD [...] Dictated: 11/15/15 1311 Date Transcribed: 11/16/15 0242 Fern Cutter: Signed 07-Nov-2015 Knee 4 or More Views Result: Comments: See Note; NOTES: [facility] Imaging Services [address] [place] [address] Verdana 4d Knee 4 or More Views MR#: [id number] Acct: [id number] Name: BEAN IGLESIAS Rep #: [id number] : 1980 F 35 From: David Clark MD PCP: Mary Rose MD Status: REG CLI Study: Knee 4 or More Views Date of Exam: 11/07/15 Exam# [id number] Ordering Dr: Chong Pal STUDY: X-RAY - [...] at 16:53 EDT Tel , Service support [phone], RAD/Knee 4 or More Views IMPRESSION: Small joint effusion. Otherwise normal x-ray examination of the knee. Electronically Signed: David Clark MD, FACR at 16:53 EDT , Service support [phone], CC: Mary Rose MD; Chong Pal Fern Cutter: Signed 19-Oct-2015 Venous Duplex Lower Extremity Result: Comments: See Note; NOTES: [facility] Cardiovascular Services [address] [place] [address] Venous Duplex US - Lorenzo Extrem 10/19/15 1316 MR#: [id number] Acct: [id number] Name: BEAN IGLESIAS Rep #: [id number] : 1980 35 From: Constantine Justin MD [...] Date Dictated: 10/19/15 1316 Date Transcribed: 10/19/15 1352 Fern Cutter: Signed 11-Apr-2015 Chest PA and Lateral Result: Comments: See Note; NOTES: [facility] Imaging Services [address] [place] [address] Verdana 4d Chest PA and Lateral MR#: [id number] Acct: [id number] Name: BEAN IGLESIAS Rep #: [id number] : 1980 F 34 From: Young Garibay PCP: Mary Rose MD Status: REG CLI Study: Chest PA and Lateral Date of Exam: 04/11/15 Exam# [id number] Ordering Dr: Hernandez Hansen MD STUDY: X-RAY [...] DO at 23:48 EST , Service support [phone], RAD/Chest PA and Lateral IMPRESSION: No acute cardiopulmonary disease. Electronically Signed: Young Garibay DO at 23:48 EST T el [phone], Service support [phone], CC: Mary Rose MD; Hernandez Hansen MD Fern Cutter: Signed 21-Mar-2015 CTA Chest W/WO Contrast Result: Comments: See Note; NOTES: [facility] Imaging Services [address] [place] [address] Verdana 4d CTA Chest W/WO Contrast MR#: [id number] Acct: [id number] Name: BEAN BOYER Rep #: [id number] : 1980 F 34 From: Mohan Bray MD PCP: Mary Rose MD Status: REG CLI Study: CTA Chest W/WO Contrast Date of Exam: 03/21/15 Exam# [id number] Ordering Dr: Mary Sepulveda MD STUDY: CTA [...] Mohan Bray MD at 11:52 EST Tel [phone], Service support [phone], CC: Mary Rose MD Fern Cutter: Signed Family History Unknown Family Member Name [...] Status: Active 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 Status: Active Smoking Status Name Dates Details Never smoker Vital Signs Date Test Result Details :46 Temperature 98.1 f Comments: Method: Temporal Pulse [...] kg/m2 Body Surface Area Calculated 1.68 m2 96-Hlr-640065:03 Comments: orthos:sitting- bp 112/70 pulse 98standing- bp [...] 0.00 cm Results Date Description Value Details 9-Die-637955:21 Thyroid Peroxidase 13 {IU/mL} Comments: PATIENT NOT FASTINGPERFORMED BY: [facility] Bngowb7488 [facility] [id number] (TPO) Ab (Normal) Range: 0-34 4-Dzc-663389:21 D-Dimer (94054) Comments: PATIENT NOT FASTINGPERFORMED BY: [employer] [facility] Ybkwiy3424 [facility] [id number] D-Dimer 0.34 {mg/L_FEU} (Normal) Range: 0.00-0.49 Comments: According to the assay ethnographer's published package insert, anormal (<0.50 mg/L FEU) D-dimer result in conjunction with a non-highclinical probability assessment, excludes deep vein thrombosis (D VT)and pulmonary embolism (PE) with high sensitivity. .D-dimer values increase with age and this can make VTE exclusion ofan older pop ulation difficult. To address this, the [place] [employer], based on best available evidence [...] and an80 year old 0.80 mg/L FEU. 5-Htr-557247:21 LDH (LD) (LACTATE DEHYDROGENASE) Comments: PATIENT NOT FASTINGPERFORMED BY: PRX Control SolutionsCorewell [facility] Hospital6370 [facility] [id number] (96451) LDH 134 [iU]/L (Normal) Range: 119-226 3-Tcy-141771:21 CBC, Platelets & Auto Diff Comments: PATIENT NOT FASTINGPERFORMED BY: PRX Control SolutionsJohn J. Pershing Va Medical CenterIktizo3416 [facility] [id number] (52275) Immature Grans (Abs) 0.0 {x10E3/uL} (Normal) Range: [...] 3.77-5.28 WBC 4.9 {x10E3/uL} (Normal) Range: 3.4-10.8 3-Nnf-248607:21 GONADOTROPIN-LH (19412) Comments: PATIENT NOT FASTINGPERFORMED BY: LabCorewell [facility] Hospital6370 [facility] [id number] LH 2.9 m[iU]/mL (Normal) Comments: Adult Female: Follicular phase 2.4 - 12.6 Ovulation phase 14.0 - 95.6 Luteal phase 1.0 - 11.4 Postmenopausal 7.7 - 58.5 0-Wpm-092820:21 GONADOTROPIN-FSH (27413) Comments: PATIENT NOT FASTINGPERFORMED BY: LabCorewell [facility] Hospital6370 [facility] [id number] FSH 3.7 m[iU]/mL (Normal) Comments: Adult Female: Follicular phase 3.5 - 12.5 Ovulation phase 4.7 - 21.5 Luteal phase 1.7 - 7.7 Postmenopausal 25.8 - 134.8 9-Vcr-613155:19 CBC W/Diff, Automated Comments: [facility] [address] [place], [place], [address] Absolute Lymph 0.67 {X10_3/ul} (Abnormal) Range: 0.83-4.51 [...] 4.2-5.4 WBC 5.3 K/mm3 (Normal) Range: 4.4-11.0 :58 CALCIFEDIOL (11964) Comments: PERFORMED BY: [employer] [facility] [id number] Vitamin D, 25-Hydroxy 27.5 ng/mL (Abnormal) Range: 30.0-100.0 Comments: Vitamin D deficiency has been defined by the [place] of[place]icine and an Endocrine Society practice guideline as alevel of serum 25-OH vitamin D less than 20 ng/mL (1,2).The Endocrine Society went on to further define vitamin Dinsufficiency as a level between 21 and 29 ng/mL (2).1. IOM ([place] of Medicine). 2010. Dietary reference intakes for calcium and D. [place]: The National Academies Press.2. Nitza MF, Shena NC, Miguelito PATHAK, et al. Evaluation, treatment, and prevention of vitamin D deficiency: an Endocrine Society clinical practice guideline. JCEM. 2010; 96(7):1911-30. 06-Fss-415603:58 VITAMIN B12 AND FOLATES Comments: PERFORMED BY: [employer] Lkdgxj1152 [facility] [id number] (31109) Folate (Folic Acid), Serum 19.1 ng/mL (Normal) Comments: A serum folate concentration of less than 3.1 ng/mL isconsidered to represent clinical deficiency. Vitamin B12 680 pg/mL (Normal) Range: 232-1245 93-Flx-400885:58 T4, FREE (THYROXINE) (68813) Comments: PERFORMED BY: [facility]6370 [facility] [id number] T4,Free(Direct) 1.64 ng/dL (Normal) Range: 0.82-1.77 47-Vej-587418:58 T3, FREE (TRIDOTHYRONINE) (89821) Comments: PERFORMED BY: [facility]6370 [facility] [id number] Triiodothyronine (T3), Free 2.9 pg/mL (Normal) Range: 2.0-4.4 98-Azz-045027:58 TSH (THYROID STIMULATING Comments: PERFORMED BY: [facility]6370 [facility] [id number] HORMONE) (36932) TSH 0.861 {uIU/mL} (Normal) Range: 0.450-4.500 88-Aiv-570061:46 Blood Glucose , Office (82503) Blood Glucose , Office 93 (Normal) 56-Zlk-636208:16 CBC W/Diff, Auto - EPLAB Comments: At [facility] Outpatient [facility] Medical Oncologypatients receive CBC w/auto Differential ONLY. Physicianwill place an order for a manual differential or Pathologistreview at his discretion. [facility] OUTPATIENT [facility]. [address] [place] [address] [address] GALVANOMETER ASSEMBLER: KARLA HNERY DO PH:[phone] Hospital Pxheeblqig[address] [place], [place], [address] ; managed by Dr. Tito Pal Absolute [...] 3.9 K/mm3 (Abnormal) Range: 4.4-11.0 :53 D-Dimer (94038) Comments: copy to Dr. Pla; PATIENT NOT FASTINGPERFORMED BY: [employer] [facility] [id number] BY: [employer] Ytnlin5140 [facility] [id number] D-Dimer 0.43 {mg/L_FEU} (Normal) Range: 0.00-0.49 Comments: According to the assay ethnographer's published package insert, anormal (<0.50 mg/L FEU) D-dimer result in conjunction with a non-highclinical probability assessment, excludes deep vein thrombosis (D VT)and pulmonary embolism (PE) with high sensitivity. .D-dimer values increase with age and this can make VTE exclusion ofan older pop ulation difficult. To address this, the [place] [employer], based on best available evidence [...] to Dr. Pal; PATIENT NOT FASTINGPERFORMED BY: [facility] [id number] BY: PR[facility] Control SolutionsWestern [facility] Fnxvqr8720 [facility] [id number] (50315) al Information: A69420, DRAW FEE 518305 Protein S-Functional 63 % (Normal) Range: 60-145 Protein S, Free 59 % (Normal) Range: 56-124 Protein S, Total 91 % (Normal) Range: 58-150 89-Hfe-483718:53 LDH (LD) (LACTATE Comments: copy to Dr. Pal; PATIENT NOT FASTINGPERFORMED BY: [employer] [id number] BY: LabWestern [facility] Wqfptw2871 [facility] [id number] DEHYDROGENASE) (92932) LDH 132 [iU]/L (Normal) Range: 119-226 :56 URIC ACID BLOOD (50900) Comments: copy to Dr. Pal; PATIENT NOT FASTINGPERFORMED BY: LabCorewell [facility] Hospital6370 [facility] [id number] Uric Acid, Serum 4.0 mg/dL (Normal) Range: 2.5-7.1 Comments: Therapeutic target for gout patients: <6.0 :56 CBC WITH MANUAL DIFF Comments: copy to Dr. Pal; PATIENT NOT FASTINGPERFORMED BY: ProtoShareCapital [facility] System [facility])Kuzqpt6470 [facility] [id number] Information: [id number] (48518) Immature Grans (Abs) 0.0 {x10E3/uL} (Normal) Range: [...] 3.77-5.28 WBC 4.3 {x10E3/uL} (Normal) Range: 3.4-10.8 75-Ncn-674276:56 Metabolic Panel, Comprehensive Comments: copy to Dr. Pal; PATIENT NOT FASTINGPERFORMED BY: LabCoCapital Health System [facility])Cyanzy4899 [facility] [id number] (75676) ALT (SGPT) 24 [iU]/L (Normal) Range: 0-32 [...] Glucose, Serum 96 mg/dL (Normal) Range: 65-99 32-Vby-630990:21 Protein S Profile Comments: PATIENT NOT FASTINGPERFORMED BY: LabCo[address] [id number] Information: 267450,D50728 (97222) Protein S-Functional 54 % (Abnormal) Range: 60-145 [...] S, Total 91 % (Normal) Range: 58-150 3-Vjr-820809:02 Anticardiolip Ab, IgA/G/M, Comments: PATIENT NOT FASTINGPERFORMED BY: [employer] [id number] BY: [employer]70 MeléndezWestern Missouri Mental Health Center [id number] BY: LabticketscriptPrisma Health Baptist Parkridge Hospitaln JJL3588 [facility] [id number] Anticardiolipin Ab,IgA,Qn <9 {APL_U/mL} (Normal) Range: 0-11 [...] Positive: >20 - 80 High Positive: >80 8-Jue-106169:02 Antithrombin III, Comments: PATIENT NOT FASTINGPERFORMED BY: [employer] [id number] BY: [employer] Mphqgg2561 [facility] [id number] BY: [facility]Co Func/Immunol XUQ5081 [facility] [id number] Antithrombin Antigen 98 % (Normal) Range: 75-130 Antithrombin Activity 104 % (Normal) Range: 75-135 AST (SGOT) 27 [iU]/L (Normal) Comments: PATIENT NOT FASTINGPERFORMED BY: BN [facility] Hidphejchn2122 [facility] [id number] BY: CB [facility] Wyaars2841 [facility] [id number] BY: TG [facility] : UVL7772 Malachi AbrahamHAVEN [facility] [id number] Range: 0-40 Factor II, DNA Analysis FIING2 (Normal) Comments: PATIENT NOT FASTINGPERFORMED BY: BN [facility] Uimawzkgnc1595 [facility] [id number] BY: CB [facility] Ovuxmm4619 [facility] [id number] BY: TG [facility] : MQD8099 Malachi AbrahamHAVEN [facility] [id number] Comments: NEGATIVENo mutation identified. .Comment:A point mutation ([id number]) in the factor II (prothrombin) gene is thesecond most common cause of inherited thrombophilia. The incidence ofthis mutation in the [place] population is about 2% and in theAfrican [place] population it is approximately 0.5%. This mutation [...] mutations.This assay detects only the prothrom bin I30814B mutation and doesnot measure genetic abnormalities elsewhere in the genome. Otherthrombotic risk factors may be pursued through systematic clinicallaboratory analysis. These factors include the R506Q (Leiden)mutation in the Factor V gene, plasma homocysteine levels, as wellas testing for deficiencies of antithrombin III, protein C andprotein S.Genetic Counselors are available for health [facility] providersto discuss results at [phone] ([phone]). .Methodology:DNA analysis of the Factor II gene was performed by PCRamplification follow ed by restriction analysis. Thediagnostic sensitivity is >99% for both. All the tests mustbe combined with clinical information for the most accurateinterpretation. Molecular-based testing is highly accurate,but as in any laboratory test, diagnostic errors may occur. .Poort SR, et al. Blood. 1996; 88:1621-4454.Luciana EA. Circulation. 2004; 110 :e15-e18.Cesar I, et al. Arterioscler Thromb Vasc Biol. 1999;19:700-703. .Tiara Blake, Zeferino Kamara, PhDLuzmaria Rogel, PhDJessie Cordova, PhDMily Thomas, PhDZayda Figueroa, PhD . 5-Elj-841322:02 Factor V Leiden Mutation Comments: PATIENT NOT FASTINGPERFORMED BY: BN [facility] Bllrmthhvt2631 [facility] [id number] BY: CB [facility] Rhqzae8856 [facility] [id number] BY: TG [facility] UMV9021 [facility] [id number] Factor V Leiden FVNEG3 (Normal) Comments: Result: [...] in the workup for venous thrombosis include swjU19358G mutation in the factor II (prothrombin) gene,protein S and C deficiency, and antithromb in deficiencies.Anticardiolipin antibody and lupus anticoagulant analysismay be appropriate for certain patients, as well ashomocysteine levels. .Contact your local [facility] for information on how to orderadditional testing if desired. .Genetic counselors are available for health care p kimberly to discuss results at [phone] (1302). .Methodology:DNA analysis of the Factor V gene was performed by allele-specific PCR. The diagnostic sensitivity and specificity is >99% for both.Molecular- based testing is highly accurate, but as in any laboratorytest, diagnostic errors may occur. All test results must be combin edwith clinical information for the most accurate interpretation. .References:Gurjit Amaya (1995). Clin Lab Med 16:169-186. .Tiara Blake, PhDLatosha Kamara, PhDLuzmaria Rogel, PhDBritney Cordova, PhDMily Thomas, PhDZayda Figueroa, PhD . Homocyst(e)ine, 8.5 umol/L Comments: PATIENT NOT FASTINGPERFORMED BY: [facility]Co[address] [id number] BY: LabCoCapital Health System [facility])Kmuubx9962 [facility] [id number] BY: LabWestern [facility] Center 4:02 Plasma (Normal) UHH5464 [facility] [id number] Range: 0.0-15.0 6-Qvh-383964:02 MTHFR Comments: PATIENT NOT FASTINGPERFORMED BY: LabCo[address] [id number] BY: PRX Control SolutionsCorewell Health [facility] Hospital6370 [facility] [id number] BY: LabWestern [facility] EUQ1413 [facility] [id number] MTHFR, DNA Analysis UCV870 (Normal) Comments: Result: J0629R/O7059X Two copies of the same mutation (T8113M/H3248J) identified .Interpretation: .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 The MTHFR C677T variant was [...] homocysteine. Other riskfactors may be detected thro thedac[facility] systematic clinical laboratoryanalysis.Genetic counselors are available to discuss these results with healthcare providers at [phone]. .Methylenetetrahydrofolate reductase (MTHFR) is a blanc enzyme in thefolate pathway and is responsible for the metabolism of homocysteine.There are two common variants in the MTHFR gene, c.655 C>T(p.Xgv496Ora), referred to as C677T, and c.1286A>C (p.Sbb365Xdr),referred to as K1395G. Individuals homozygous for C677T (two copiesof the variant), have decreased activity of the MTHFR enzyme and apredisposition to hyperhomocysteinemia, particularly when deficient infolate. Hyperhomocysteinemia is a risk factor for venous thrombosisand coronary artery disease and is associated with an increa sed riskof open neural tube defects. The C677T variant does notindependently increase risk of these conditions in the absence ofhyperhomocysteinemia. The M5792G variant is not associated witheleva magui homocysteine levels unless a C677T variant is also present;however, the clinical significance of heterozygosity for both M933Yjge R6103A is controversial. Population data suggest that these twovaria nts are not present on the same chromosome, but rare exceptionshave been reported of triple variant MTHFR genotypes (ie. homozygousfor one variant and heterozygous for the other). Homozygosity ighJ216D has an estimated frequency of 10% to [...] clinical information for the most accurateinterpretation. .Leander ANG, David Q. Am J Epidemiol 2000; 151(9):862-877.Sandra MM, Kati JA. Arch Pathol Lab Med 2007; 131(6):872-884.Frosst P et al. Nilsa Christine 1995; 10(1):111-113.Hickey SE et al. Christine Med 2013; 15(2):153-156.[place] C et al. Obstet Gynecol 2011; 118(3):730-740.Yo B et al. Eur J Epidemiol 2013; 28(8):621-647. .Tiara Blake, PhDLatosha Kamara, PhDLuzmaria Rogel, PhDBritney Cordova MS, PhDMily Thomas, PhDZayda Figueroa, PhD 3-Apv-687826:02 Protein C Deficiency Comments: PATIENT NOT FASTINGPERFORMED BY: [employer] LabAxikin PharmaceuticalsXqsazqgvqu[address] [id number] BY: [employer] Crtfyu0799 [facility] [id number] BY: [employer] [facility] BPS9728 [facility] [id number] Protein C-Functional 111 % (Normal) Range: 74-151 Protein C Antigen 82 % (Normal) Range: 70-140 2-Uju-247523:02 Protein S Panel Comments: PATIENT NOT FASTINGPERFORMED BY: [employer] [facility] Sgylyylptp6270 [facility] [id number] BY: [employer] Hveiuf6544 Mel[address] [facility] [id number] BY: [employer] DWR6348 [facility] [id number] Protein S-Functional 55 % (Abnormal) Range: 60-145 [...] S, Total 90 % (Normal) Range: 58-150 :29 PTT (Activated Partial Comments: PERFORMED BY: [place] [facility]toShareCapital Health System [facility])Iirphp6779 [facility] [id number] Thromboplastin Time) (70414) aPTT 34 {sec} (Abnormal) Range: 24-33 Comments: This test has not been validated for monitoring unfractionated heparintherapy. aPTT-based therapeutic ranges for unfractionated heparintherapy have not been established. For general guidelines onHeparin monitoring, refer to the PRX Control SolutionsWestern [facility] Mental [facility] Center Directory of Services. 5-Wdo-837953:29 PT (Prothrobim Time) (31095) Comments: PERFORMED BY: [place] [facility]ShareCapital [facility]Pdalpo9111 [facility] [id number] Prothrombin Time 11.2 {sec} (Normal) Range: 9.1-12.0 INR 1.1 (Normal) Range: 0.8-1.2 Comments: Reference interval is for non-anticoagulated patients. . Suggested INR therapeutic range for Vitamin K anta gonist therapy: Standard Dose (moderate intensity therapeutic range): 2.0 - 3.0 Higher intensity therapeutic range 2.5 - 3.5 :29 METABOLIC PANEL, COMPREHENSIVE Comments: PERFORMED BY: [place] [employer] Rjjoif9264 [facility] [id number] (82167) ALT (SGPT) 36 [iU]/L (Abnormal) Range: 0-32 [...] Glucose, Serum 97 mg/dL (Normal) Range: 65-99 4-Axw-180232:29 CBC W/AUTO DIFF WBC (93290) Comments: PERFORMED BY: LabCoCapital Health System [facility])Kftowr8600 [facility] [id number] Immature Grans (Abs) 0.0 {x10E3/uL} (Normal) Range: [...] CRITICAL VALUE REPEATED AND VERIFIED. CALLED TO NYQCNJZP43/04/15 0947 Alicja Root.RESULTS READ BACK BY MILAGROS .[facility] [address] [place], [place], [id number] D-DIMER QUANT 0.88 {FEU/ug/m} (Abnormal) Range: 0.27-0.49 Comments: D-Dimer ELEVATED (>0.49): Additional studies and clinicalassessments are indicated to conclude diagnosis of:Deep Vein Thrombosis (DVT) or Pulmonary Embolism (PE) :50 CBC W/Diff, Automated Comments: [facility] [id number] [facility] [address] [place], [address] Absolute Lymph 0.85 {X10_3/ul} (Normal) [...] 4.2-5.4 WBC 3.1 K/mm3 (Abnormal) Range: 4.4-11.0 64-Aiw-56588:50 EBV Acute Prof IgG / IgM Comments: [facility] (refer to report for specific site)refer to report for address and phone number INTERPRETATION Comment (Normal) Comments: EBV Interpretation ChartInterpretation EBV-IgM EA(D)-IgG VCA-IgG EBNA-IgGEBV Seronegative - - - -Early Phase + - - -Acute Primary + +or- + -InfectionConvalescence/Past - +or- + +InfectionReactivated +or- + + +Infection + Antibody Present - Antibody Ab sentPerformed at: [facility] [address] [id number] Director: Desmond Cardoza PhD, Phone: [phone] EB-NAg [id number] < 18.0 U/mL (Normal) Range: 0.0-17.9 Comments: Negative <18.0 Equivocal 18.0 - 21.9 Positive >21.9 EB-VCA [id number] < 18.0 U/mL (Normal) Range: 0.0-17.9 Comments: Negative <18.0 Equivocal 18.0 - 21.9 Positive >21.9 EB-EA IgG [id number] <9.0 U/mL (Normal) Range: 0.0-8.9 Comments: Negative < 9.0 Equivocal 9.0 - 10.9 Positive >10.9 EB-VCA [id number] < 36.0 U/mL (Normal) Range: 0.0-35.9 Comments: [...] of other site Planned Observations LIPID PANEL ([id number])Indication: Abdominal aortic atherosclerosis On: 76-Mii-88713:16 Request Anti-TPO Antibody ([id number])Indication: Panic On: 24-May-20189:40 Request CBC, PLATELETS & AUT DIFF ([id number])Indication: Lymphopenia On: 1-Vut-553016:54 Request CBC, Platelets & Auto Diff (07576)Indication: Lymphopenia On: 08-Wnb-855934:31 Request Comments: PlEASE DO Peripheral smear send to pathology PT has had lymphopenia Factor 2 (Prothrombin) Gene Mutation ([id number])Indication: Pulmonary embolism on right On: 20-Vat-410031:09 Request AST (SGOT) (ASPART AMINO TRANSFERASE) ([id number])Indication: Elevated liver enzymes On: :06 Request Protein S Profile ([id number])Indication: Pulmonary embolism on right On: :04 Request Protein C Profile ([id number])Indication: Pulmonary embolism on right On: :04 Request Homocysteine, Plasma (15761)Indication: Pulmonary embolism on right On: :04 Request Antiphospholipid atb (46852)Indication: Pulmonary embolism on right On: : Request ANTICOAG ANTTHROMB III & ASSAY ([id number])Indication: Pulmonary embolism on right On: :04 Request ANTITHROMBIN III ACTIVTY ([id number])Indication: Pulmonary embolism on right On: 53-Yjl-585567:04 Request Factor V Leiden (53316)Indication: Pulmonary embolism on right On: :04 Request MTHFR ([id number])Indication: Pulmonary embolism on right On: :04 Request D-Dimer ([id number])Indication: Chest pain On: :34 Request CBC WITH MANUAL DIFF ([id number])Indication: Fever On: 97-Jsv-64553:49 Request Comments: stat EBV Panel ([id number])Indication: Fever On: 97-Nuz-30120:49 Request Planned Encounters Medical; Other symptoms - foggy, weak, lost 10 pounds, pt has list On: 07-Jun-2018 13:15 [facility] Nicolasa Vasquez DO, DO, Kathleen Planned Procedures Ultrasound - Abdomen Complete & [...] VENOUS DOPPLER LOWER EXTREMITY On: 04-Oct-2015 Intent ([id number])By: Mary Rose MD Comments: please do BILATERAL LOWER EXTREMITIES Doppler Ultrasound OtherBy: Fast On: 21-Mar-2015 Intent Michelle PORTILLO Comments: stat call results- legs COMPUTED TOMOGRAPHY ANGIOGRAPHY OF On: 21-Mar-2015 Intent CHEST WITH AND WITHOUT CONTRAST ([id number])By: Mary Rose MD Radiology - Wrist - [...] Instructions Indication: Fever Encounters Lab Order On: 31-May-2018 9:15 Encounter Diagnosis: [...] and felt dizzi. Went to ER at [facility] had EKG and chest, nor End: [...] I saw still had fever - saw Anthony started on augmentin and the next day fever gone- - saw anthony on thursday - then thursday devcarlos jamir pleuritic ??chest pain- delivered in may and has been - - called rowena thursday with the chest sx - they [...] trending down - getting sweats- works at [employer] Encounter Diagnosis: Fever, Cough [facility] [...]
--- OUTSIDE RECORDS SUMMARY | 2018-08-09 03:54 | XMS RPT_ITS | Continuity of Care Document ---
:1980 Author Organization [facility] Address [address] [place] [address] Phone Care Team Providers Name Role Phone [...] 12 days.HAs protein S deficiency and [facility].Doppler 3 weeks ago negative.NC [...] vitamin End : 15-Mar-2008 Discontinued PRENATE ELITE, 14-350-513IF-MCG-MCG (PO Tab) 1 qd for 0 days [...] Pt (1) Result: Comments: See Note; NOTES: [facility] [address] [place] [address]. [address] [place] [address] Fax REHABILITATION SERVICES DISCHA RGE SUMMARY MR#: [id number] Acct: [id number] Name: ESPERANZA IGLESIAS Rep #: [id number] [...] - PT Result: Comments: See Note; NOTES: [facility] [address] [place] [address]. [address] [place] [address] Fax REHABILITATION SE RVICES INITIAL EVALUATION MR#: [id number] Acct: [id number] Name: ESPERANZA IGLESIAS Rep #: [id number] : 1980 35 From: Yisel Sidhu Referring Dr.: Chong Pal Status: REG RCR Insurance: SELF PAY INSURANCE Patient's Visit Information ESPERANZA IGLESIAS is a 35 year old F referred to Physical Therapy by Chong Pal with a diagnosis of Right Knee Pain. Date of Evaluation: 11/20/15 Physical Therapist: Yiesl Sidhu - Visit Plan Frequency: 1x/Week Duration: [...] to be FAXED BACK to us at [phone] for Medicare purposes. Cynthia se let me know if there are questions or concerns regarding this plan of care. Physician Signature: Date: <Electronically signed by Yisel Sidhu > 11/20/15 1521 CC: Chong Pal Signed For Medicare only, by signing this I certify the plan of care. Physicians Signature Date 16-Nov-2015 Venous Duplex Lower Extremity Result: Comments: See Note; NOTES: [facility] Cardiovascular Services [address] [place] [address] Venous Duplex US, Unilateral 11/15/15 1311 MR#: [id number] Acct: [id number] Name: ESPERANZA IGLESIAS Rep #: [id number] : 1980 35 From: Constantine Justin MD [...] Dictated: 11/15/15 1311 Date Transcribed: 11/16/15 0242 Distributor Of Directories: Signed 07-Nov-2015 Knee 4 or More Views Result: Comments: See Note; NOTES: [facility] Imaging Services [address] [place] [address] Verdana 4d Knee 4 or More Views MR#: [id number] Acct: [id number] Name: ESPERANZA IGLESIAS Rep #: [id number] : 1980 F 35 From: David Clark MD PCP: Mary Rose MD Status: REG CLI Study: Knee 4 or More Views Date of Exam: 11/07/15 Exam# [id number] Ordering Dr: Chong Pal STUDY: X-RAY - [...] at 16:53 EDT Tel , Service support [phone], RAD/Knee 4 or More Views IMPRESSION: Small joint effusion. Otherwise normal x-ray examination of the knee. Electronically Signed: David Clark MD, FACR at 16:53 EDT , Service support [phone], CC: Mary Rose MD; Chong Pal Distributor Of Directories: Signed 19-Oct-2015 Venous Duplex Lower Extremity Result: Comments: See Note; NOTES: [facility] Cardiovascular Services [address] [place] [address] Venous Duplex US - Lorenzo Extrem 10/19/15 1316 MR#: [id number] Acct: [id number] Name: ESPERANZA IGLESIAS Rep #: [id number] : 1980 35 From: Constantine Justin MD [...] Dictated: 10/19/15 1316 Date Transcribed: 10/19/15 1355 Distributor Of Directories: Signed 11-Apr-2015 Chest PA and Lateral Result: Comments: See Note; NOTES: [facility] Imaging Services [address] [place] [address] [place] 4d Chest PA and Lateral MR#: [id number] Acct: [id number] Name: ESPERANZA IGLESIAS Rep #: [id number] : 1980 F 34 From: Young Garibay PCP: Mary Rose MD Status: REG CLI Study: Chest PA and Lateral Date of Exam: 04/11/15 Exam# [id number] Ordering Dr: Hernandez Hansen MD STUDY: X-RAY [...] DO at 23:48 EST , Service support [phone], RAD/Chest PA and Lateral IMPRESSION: No acute cardiopulmonary disease. Electronically Signed: Young Garibay DO at 23:48 EST T el [phone], Service support [phone], CC: Mary Rose MD; Hernandez Hansen MD Distributor Of Directories: Signed 21-Mar-2015 CTA Chest W/WO Contrast Result: Comments: See Note; NOTES: [facility] Imaging Services [address] [place] [address] Verdana 4d CTA Chest W/WO Contrast MR#: [id number] Acct: [id number] Name: ESPERANZA BOYER Rep #: [id number] : 1980 F 34 From: Mohan Bray MD PCP: Mary Rose MD Status: REG CLI Study: CTA Chest W/WO Contrast Date of Exam: 03/21/15 Exam# [id number] Ordering Dr: Mary Sepulveda MD STUDY: CTA [...] Mohan Bray MD at 11:52 EST Tel [phone], Service support [phone], CC: Mary Rose MD Distributor Of Directories: Signed Family History Unknown Family Member Name Dates Details Father Comments: blood clot in lung after leg surgery Status: Active First Degree Relatives Comments: Colon & liver cancer - Uncle Status: Active Social History Name Dates Details Current Work/Study Status Comments: 2 days a week @ [employer] Status: Active Exercise History Comments: [place] 1/2 hr QOD Status: Active Living Situation Comments: , Lives with spouse Status: Active 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 Status: Active Smoking Status Name Dates Details Never smoker Vital Signs Date Test Result Details 24-Snw-115967:03 Comments: orthos:sitting- bp 112/70 pulse 98standing- bp [...] 0.00 cm Results Date Description Value Details 81-Ndz-180931:46 Blood Glucose , Office (67814) Blood Glucose , Office 93 (Normal) 32-Mkr-300844:16 CBC W/Diff, Auto - EPLAB Comments: At [facility] Medical Oncologypatients receive CBC w/auto Differential ONLY. Physicianwill place an order for a manual differential or Pathologistreview at his discretion. [facility]. [address] [place] [address] [address] RAIL LOADER: KARLA HENRY DO PH:[phone] [address] [place], [place], [id number] ; managed by Dr. Tito Pal Absolute [...] 3.9 K/mm3 (Abnormal) Range: 4.4-11.0 :53 D-Dimer (96541) Comments: copy to Dr. Pal; PATIENT NOT FASTINGPERFORMED BY: [facility] [address] [id number] BY: [facility] [address] [id number] D-Dimer 0.43 {mg/L_FEU} (Normal) Range: 0.00-0.49 Comments: According to the assay surveyor hydrographic's published package insert, anormal (<0.50 mg/L FEU) D-dimer result in conjunction with a non-highclinical probability assessment, excludes deep vein thrombosis (D VT)and pulmonary embolism (PE) with high sensitivity. .D-dimer values increase with age and this can make VTE exclusion ofan older pop ulation difficult. To address this, the [employer], based on best available evidence [...] to Dr. Pal; PATIENT NOT FASTINGPERFORMED BY: [facility] [id number] BY: [employer] [facility] [id number] (09929) al Information: [id number], DRAW FEE 449403 Protein S-Functional 63 % (Normal) Range: 60-145 Protein S, Free 59 % (Normal) Range: 56-124 Protein S, Total 91 % (Normal) Range: 58-150 :53 LDH (LD) (LACTATE Comments: copy to Dr. Pal; PATIENT NOT FASTINGPERFORMED BY: [facility] [id number] BY: [employer] Zsoefo4528 [facility] [id number] DEHYDROGENASE) (64880) LDH 132 [iU]/L (Normal) Range: 119-226 :56 URIC ACID BLOOD (10252) Comments: copy to Dr. Pal; PATIENT NOT FASTINGPERFORMED BY: [employer]70 [facility] [id number] Uric Acid, Serum 4.0 mg/dL (Normal) Range: 2.5-7.1 Comments: Therapeutic target for gout patients: <6.0 :56 CBC WITH MANUAL DIFF Comments: copy to Dr. Pal; PATIENT NOT FASTINGPERFORMED BY: [employer] Vkhciy3151 [facility] [id number] Information: [id number] (19844) Immature Grans (Abs) 0.0 {x10E3/uL} (Normal) Range: [...] to Dr. Pal; PATIENT NOT FASTINGPERFORMED BY: LabMcl[facility] Region6370 [facility] [id number] (69434) ALT (SGPT) 24 [iU]/L (Normal) Range: 0-32 [...] Glucose, Serum 96 mg/dL (Normal) Range: 65-99 03-Kaa-118934:21 Protein S Profile Comments: PATIENT NOT FASTINGPERFORMED BY: [facility] [address] [id number] Information: [id number] (23115) Protein S-Functional 54 % (Abnormal) Range: 60-145 [...] S, Total 91 % (Normal) Range: 58-150 3-Jvw-933381:02 Anticardiolip Ab, IgA/G/M, Comments: PATIENT NOT FASTINGPERFORMED BY: BN [facility] Epdklhvgfk3518 [facility] [id number] BY: CB [facility] Ctlghj9125 [facility] [id number] BY: TG [facility] Qn LFF3393 [facility] [id number] Anticardiolipin Ab,IgA,Qn <9 {APL_U/mL} (Normal) Range: 0-11 [...] Positive: >20 - 80 High Positive: >80 9-Ezg-086052:02 Antithrombin III, Comments: PATIENT NOT FASTINGPERFORMED BY: [facility] [address] [id number] BY: CB [facility] Ciykce5890 [address] Road[address] [place] [id number] BY: TG [facility] Func/Immunol FKV2060 [facility] [id number] Antithrombin Antigen 98 % (Normal) Range: 75-130 Antithrombin Activity 104 % (Normal) Range: 75-135 AST (SGOT) 27 [iU]/L (Normal) Comments: PATIENT NOT FASTINGPERFORMED BY: BN [facility] Zdepwehupf[address] [id number] BY: CB [facility] Rujyrf7984 [address] [facility] RegionDuAt[facility] [id number] BY: TG [facility] : USP6800 [facility] [id number] Range: 0-40 Factor II, DNA Analysis FIING2 (Normal) Comments: PATIENT NOT FASTINGPERFORMED BY: [facility] [address] [id number] BY: CB [facility] Bzpgvs8395 [address] [facility] [id number] BY: TG [facility] :02 PRK2601 [facility]JE[facility] [id number] Comments: NEGATIVENo mutation identified. .Comment:A point mutation (E05320Q) in the factor II (prothrombin) gene is thesecond most common cause of inherited thrombophilia. The incidence ofthis mutation in the [place] population is about 2% and in theAfrican [place] population it is approximately 0.5%. This mutation [...] mutations.This assay detects only the prothrom bin E68613J mutation and doesnot measure genetic abnormalities elsewhere in the genome. Otherthrombotic risk factors may be pursued through systematic clinicallaboratory analysis. These factors include the R506Q (Leiden)mutation in the Factor V gene, plasma homocysteine levels, as wellas testing for deficiencies of antithrombin III, protein C andprotein S.Genetic Counselors are available for health [facility] providersto discuss results at [phone]). .Methodology:DNA analysis of the Factor II gene was performed by PCRamplification follow ed by restriction analysis. Thediagnostic sensitivity is >99% for both. All the tests mustbe combined with clinical information for the most accurateinterpretation. Molecular-based testing is highly accurate,but as in any laboratory test, diagnostic errors may occur. .Poort SR, et al. Blood. 1996; 88:1299-0000.Luciana EA. Circulation. 2004; 110 :e15-e18.Cesar I, et al. Arterioscler Thromb Vasc Biol. 1999;19:700-703. .Tiara Blake, Zeferino Kamara, PhDLuzmaria Rogel, PhDGibson Watson, PhDZayda Figueroa, PhD . 8-Odm-188313:02 Factor V Leiden Mutation Comments: PATIENT NOT FASTINGPERFORMED BY: BN [facility] Bdmuqdtnwa3180 [facility] [id number] BY: CB [facility] Hgqxvk8278 [facility] [id number] BY: TG [facility] IBK8475 [facility] [id number] Factor V Leiden FVNEG3 (Normal) Comments: Result: [...] in the workup for venous thrombosis include dvcN71685W mutation in the factor II (prothrombin) gene,protein S and C deficiency, and antithromb in deficiencies.Anticardiolipin antibody and lupus anticoagulant analysismay be appropriate for certain patients, as well ashomocysteine levels. .Contact your local [facility] for information on how to orderadditional testing if desired. .Genetic counselors are available for health care ryder harris to discuss results at [phone] ([phone]). .Methodology:DNA analysis of the Factor V gene was performed by allele-specific PCR. The diagnostic sensitivity and specificity is >99% for both.Molecular- based testing is highly accurate, but as in any laboratorytest, diagnostic errors may occur. All test results must be combin edwith clinical information for the most accurate interpretation. .References:Gurjit Amaya (1996). Clin Lab Med 16:169-186. .Tiara Blake, PhDLatosha Kamara, PhDFelipe Ospina, PhDMily Thomas, PhDZayda Figueroa, PhD . Homocyst(e)ine, 8.5 umol/L Comments: PATIENT NOT FASTINGPERFORMED BY: BN [facility] Dwkahyygix7162 [facility] [id number] BY: CB [facility] Evhjwm3172 [facility] [id number] BY: TG [facility] 4:02 Plasma (Normal) JQP1754 [facility] [id number] Range: 0.0-15.0 2-Lms-415587:02 MTHFR Comments: PATIENT NOT FASTINGPERFORMED BY: BN [facility] Fwttlmgofw6501 [address] [place] [id number] BY: CB [facility] Mprnlu8595 [address] [place] [id number] BY: TG [facility] WJO8090 [address] Garcia [place] [id number] MTHFR, DNA Analysis JCT636 (Normal) Comments: Result: I9066L/M0757H Two copies of the same mutation (U6389O/V9541S) identified .Interpretation: .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 The MTHFR C677T variant was [...] homocysteine. Other riskfactors may be detected thro [facility] systematic clinical laboratoryanalysis.Genetic counselors are available to discuss these results with healthcare providers at [phone]. .Methylenetetrahydrofolate reductase (MTHFR) is a blanc enzyme in thefolate pathway and is responsible for the metabolism of homocysteine.There are two common variants in the MTHFR gene, c.655 C>T(p.Fvr352Wqs), referred to as C677T, and c.1286A>C (p.Wmb178Rzx),referred to as J1387F. Individuals homozygous for C677T (two copiesof the variant), have decreased activity of the MTHFR enzyme and apredisposition to hyperhomocysteinemia, particularly when deficient infolate. Hyperhomocysteinemia is a risk factor for venous thrombosisand coronary artery disease and is associated with an increa sed riskof open neural tube defects. The C677T variant does notindependently increase risk of these conditions in the absence ofhyperhomocysteinemia. The K4696B variant is not associated witheleva magui homocysteine levels unless a C677T variant is also present;however, the clinical significance of heterozygosity for both N605Lidu L4969H is controversial. Population data suggest that these twovaria nts are not present on the same chromosome, but rare exceptionshave been reported of triple variant MTHFR genotypes (ie. homozygousfor one variant and heterozygous for the other). Homozygosity jzsO171J has an estimated frequency of 10% to [...] 2013; 28(8):621-647. .Tiara Blake, PhDLatosha Kamara, PhDFelipe Ospina, MS, PhDMily Thomas, Jennie Figueroa, PhD 5-Mwi-896436:02 Protein C Deficiency Comments: PATIENT NOT FASTINGPERFORMED BY: BN [facility] Yumicmcodx7042 [facility] [id number] BY: CB [facility] Ztzhep1456 [address] [facility] [id number] BY: TG [facility] Profile VWZ4297 [facility] [id number] Protein C-Functional 111 % (Normal) Range: 74-151 Protein C Antigen 82 % (Normal) Range: 70-140 2-Oam-671995:02 Protein S Panel Comments: PATIENT NOT FASTINGPERFORMED BY: BN [facility] Nykxutrnrz1616 [facility] [id number] BY: [place] [employer] Marketing TechnologiesMclaren Bay Region6370 [facility] [id number] BY: KILEY [facility] Marketing TechnologiesSt. [facility] MUJ1580 ANETTE AbrahamJEFFERSON HOSP[facility] [id number] Protein S-Functional 55 % (Abnormal) Range: 60-145 [...] S, Total 90 % (Normal) Range: 58-150 5-Hbe-105633:29 PTT (Activated Partial Comments: PERFORMED BY: [place] Alter EcoSaint Barnabas Behavioral Health CenterLteput2279 [facility] [id number] Thromboplastin Time) (46886) aPTT 34 {sec} (Abnormal) Range: 24-33 Comments: This test has not been validated for monitoring unfractionated heparintherapy. aPTT-based therapeutic ranges for unfractionated heparintherapy have not been established. For general guidelines onHeparin monitoring, refer to the [facility] Marketing TechnologiesSt. [facility] Directory of Services. 1-Pqp-290573:29 PT (Prothrobim Time) (50207) Comments: PERFORMED BY: [place] Alter EcoSaint Barnabas Behavioral Health CenterBeswgb1274 [facility] [id number] Prothrombin Time 11.2 {sec} (Normal) Range: 9.1-12.0 INR 1.1 (Normal) Range: 0.8-1.2 Comments: Reference interval is for non-anticoagulated patients. . Suggested INR therapeutic range for Vitamin K anta gonist therapy: Standard Dose (moderate intensity therapeutic range): 2.0 - 3.0 Higher intensity therapeutic range 2.5 - 3.5 2-Hbb-603817:29 METABOLIC PANEL, COMPREHENSIVE Comments: PERFORMED BY: [employer] [place] [id number] (01685) ALT (SGPT) 36 [iU]/L (Abnormal) Range: 0-32 [...] Glucose, Serum 97 mg/dL (Normal) Range: 65-99 0-Azy-910876:29 CBC W/AUTO DIFF WBC (24710) Comments: PERFORMED BY: [employer] [place] [id number] Immature Grans (Abs) 0.0 {x10E3/uL} (Normal) Range: [...] CRITICAL VALUE REPEATED AND VERIFIED. CALLED TO ALVSCZAQ58/04/15 0947 Alicja Root.RESULTS READ BACK BY MILAGROS .[facility] [address] [place], [place], [id number] D-DIMER QUANT 0.88 {FEU/ug/m} (Abnormal) Range: 0.27-0.49 Comments: D-Dimer ELEVATED (>0.49): Additional studies and clinicalassessments are indicated to conclude diagnosis of:Deep Vein Thrombosis (DVT) or Pulmonary Embolism (PE) :50 CBC W/Diff, Automated Comments: [facility] [address] [place], [place], [id number] Absolute Lymph 0.85 {X10_3/ul} (Normal) Range: 0.83-4.51 [...] Antibody Present - Antibody Ab sentPerformed at: [address] [id number] Director: Desmond Cardoza PhD, Phone: [phone] EB-NAg UeR69402 < 18.0 U/mL (Normal) Range: 0.0-17.9 Comments: Negative <18.0 Equivocal 18.0 - 21.9 Positive >21.9 EB-VCA SdD19849 < 18.0 U/mL (Normal) Range: 0.0-17.9 Comments: Negative <18.0 Equivocal 18.0 - 21.9 Positive >21.9 EB-EA IgG 01344 <9.0 U/mL (Normal) Range: 0.0-8.9 Comments: Negative < 9.0 Equivocal 9.0 - 10.9 Positive >10.9 EB-VCA NlQ69597 < 36.0 U/mL (Normal) Range: 0.0-35.9 Comments: [...] Tendonitis of other site Planned Observations CBC, Platelets & Auto Diff (98598)Indication: Lymphopenia On: 07-Gdj-502587:31 Request Comments: PlEASE DO Peripheral smear send to pathology PT has had lymphopenia CALCIFEDIOL (93058)Indication: Panic On: 65-Myz-374684:11 Request VITAMIN B12 AND FOLATES (79764)Indication: Panic On: 23-Nuo-114612:11 Request T4, FREE (THYROXINE) (13150)Indication: Panic On: 44-Tzh-696641:06 Request T3, FREE (TRIDOTHYRONINE) (01098)Indication: Panic On: 48-Rzz-282757:06 Request TSH (THYROID STIMULATING HORMONE) (41461)Indication: Panic On: 13-Nnj-813343:06 Request Factor 2 (Prothrombin) Gene Mutation (57655)Indication: Pulmonary embolism on right On: :09 Request AST (SGOT) (ASPART AMINO TRANSFERASE) (70068)Indication: Elevated liver enzymes On: :06 Request Protein S Profile (39255)Indication: Pulmonary embolism on right On: :04 Request Protein C Profile (29035)Indication: Pulmonary embolism on right On: : Request Homocysteine, Plasma (48913)Indication: Pulmonary embolism on right On: 96-Qjq-971948:04 Request Antiphospholipid atb (33413)Indication: Pulmonary embolism on right On: : Request ANTICOAG ANTTHROMB III & ASSAY (90548)Indication: Pulmonary embolism on right On: : Request ANTITHROMBIN III ACTIVTY (53738)Indication: Pulmonary embolism on right On: 76-Oev-894496:04 Request Factor V Leiden (18054)Indication: Pulmonary embolism on right On: : Request MTHFR (11260)Indication: Pulmonary embolism on right On: 52-Lpu-242900:04 Request D-Dimer (42595)Indication: Chest pain On: :34 Request CBC WITH MANUAL DIFF (10021)Indication: Fever On: :49 Request Comments: stat EBV Panel (51832)Indication: Fever On: :49 Request Planned Encounters Medical; [...] VENOUS DOPPLER LOWER EXTREMITY On: 04-Oct-2015 Intent (04125)By: Mary Rose MD Comments: please do BILATERAL LOWER EXTREMITIES Doppler Ultrasound OtherBy: Fast On: 21-Mar-2015 Intent Michelle PORTILLO Comments: stat call results- legs COMPUTED TOMOGRAPHY ANGIOGRAPHY OF On: 21-Mar-2015 Intent CHEST WITH AND WITHOUT CONTRAST (28697)By: Mary Rose MD Radiology - Wrist - [...] Fever : Patient Instructions Indication: Fever Encounters Annotation/Addendum On: 17-May-2018 13:18 Encounter Diagnosis: Lymphopenia End: 17-May-2018 14:32 [facility] Office Visit On: 17-May-2018 10:01 Encounter Reason: Follow up ER - Reason for hospitalization note: (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 Note for Follow up ER: 2 weeks ago felt like going to faint and felt dizzi. Went to ER at [facility] had EKG and chest, nor End: [...] may and has been - - called [facility] thursday with the chest sx - they [...] trending down - getting sweats- works at [employer] Encounter Diagnosis: Fever, Cough [facility] [...]
--- OUTSIDE RECORDS SUMMARY | 2018-08-09 03:55 | XMS RPT_ITS ---
:1980 Author Organization [facility] Care Team Providers Name Role Phone Nicolasa Vasquez DO Attending Unavailable Nicolasa Vasquez DO Referring Unavailable Nicolasa Vasquez DO Consulting Unavailable Primay Care Physicia, No Primary Care Unavailable Elvin Suarez Attending Unavailable Tahira Arriaga Attending Unavailable Tahira Arriaga Referring Unavailable Nicolasa Vasquez Primary Care Unavailable Tahira Arriaga Attending Unavailable Tahira Arriaga Referring Unavailable Nicolasa Vasquez Primary Care Unavailable Tahira Arriaga Attending Unavailable Maria GuadaulpeesTahira rondon Referring Unavailable Nicolasa Vasquez Primary Care Unavailable Tahira Arriaga Attending Unavailable Tahira Arriaga Referring Unavailable Nicolasa Vasquez Primary Care Unavailable Edmundo Ortiz Attending Unavailable Tahira Arriaga Referring Unavailable PROBLEMS PROBLEMS DATE TYPE CONDITION / CODE ATTENDING STATUS SOURCE 06/09/2018 Unknown R00.2 - Edmundo Ortiz Active Kristen Palpitations / Community R00.2(ICD-10) Hospital Repository PROCEDURES PROCEDURES No Procedure Records FoundRESULTS RESULTS TRANSVAGINAL Observed: 06/04/2018 Status: F Source: KRISTEN NON- 2:07 PM [facility] REPOSITORY [facility] Imaging Services [address] [place] [address] Transvaginal Non- MR#: [id number] Acct: [id number] Name: ESPERANZA IGLESIAS Rep #: [id number] : 1980 F 37 From: Alice Mcginnis MD PCP: Nicolasa Vasquez DO Status: REG CLI Study: Transvaginal Non- Date of Exam: 06/04/18 Exam# [id number] Ordering Dr: Tahira Arriaga CARBURETOR MECHANIC-C STUDY: ULTRASOUND TRANSVAGINAL CLINICAL: Female, 37 years old. Lymphopenia. TECHNIQUE: Transvaginal COMPARISON: None. FINDINGS: Normal uterine size measuring 8.9 cm in maximal craniocaudal dimension. There are no myometrial masses. Normal endometrial thickness measuring 7.4 mm. There are no endometrial masses, and there is no fluid in the endometrial cavity. Normal uterine cervix. The patient status post right oophorectomy. Normal left ovary, measuring 3.5 x 3.2 x 2.6 cm. There is a 2.0 x 2.2 x 1.4 cm simple cyst. There is no free fluid in the pelvis. Polycystic ovary disease: No. US/Transvaginal Non- IMPRESSION: 2.0 x 2.2 x 1.4 cm simple left ovarian cyst. Electronically Signed: Alice Mcginnis MD at 16:07 EST Tel , Service support , CC: Tahria Arriaga NP; Nicolasa Vasquez DO [facility]: Signed PELVIC (NON ) Observed: 06/04/2018 Status: F Source: KRISTEN 2:07 PM [facility] REPOSITORY [facility] Imaging Services [address] [place] [address] Pelvic (Non ) MR#: [id number] Acct: [id number] Name: CHARLYGARRYESPERANZA L Rep #: [id number] : 1980 F 37 From: Alice Mcginnis MD PCP: Nicolasa Vasquez DO Status: REG CLI Study: Pelvic (Non ) Date of Exam: 06/04/18 Exam# [id number] Ordering Dr: Tahira Arriaga CARBURETOR MECHANIC-C STUDY: ULTRASOUND TRANSVAGINAL CLINICAL: Female, 37 years old. Lymphopenia. TECHNIQUE: Transvaginal COMPARISON: None. FINDINGS: Normal uterine size measuring 8.9 cm in maximal craniocaudal dimension. There are no myometrial masses. Normal endometrial thickness measuring 7.4 mm. There are no endometrial masses, and there is no fluid in the endometrial cavity. Normal uterine cervix. The patient status post right oophorectomy. [...] CC: Tahira Arriaga NP; Nicolasa Vasquez DO [facility]: Signed BRAIN/HEAD WITHOUT Observed: 05/28/2018 Status: F Source: KRISTEN CONTRAST 6:40 AM [facility] REPOSITORY [facility] Imaging Services [address] [place] [address] Brain/Head without Contrast MR#: [id number] Acct: [id number] Name: ESPERANZA IGLESIAS Rep #: [id number] : 1980 F 37 From: Pepe Whyte MD PCP: Nicolasa Vasquez DO Status: REG CLI Study: Brain/Head without Contrast Date of Exam: 05/28/18 Exam# [id number] Ordering Dr: Tahira ArriagaC STUDY: CT BRAIN WITHOUT CONTRAST REASON FOR EXAM: Female, 37 years old. Pressure, tingling sensation for 3 weeks RADIATION DOSAGE (If Supplied By Facility): CTDIvol = ( 44.99 ) mGy, DLP = ( 762.36 ) mGycm TECHNIQUE: Transaxial CT imaging of the brain was performed without administration of intravenous contrast material. Individualized dose optimization techniques were used for this CT. COMPARISON: None. FINDINGS: Normal soft tissue structures. Normal calvarium. Normal size ventricles and extra-axial spaces for the patient's age. Normal white matter tracts of the cerebral hemispheres. Normal basal ganglia and thalami. Normal brainstem. Normal cerebellum. There is no intracranial hemorrhage. There are no findings of an acute ischemic infarction. Normal visualized paranasal sinuses. CT/Brain/Head without Contrast IMPRESSION: Normal unenhanced CT scan of the brain. Electronically Signed: Pepe Whyte MD at 17:39 EST , Service support , CC: Tahira Arriaga NP; Nicolasa Vasquez DO [facility]: Signed ABDOMEN COMPLETE Observed: 05/28/2018 Status: F Source: [place]ER[place]OMBIE 6:40 AM [facility] REPOSITORY [facility] Imaging Services [address] [place] [address] [place] [address] Abdomen Complete MR#: [id number] Acct: [id number] Name: ESPERANZA IGLESIAS Rep #: [id number] : 1980 F 37 From: Pepe Whyte MD PCP: Nicolasa Vasquez DO Status: REG CLI Study: Abdomen Complete Date of Exam: 05/28/18 Exam# [id number] Ordering Dr: Tahira Arriaga STUDY: ABDOMINAL ULTRASOUND REASON FOR EXAM: Female, 37 years old. Lymphopenia, dizziness TECHNIQUE: Transabdominal ultrasound was performed with real-time and static lira scale imaging. TECHNICAL QUALITY: Adequate. COMPARISON: Renal ultrasound of 02/09/2014 FINDINGS: Liver: The liver measures 15.5 cm. There is normal echogenicity of the liver. The bile ducts are within normal limits. There is hepatic color flow. The direction of portal flow is hepatopetal. There is no demonstrated mass lesion. Gallbladder: Normal distended gallbladder. The gallbladder wall measures 2.8 mm. There is a negative sonographic Rincon's sign. There is no pericholecystic fluid. There are no gallstones. Common Bile Duct (C.B.D.): The common bile duct measures 3.0 mm. Pancreas: Normal size of the head, body and tail of the pancreas. There is [...] 1.6 cm. There is no demonstrated renal mass or cyst. There is no right hydronephrosis. There are small punctate calcifications of the right kidney measuring 4 mm. Left Kidney: Normal size of the left kidney. The left kidney measures 10.6 x 4.1 x 4.9 cm. Normal renal cortex. The [...] bilateral nephrolithiasis. No hydronephrosis. 3. Mild abdominal aortic atherosclerosis. Electronically Signed: Pepe Whyte MD at 17:42 EST , Service support , CC: Tahira Arriaga NP; Nicolasa Vasquez DO [facility]: Signed CBC W/DIFF, AUTOMATED Collected: 05/19/2018 Status: F Source: KRISTEN 12:19 PM [facility] REPOSITORY TYPE CODE TESTS RESULT OUT OF RANGE REFERENCE UNITS LAB L100.1000 4.4-11.0 K/mm3 Normal WBC 5.3 LAB L100.1200 4.2-5.4 M/mm3 Normal RBC 4.43 LAB L100.1300 12.0-15.0 g/dl Normal HGB 13.5 LAB L100.1400 37-47 % Normal HCT 39.5 LAB L100.1500 81-99 fL Normal MCV 89.2 LAB L100.1600 27.0-32.0 pg Normal MCH 30.5 LAB L100.1700 32-36 g/gl Normal MCHC 34.2 LAB L100.1810 11.6-14.6 % Normal RDW CV 12.3 LAB L100.1820 35.1-43.9 fl Normal RDW SD 39.7 LAB L100.1900 150-450 K/mm3 Normal PLT 203 LAB L100.2000 6.2-12.0 fl Normal MPV 10.2 LAB L100.2100 47-70 % High NEUT% 81.7 LAB L100.2200 19-41 % Low LY% 12.6 LAB L100.2300 0-10 % Normal MONO% 5.3 LAB L100.2400 0-5 % Normal EO% 0.2 LAB L100.2500 0-1 % Normal BASO% 0.0 LAB L100.2550 0.0-0.9 % Normal IM GRAN % 0.200 Result Comment: IG% - Immature Granulocytes (promyelocytes, myelocytes and metamyelocytes) > 1% indicates that a LEFT SHIFT is Present. LAB L100.2620 2.0-7.7 X10 3/uL Normal Absolute Neut 4.4 LAB L100.2720 0.83-4.51 X10 3/ul Low Absolute Lymph 0.67 Performed By: #### L100.0100 #### [facility] [address] [place], [address] EMERGENCY DEPARTMENT Observed: 05/10/2018 Status: F Source: ABER[place]OMBIE SUMMARY 12:15 AM [facility] REPOSITORY [facility] Medical Records Department [address] [place] [address] Emergency Department Summary 05/09/18 2203 MR#: [id number] Acct: [id number] Name: ESPERANZA IGLESIAS Rep #: [id number] : 1980 37 From: Elvin Suarez MD PCP: Care Physician, No Primary Status: DEP ER - ER Visit Summary Date of Service: 05/09/18 Chief Complaint: Palpitations History of Present Illness: The patient is a 37 F. Prior PE years ago history of hypertension after being ill. Normal exam patient states that today she had heart racing. Denies any chest pain. No hemoptysis. No shortness of breath. She has some nausea without vomiting. No melena. No recent travel, surgery, immobilization. No leg pain or swelling. Physical Examination: Well-appearing young female. Vital signs are stable and afebrile. Her current pulse is 73 her pulse ox is 90% on room air no signs of hypoxia. Blood pressure 126/67. She does not look septic or toxic. She is in no distress. Her is at bedside. HEENT exam unremarkable. Pupils round reactive light. Moist weeks membranes. No facial droop. Neck nontender. No lymphadenopathy. No thyromegaly. Lungs clear to auscultation bilaterally. Heart regular rate and rhythm rate about 70s no murmur. Abdomen is soft nontender. Nondistended. Normal bowel sounds no peritoneal signs. Patient moving all 4 extremities. Neurovascular intact. Calves nontender without edema or cords. Neurologically patient is awake alert with no focal motor or sensory deficits. Back exam nontender. Skin normal. No petechiae or purpura. No rashes. Test Results: EKG sinus rhythm a rate of 74 with incomplete right bundle branch block. Otherwise no acute abnormalities. CBC normal with a white count of 5. Hemoglobin of 12. Serum test negative. Chemistries are normal. Troponin is normal. TSH is normal at 1.0. Chest x-ray shows normal cardiac silhouette mediastinum. Normal size heart. Emergency Department Course and Treatment: Repeat exam patient is doing well at 2210. Exam remains normal. I went over all test results with her and her . She will be discharged home. She will follow-up with [facility] who she has been evaluated by in the past. We discussed the possibility of her having a boxing and pressing supervisor placed as an outpatient. Treatment Plan: Discharge and follow-up as an outpatient. Possible cardiac monitoring. Disposition: Discharge Impression: Acute palpitations uncertain etiology This note was generated with Captualation software. It may contain incorrect words, spelling, and punctuation that were not noted in review of the chart prior to signing ED Disposition - Plan for ED Patient: Chief Complaint: Palpitations Referrals: Care Physician,No Primary [Primary Care Provider] - What to do if you have Problems For any increased pain, shortness of breath, bleeding, nausea or vomiting, chest pain, or any unexpected problems, contact your Primary Care Provider. Call [facility] ([phone]) or report to the closest Emergency Room. Call 911 if necessary. 05/10/18 0015 <Electronically signed by Elvin Suarez MD> Date Elvin Suarez MD Cosigner Signature (If Indicated): Date CC: No Primary Care Physician DISCHARGE INSTRUCTION Observed: 05/10/2018 Status: F Source: KRISTEN 12:15 AM [facility] REPOSITORY [facility] Medical Records Department [address] [place] [address] Discharge Instruction 05/09/18 2220 MR#: [id number] Acct: [id number] Name: ESPERANZA IGLESIAS Rep #: [id number] : 1980 37 From: Elvin Suarez MD PCP: Care Physician, No Primary Status: DEP ER ED Disposition - Plan for ED Patient: Disposition: Home or Assisted Living Chief Complaint: Palpitations Instructions: ED Palpitations Referrals: Nicolasa Vasquez DO [STAFF PHYSICIAN] - As soon as possible Additional Instructions: Follow-up with Dr. Luciana Singh. You and her can discuss possible outpatient cardiac monitoring. What to do if you have Problems For any increased pain, shortness of breath, bleeding, nausea or vomiting, chest pain, or any unexpected problems, contact your Primary Care Provider. Call [facility] ([phone]) or report to the closest Emergency Room. Call 911 if necessary. 05/10/18 0015 <Electronically signed by Elvin Suarez MD> Date Elvin Suarez MD Cosigner Signature (If Indicated): Date CC: No Primary Care Physician CBC W/DIFF, AUTOMATED Collected: 05/09/2018 Status: F Source: KRISTEN 9:14 PM [facility] REPOSITORY TYPE CODE TESTS RESULT OUT OF RANGE REFERENCE UNITS LAB L100.1000 4.4-11.0 K/mm3 Normal WBC 5.4 LAB L100.1200 4.2-5.4 M/mm3 Low RBC 4.03 LAB L100.1300 12.0-15.0 g/dl Normal HGB 12.6 LAB L100.1400 37-47 % Low HCT 36.5 LAB L100.1500 81-99 fL Normal MCV 90.6 LAB L100.1600 27.0-32.0 pg Normal MCH 31.3 LAB L100.1700 32-36 g/gl Normal MCHC 34.5 LAB L100.1810 11.6-14.6 % Normal RDW CV 12.1 LAB L100.1820 35.1-43.9 fl Normal RDW SD 39.6 LAB L100.1900 150-450 K/mm3 Normal PLT 182 LAB L100.2000 6.2-12.0 fl Normal MPV 10.4 LAB L100.2100 47-70 % High NEUT% 87.8 LAB L100.2200 19-41 % Low LY% 8.2 LAB L100.2300 0-10 % Normal MONO% 3.2 LAB L100.2400 0-5 % Normal EO% 0.6 LAB L100.2500 0-1 % Normal BASO% 0.2 LAB L100.2550 0.0-0.9 % Normal IM GRAN % 0.000 Result Comment: IG% - Immature Granulocytes (promyelocytes, myelocytes and metamyelocytes) > 1% indicates that a LEFT SHIFT is Present. LAB L100.2620 2.0-7.7 X10 3/uL Normal Absolute Neut 4.7 LAB L100.2720 0.83-4.51 X10 3/ul Low Absolute Lymph 0.44 LAB L100.4500 Normal SMEAR COMMENT SCANNED Result Comment: LYMPHOPENIA NOTED Performed By: #### L100.0100, L700.6800, L500.2500, L501.4010, L501.9520 #### [facility] [address] [facility] [place], [address] ,SERUM,HCG QUALI. Collected: Status: F Source: KRISTEN 05/09/2018 9:14 PM [facility] REPOSITORY TYPE CODE TESTS RESULT OUT OF REFERENCE UNITS RANGE LAB L700.7000 0-9 Nonpreg Negative Normal HCGSQUAL NEGATIVE LAB L700.6700 =>Qualitative mIU/mL Normal HCG Qual < 1 triggr Performed By: #### L100.0100, L700.6800, L500.2500, L501.4010, L501.9520 #### [facility] [address] [place], [place], [id number] BASIC METABOLIC Collected: 05/09/2018 Status: F Source: KRISTEN PROFILE (BMP) 9:14 PM [facility] REPOSITORY TYPE CODE TESTS RESULT OUT OF RANGE REFERENCE UNITS LAB L501.0100 74-106 mg/dL Normal GLU 104 Result Comment: Fasting Glucose result from 100 to 125 mg/dL suggests IMPAIRED HOMEOSTASIS per A.D.A. criteria. Please note revised GLUCOSE reference range effective 2017. LAB L501.1000 7-18 mg/dL High BUN 21 LAB L501.1100 0.55-1.02 mg/dL Normal CREAT,SERUM 0.92 Result Comment: The validity of the calculated GFR AND GFRAA in patients over 70 years has not been determined. Clinical correlation is essential. LAB L501.1110 >60 mL/min Normal EST GFR 73 Result Comment: Non- GFR Calc LAB L501.1115 >60 mL/min Normal EST GFR - AA 88 Result Comment: GFR Calc LAB L501.1255 ml/min Normal Estimated CRCL 79.83 LAB L501.1300 10-20 RATIO High BUN/CRE 22.9 LAB L501.2200 8.5-10 mg/dL Normal .1 CA 9.2 LAB L501.5300 136-14 mmol/L Normal 5 NA 141 LAB L501.5600 3.5-5. mmol/L Normal 1 K 4.0 LAB L501.5900 98-107 mmol/L Normal CL 106 LAB L501.6100 21.0-3 mmol/L Normal 2.0 CO2 28.0 LAB L501.6200 5-15 Normal GAP 7 Performed By: #### L100.0100, L700.6800, L500.2500, L501.4010, L501.9520 #### [facility] [address] [place], [address] TROPONIN-I Collected: 05/09/2018 Status: F Source: [place]ER[place] 9:14 PM [facility] REPOSITORY TYPE CODE TESTS RESULT OUT OF RANGE REFERENCE UNITS LAB L501.4010 <0.045 ng/mL Normal < 0.015 TROPONIN-I Result Comment: TROPONIN-I EXPECTED VALUES <0.045 Negative 0.045 - 0.590 Consistent with Cardiac Damage > OR = 0.600 Critical Value Not every elevated troponin is indicative of IA. These values should be used with clinical judgement in examining the patient's clinical picture for diagnosis. To establish a diagnosis of IA versus myocardial injury, there must be a demonstrated rise and/or fall in the troponin values, in addition to ischemic symptoms, EKG changes, new regional wall motion abnormality, and/or angiographical evidence. PLEASE NOTE: REFERENCE RANGES EDITED 17 Performed By: #### L100.0100, L700.6800, L500.2500, L501.4010, L501.9520 #### [facility] [address] [place], [address] THYROID STIM HORMONE Collected: 05/09/2018 Status: F Source: [place] (TSH) 9:14 PM [facility] REPOSITORY TYPE CODE TESTS RESULT OUT OF RANGE REFERENCE UNITS LAB L501.9520 0.358-3.74 uIU/mL Normal TSH 1.02 Performed By: #### L100.0100, L700.6800, L500.2500, L501.4010, L501.9520 #### [facility] [address] [place], [address] CHEST 1 VIEW Observed: 05/09/2018 Status: F Source: ABER[place]OMBIE (PORTABLE) 8:36 PM [facility] REPOSITORY [facility] Imaging Services [address] [place] [address] Chest 1 View (Portable) MR#: [id number] Acct: [id number] Name: ESPERANZA IGLESIAS Rep #: [id number] : 1980 F 37 From: Alice Mcginnis MD PCP: Care Physician, No Primary Status: REG ER Study: Chest 1 View (Portable) Date of Exam: 05/09/18 Exam# [id number] Ordering Dr: Elvin Suarez MD STUDY: X-RAY CHEST REASON FOR EXAM: Female, 37 years old. Chest pain. TECHNIQUE: 2 frontal images of the chest were obtained. COMPARISON: April 11, 2015 FINDINGS: There is no new focal consolidation. There is no demonstrated pleural abnormality. Normal size heart. Normal mediastinum and madhu. Normal visualized pulmonary arteries. Normal visualized aortic arch and descending thoracic aorta. Normal visualized thoracic spine. Normal visualized ribs, clavicles, and shoulders. There is no demonstrated abnormality of the visualized soft tissue structures of the upper abdomen. RAD/Chest 1 View (Portable) IMPRESSION: No acute cardiopulmonary process. Electronically Signed: Alice Mcginnis MD at 21:39 EST Tel , Service support , CC: No Primary Care Physician; Elvin Suarez MD [facility]: Signed Observed: 05/02/2018 Status: F Source: [place] URINE CULTURE 2:45 PM [facility] REPOSITORY Sp. Request/Comment: - Specimen received in preservative Culture Result - <10,000 CFU/ml Normal urogenital sofia Performed By: #### URCUL #### [facility] [address] [place], [place] [address] PROGRESS Observed: 05/02/2018 Status: COMPLETED Source: [place] 2:03 PM [facility] REPOSITORY HNO ID: [id number] Author: Luciana (Kimberly) Melvin Service: (none) Author Type: Nurse Practitioner Type: Progress Notes Filed: 05/02/2018 2:22 PM Note Text: Subjective HPI Esperanza Iglesias is a 37 year old female who presents with lower back pain, bilateral but more pronounced on right side. She describes the pain as dull and continuous, but intermittent sharp pain with movement. She has taken advil at home with minor relief. Pain seems to improve if she urinates. Review of Systems Constitutional: Negative. Negative for fever. Respiratory: Negative. Cardiovascular: Negative. Gastrointestinal: Positive for nausea. Negative for abdominal pain and vomiting. Genitourinary: Positive for frequency. Negative for dysuria, flank pain, hematuria and urgency. Musculoskeletal: Positive for back pain. Negative for falls, joint pain and neck pain. BP 120/76 Pulse 84 Temp 36.5 ?C (97.7 ?F) (Left Tympanic) Resp 16 Wt 61 kg (134 lb 6.4 oz) SpO2 98% PAST MEDICAL HISTORY Diagnosis Date - NEGATIVE MEDICAL HISTORY PAST SURGICAL HISTORY Procedure Laterality Date - EXCISE PAROTID GLAND/LESION Left - OOPHORECTOMY, PART/TOTAL UNILAT/BILAT ?right for cyst ALLERGIES Patient has no known allergies. MEDICATIONS No prescriptions on file. No family history on file. Social History Substance Use Topics - Smoking status: Never Smoker - Smokeless tobacco: Never Used - Alcohol use Not on file Objective Physical Exam Cardiovascular: Normal rate and regular rhythm. Pulmonary/Chest: Effort normal and breath sounds normal. No respiratory distress. She has no wheezes. She has no rales. Abdominal: Normal appearance. There is no hepatosplenomegaly. There is no CVA tenderness. Musculoskeletal: Lumbar back: She exhibits decreased range of motion, pain and spasm. She exhibits no tenderness, no bony tenderness and no swelling. Back: Neurological: She is alert. Skin: Skin is warm and dry. No rash noted. Nursing note and vitals reviewed. ASSESSMENT/PLAN: 1. Acute midline low back pain without sciatica - ICD9: 724.2, ICD10: M54.5 (primary diagnosis) Lumbosacral sprain - Ice for localized tenderness - Warm moist heat for 20 min three times a day - Muscle relaxant- see orders - UA positve for hematuria - CYCLOBENZAPRINE 5 MG TABLET 2. Urinary frequency - ICD9: 788.41, ICD10: R35.0 acute - UA positive for hematuria - Send urine for culture - Patient education for prevention given - UA DIP, URINE (POC) - URINE CULTURE - Follow-up with your PCP in 3-5 days if symptoms have not improved or sooner if symptoms worsen - Discussed red flags and need for immediate medical evaluation if any occur. - Discussed supportive care treatment with fluids, rest and analgesia. - Discussed expected course of illness Luciana Charles APRN.KIMBERLY CNOV Observed: 05/02/2018 Status: COMPLETED Source: [place] 2:00 PM [facility] REPOSITORY Office Visit ([facility]) ESPERANZA IGLESIAS ([id number]) 1980 F Date Time Provider Department 05/02/18 2:00 PM LUCIANA CHARLES (KIMBERLY) [facility] During your visit today, we recorded the following information about you: Temperature Pulse Respiration Blood pressure 97.7 degrees 84/minute 16/minute 120/76 Weight 61 kg Luciana Charles APRN.LEGAL LIBRARIAN 05/02/2018 2:22 PM Signed Subjective HPI Esperanza Iglesias is a 37 year old female who presents with lower back pain, bilateral but more pronounced on right side. She describes the pain as dull and continuous, but intermittent sharp pain with movement. She has taken advil at home with minor relief. Pain seems to improve if she urinates. Review of Systems Constitutional: Negative. Negative for fever. Respiratory: Negative. Cardiovascular: Negative. Gastrointestinal: Positive for nausea. Negative for abdominal pain and vomiting. Genitourinary: Positive for frequency. Negative for dysuria, flank pain, hematuria and urgency. Musculoskeletal: Positive for back pain. Negative for falls, joint pain and neck pain. BP 120/76 Pulse 84 Temp 36.5 ?C (97.7 ?F) (Left Tympanic) Resp 16 Wt 61 kg (134 lb 6.4 oz) SpO2 98% PAST MEDICAL HISTORY Diagnosis Date - NEGATIVE MEDICAL HISTORY PAST SURGICAL HISTORY Procedure Laterality Date - EXCISE PAROTID GLAND/LESION Left - OOPHORECTOMY, PART/TOTAL UNILAT/BILAT ?right for cyst ALLERGIES Patient has no known allergies. MEDICATIONS No prescriptions on file. No family history on file. Social History Substance Use Topics - Smoking status: Never Smoker - Smokeless tobacco: Never Used - Alcohol use Not on file Objective Physical Exam Cardiovascular: Normal rate and regular rhythm. Pulmonary/Chest: Effort normal and breath sounds normal. No respiratory distress. She has no wheezes. She has no rales. Abdominal: Normal appearance. There is no hepatosplenomegaly. There is no CVA tenderness. Musculoskeletal: Lumbar back: She exhibits decreased range of motion, pain and spasm. She exhibits no tenderness, no bony tenderness and no swelling. Back: Neurological: She is alert. Skin: Skin is warm and dry. No rash noted. Nursing note and vitals reviewed. ASSESSMENT/PLAN: 1. Acute midline low back pain without sciatica - ICD9: 724.2, ICD10: M54.5 (primary diagnosis) Lumbosacral sprain - Ice for localized tenderness - Warm moist heat for 20 min three times a day - Muscle relaxant- see orders - UA positve for hematuria - CYCLOBENZAPRINE 5 MG TABLET 2. Urinary frequency - ICD9: 788.41, ICD10: R35.0 acute - UA positive for hematuria - Send urine for culture - Patient education for prevention given - UA DIP, URINE (POC) - URINE CULTURE - Follow-up with your PCP in 3-5 days if symptoms have not improved or sooner if symptoms worsen - Discussed red flags and need for immediate medical evaluation if any occur. - Discussed supportive care treatment with fluids, rest and analgesia. - Discussed expected course of illness ZACHARY Conde APRN.CNP 05/02/2018 2:22 PM Addendum ASSESSMENT/PLAN: 1. Acute midline low back pain without sciatica - ICD9: 724.2, ICD10: M54.5 (primary diagnosis) Lumbosacral sprain - Ice for localized tenderness - Warm moist heat for 20 min three times a day - Muscle relaxant- see orders - UA positve for hematuria - CYCLOBENZAPRINE 5 MG TABLET 2. Urinary frequency - ICD9: 788.41, ICD10: R35.0 acute - UA positive for hematuria - Send urine for culture - Patient education for prevention given - UA DIP, URINE (POC) - URINE CULTURE - Follow-up with your PCP in 3-5 days if symptoms have not improved or sooner if symptoms worsen - Discussed red flags and need for immediate medical evaluation if any occur. - Discussed supportive care treatment with fluids, rest and analgesia. - Discussed expected course of illness Luciana Charles APRN.CNP LOW BACK PAIN GENERAL INFORMATION: Low back pain is located in the small of the back. The pain may be related to sprained muscles or ligaments, to muscle spasms, or to herniation of a spinal disc. There are many possible causes of back pain, but the most common causes are gradual wear and tear, physical and emotional stress, and weak or tense muscles from lack of proper exercise. The pain can develop quickly or overnight and may be caused by unusual exertion such as moving furniture or heavy lifting. Low back pain can be severe, and sometimes you may be unable to move without pain. INSTRUCTIONS: 1. During the first 24 hours, apply ice packs to your back for 10-20 minutes 3 to 4 times a day. Put the ice in a plastic bag and place a towel between the bag of ice and your skin. After 24 hours, apply heat to your back with a heating pad set on low or a warm water bottle for 30 minutes every 3 to 4 hours. A gentle massage and warm showers may also be helpful. 2. Stay in bed for 1 to 2 days. Then begin normal activities as you can tolerate without causing pain. 3. Bend at the hips and knees; never bend from the waist only. Lift with your legs, not your back. 4. Sleep on a firm mattress or put a ? to 1 inch piece of plywood between the mattress and box springs. Do not use a waterbed because it does not support your back correctly. Sleep with a pillow under your knees or sleep on your side with your knees bent. 5. Wear low-heeled shoes. 6. If you are overweight, losing weight will help prevent another attack. 7. Begin a program of back exercises to prevent future episodes of pain. Walking, swimming, and bicycling are good exercise. Avoid exercises that put stress on the back, such as rowing and jogging. CONTACT YOUR DOCTOR OR GO TO THE ED IF: 1. You have shooting pains into your buttocks, groin, or legs. 2. You have difficulty urinating or lose control of bowel or bladder function. 3. You have numbness or weakness in your legs or feet. Luciana Charles APRN.[facility] Referring Provider: SELF [200] Allergies As of Date: 05/02/2018 (No Known Allergies) Date Reviewed: 05/02/2018 Reviewed by: Luciana ([facility]) Melvin - Fully Assessed Reason for Visit: Acute Visit [896] Cmt: UTI-lower back pain with urine frequency Reason For Visit History Recorded Primary Visit Diagnosis:Acute midline low back pain without sciatica [M54.5] Other Visit Diagnosis:Urinary frequency [R35.0] Order(s):UA DIP, URINE (POC) [5097699] Order #: [id number]. 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 Acute midline low back pain without sciatica - ICD9: 724.2, ICD10: M54.5 (primary diagnosis) Lumbosacral sprain - Ice for localized tenderness - Warm moist heat for 20 min three times a day - Muscle relaxant- see orders - UA positve for hematuria - CYCLOBENZAPRINE 5 MG TABLET 2. Urinary frequency - ICD9: 788.41, ICD10: R35.0 acute - UA positive for hematuria - Send urine for culture - Patient education for prevention given - UA DIP, URINE (POC) - URINE CULTURE - Follow-up with your PCP in 3-5 days if symptoms have not improved or sooner if symptoms worsen - Discussed red flags and need for immediate medical evaluation if any occur. - Discussed supportive care treatment with fluids, rest and analgesia. - Discussed expected course of illness Luciana Charles APRN.[employer] LOW BACK PAIN GENERAL INFORMATION: Low back pain is located in the small of the back. The pain may be related to sprained muscles or ligaments, to muscle spasms, or to herniation of a spinal disc. There are many possible causes of back pain, but the most common causes are gradual wear and tear, physical and emotional stress, and weak or tense muscles from lack of proper exercise. The pain can develop quickly or overnight and may be caused by unusual exertion such as moving furniture or heavy lifting. Low back pain can be severe, and sometimes you may be unable to move without pain. INSTRUCTIONS: 1. During the first 24 hours, apply ice packs to your back for 10-20 minutes 3 to 4 times a day. Put the ice in a plastic bag and place a towel between the bag of ice and your skin. After 24 hours, apply heat to your back with a heating pad set on low or a warm water bottle for 30 minutes every 3 to 4 hours. A gentle massage and warm showers may also be helpful. 2. Stay in bed for 1 to 2 days. Then begin normal activities as you can tolerate without causing pain. 3. Bend at the hips and knees; never bend from the waist only. Lift with your legs, not your back. 4. Sleep on a firm mattress or put a ? to 1 inch piece of plywood between the mattress and box springs. Do not use a waterbed because it does not support your back correctly. Sleep with a pillow under your knees or sleep on your side with your knees bent. 5. Wear low-heeled shoes. 6. If you are overweight, losing weight will help prevent another attack. 7. Begin a program of back exercises to prevent future episodes of pain. Walking, swimming, and bicycling are good exercise. Avoid exercises that put stress on the back, such as rowing and jogging. CONTACT YOUR DOCTOR OR GO TO THE ED IF: 1. You have shooting pains into your buttocks, groin, or legs. 2. You have difficulty urinating or lose control of bowel or bladder function. 3. You have numbness or weakness in your legs or feet. Luciana Charles APRN.[employer]RAR[employer] Prescriptions ordered this encounter Disp Refills Start End CYCLOBENZAPRINE 5 MG TABLET 12 t* 0 05/02/2018 Route: ORAL Sig: Take 1 tablet by mouth three times daily as needed for Muscle Spasm or Pain. Encounter Status:Closed by LUCIANA CHARLES on 05/02/18 ALLERGIES ALLERGIES DATE TYPE / CODE NAME / CODE REACTION SEVERITY SOURCE 05/09/2018 Drug No Known Unknown [facility] Allergy/416 Allergies/Y68794 [facility] 174127(SNOM 0388(RXNORM) Repository ED CT) Drug NO KNOWN [facility] Class/58637 ALLERGIES [address] [place] 1003(SNOMED Repository CT) ENCOUNTERS ENCOUNTERS ADMIT/DISCHARGE ACCOUNT ADMITTING ENCOUNTER LOCATION SOURCE NUMBER CLASS 06/04/2018 [id number] Ambulatory [facility] ing:US Repository 05/31/2018 [id number] Ambulatory Building:[facility] [place] Practices Repository 05/28/2018 [id number] Ambulatory [facility] ing:CT Repository 05/21/2018 [id number] Ambulatory [facility] ing:PSN Repository 05/21/2018 [id number] Ambulatory [facility] Repository 05/19/2018 [id number] Ambulatory [facility] ing:LAB Repository 05/09/2018/05/09/20 [id number] Emergency [address] ing:ED Repository 05/02/2018/05/04/20 [id number] Ambulatory [address] Repository PAYERS PAYERS ENCOUNTER GUARANTOR PAYER SUBSCRIBER SOURCE 06/04/2018 JANETT [id number] Primary Insurance:[facility] ESPERANZA Coty CHUCKNDOB: [place] [employer] [facility] [id number] Community Juan Phelan, Number: [facility] [address]Vib: [id number] Repository Date:2018-05-28 () 06/04/2018 Secondary NOT GIVENUNK [place] Insurance:SELF PAY [facility] Number: Effective Repository Date:2018-05-28 05/31/2018 Esperanza BurnsOB: Primary Esperanza BurnsOB: [place] Practices Insurance:Medical [id number] Repository [place] [facility] Ellie Phelan, Number: [place], [place] [address]Rtk: [id number] [id number]: Date: - ()Tel: [phone] () [phone] () Name:[facility] [address], [place] [address]HC: 05/28/2018 JANETT KING26 Primary [place]UNK [place] Insurance:SELF PAY [facility] [id number]: Number: Effective Repository Date:2018-05-24 () 05/21/2018 JANETT KING26 Primary NOT GIVENUNK [place] [facility] Insurance:SELF PAY [facility] [id number]: Number: Effective Repository Date:2018-05-17 () 05/21/2018 JANETT KING26 Primary NOT GIVENUNK [place] Insurance:SELF PAY [facility] [id number]: Number: Effective Repository Date:2018-05-21 () 05/19/2018 JANETT [id number] Primary [place] G[place]UNK [place] Insurance:SELF PAY [facility] [id number]: Number: Effective Repository Date:2018-05-19 () 05/09/2018 Janett Nanfm799 Primary NOT GIVENUNK [place] Insurance:SELF PAY [facility] [id number]: [phone] Number: Effective Repository [phone] () Date:2018-05-09
== END ==
PROVIDERS: Family Provider Internal Medicine; PCP Internal Medicine; Referring Provider Nurse Practitioner; Visit Provider Nurse Practitioner
DX: D72.810 Lymphocytopenia (principal); N83.202 Unspecified ovarian cyst, left side
CPT/HCPCS: 76830; 76856; 93976

== ENCOUNTER → 2018-10-21 15:39 | Outpatient (CLI) | payer SELFPAY ==
[2018-10-27 11:37] LABS: HPV Reflexed? NOT INDICATED
== END ==
PROVIDERS: Family Provider Internal Medicine; PCP Internal Medicine; Visit Provider Obstetrics & Gynecology
DX: Z12.4 Encounter for screening for malignant neoplasm of cervix (principal)
CPT/HCPCS: 88175; G0145

== ENCOUNTER → 2019-05-09 09:11 | Outpatient (CLI) | payer SELFPAY ==
[2019-05-09 10:10] LABS: Absolute Lymphocyte Count 0.77 X10^3/uL (0.83-4.51); Absolute Neutrophil Count 2.4 X10^3/uL (2.0-7.7); Basophil# 0.02 X10^3/uL; Basophil% 0.6 % (0-1); Eosinophil# 0.03 X10^3/uL; Eosinophils% 0.8 % (0-5); Hematocrit 37.9 % (37-47); Hemoglobin 12.6 g/dL (12.0-15.0); Lymphocyte # 0.77 X10^3/ul (4.0); Lymphocyte % 21.8 % (19-41); Mean Corp Hgb Conc 33.2 g/dL (32-36); Mean Corpuscular Hgb 30.7 pg (27.0-32.0); Mean Corpuscular Volume 92.4 fL (81-99); Mean Platelet Vol. 9.8 fl (6.2-12.0); Monocyte# 0.27 X10^3/uL; Monocyte% 7.6 % (0-10); NRBC Flagged by Analyzer 0 % (0-5); Neutrophil # 2.42 X10^3/uL (2.7-7.7); Neutrophil % 68.6 % (47-70); Platelet Count 194 K/mm3 (150-450); RBC Distribution Width CV 12.2 % (11.6-14.6); RBC Distribution Width SD 41.1 fl (35.1-43.9); White Blood Count 3.5 K/mm3 (4.4-11.0)
[2019-05-09 10:15] LABS: Erythrocyte Sedimentation Rate 11 mm/hr (0-20)
[2019-05-09 10:35] LABS: AST(SGOT) 86 U/L (15-37); Alanine Aminotransfer ALT/SGPT 128 U/L (13-56); Albumin, Serum 3.8 g/dL (3.2-5.0); Alkaline Phosphatase 152 U/L (45-117); Anion Gap 6 (5-15); BUN 19 mg/dL (7-18); BUN/Creat Ratio 21.5 RATIO (10-20); Calcium,Total 8.9 mg/dL (8.5-10.1); Chloride 101 mmol/L (98-107); Creatinine, Serum 0.88 mg/dL (0.55-1.02); EST Glomerular Filtration Rate 76 mL/min (>60); Est Glom Filt Rate - Afr Amer 92 mL/min (>60); Globulin 3.7 g/dL (2.2-4.2); Glucose 99 mg/dL (74-106); Potassium 4.1 mmol/L (3.5-5.1); Protein, Total 7.5 g/dL (6.4-8.2); Sodium Level 137 mmol/L (136-145)
== END ==
PROVIDERS: Family Provider Internal Medicine; PCP Internal Medicine; Referring Provider Nurse Practitioner Gerontology; Visit Provider Nurse Practitioner Gerontology
DX: R50.9 Fever, unspecified (principal)
CPT/HCPCS: 36415; 80053; 85025; 85652; 86140; 87040

== ENCOUNTER → 2019-05-19 09:01 | Outpatient (CLI) | payer SELFPAY ==
--- NOTE | 2019-05-19 09:04 | RAD_ITS ---
STUDY: X-RAY CHEST REASON FOR EXAM: Female, 38 years old. FEVER, SLIGHT COUGH TECHNIQUE: PA and lateral views of the chest. COMPARISON: May 09, 2018 FINDINGS: There is a small, new area of mixed interstitial and alveolar opacification in the right midlung and right infrahilar location. There is no associated effusion. There is no pneumothorax. There is mild left greater than right apical pleural thickening/fibrosis. Normal size heart. There is no demonstrated mediastinal lymphadenopathy or mediastinal mass lesion. Normal visualized pulmonary arteries. Normal visualized aortic arch and descending thoracic aorta. There is no evident acute osseous abnormality. Mild probably congenital sigmoidal scoliosis with mild associated rotatory component is seen throughout the inferior thoracic spine and visualized lumbar spine. There is no demonstrated abnormality of the visualized soft tissue structures of the upper abdomen. RAD/Chest PA and Lateral IMPRESSION: Small consolidation potentially representing early pneumonia versus atelectasis within the right mid lung and right infrahilar location. No associated effusion. No pneumothorax. Electronically Signed: Zachary Rojas MD at 13:51 EST , Service support ,
== END ==
PROVIDERS: Family Provider Internal Medicine; PCP Internal Medicine; Referring Provider Nurse Practitioner Gerontology; Visit Provider Nurse Practitioner Gerontology
DX: R50.9 Fever, unspecified (principal)
CPT/HCPCS: 71046

== ENCOUNTER 2021-05-28 07:23 | Outpatient (CLI) | payer SELFPAY ==
--- NOTE | 2021-05-28 07:34 | MRI_ITS ---
EXAM: MR HEAD WITHOUT INTRAVENOUS CONTRAST CLINICAL INDICATION: HEADACHE TECHNIQUE: Multiplanar and multisequence MR images of the brain were obtained without intravenous contrast. This report was created using [employer] report generation technology. COMPARISON: CT head without contrast 05/28/2018. FINDINGS: BRAIN AND EXTRA-AXIAL SPACES: No diffusion restriction throughout the brain parenchyma. No focal signal abnormalities throughout the brain parenchyma in all of the pulse sequences. No intra- or extra-axial hemorrhage. No evidence of acute infarct. No intracranial mass or mass effect. There is preservation of the lira/white matter interface. Posterior fossa structures are unremarkable. Normal ventricles and cisterns. SELLA: Unremarkable. Normal sella turcica, pituitary gland, infundibular stalk, optic chiasm and hypothalamus. AUDITORY SYSTEM: Unremarkable. The internal auditory canals are patent. BONES/JOINTS: Unremarkable. No discrete lytic or blastic abnormalities. SINUSES: Unremarkable as visualized. Clear. MASTOID AIR CELLS: Unremarkable as visualized. Clear. ORBITS: Unremarkable as visualized. Both globes, extraocular muscles, optic nerves and retrobulbar fat appear unremarkable. VASCULATURE: Unremarkable as visualized. Normal flow voids in the major intracranial circulation. MRI/Brain without Contrast IMPRESSION: Normal MRI brain without contrast. Electronically Signed: Yazan Davis MD at 8:36 EST , Service support ,
== END 2021-05-28 23:59 | disposition short-term general hospital (02) ==
PROVIDERS: PCP Internal Medicine; Referring Provider Internal Medicine; Visit Provider Internal Medicine
DX: R51.9 Headache, unspecified (principal)
CPT/HCPCS: 70551

== ENCOUNTER → 2025-04-04 | Outpatient (CLI) | payer SELFPAY ==
--- NOTE | 2025-04-04 08:15 | BI_ITS ---
EXAM: SCRN MAMM (CAD)W/MIREYA BILAT DATE: 04/04/2025 CLINICAL HISTORY: F, Age 44 y/o , SCREENING No family history. TECHNIQUE: Procedure Code: [id number] Modality: MG Procedure: SCRN MAMM (CAD)W/MIREYA BILAT COMPARISON: Baseline study. FINDINGS: TISSUE DENSITY: The breasts are extremely dense, which lowers the sensitivity of mammography. Bilateral Breast Mammographic Findings: No significant masses, calcifications or other abnormalities are identified. No suspicious masses, areas of developing architectural distortion, or suspicious calcifications. BI/SCRN MAMM (CAD)W/MIREYA BILAT IMPRESSION: Unremarkable baseline screening mammogram. OVERALL FINAL ASSESSMENT BI-RADS 1: NEGATIVE. RECOMMENDATION: Routine annual follow-up in 1 Year Additional Recommendation none A letter with findings and recommendations will be mailed to the patient. Reading Location: [id number]
== END | disposition home or self-care (01) ==
PROVIDERS: PCP Internal Medicine
DX: Z12.31 Encounter for screening mammogram for malignant neoplasm of breast (principal)
CPT/HCPCS: 77063; 77067